=== PATIENT | male | born 1985 | race Caucasian/White ===

== ENCOUNTER 2019-03-22 18:07 | Emergency (ER) | payer BC ==
[2019-03-22 18:19] VITALS: TEMP 98.2
[2019-03-22] MEDS ORDERED: methylPREDNISolone SOD SUCCI 125 MG/2 ML VIAL IV STA (18:43)
[2019-03-22] MEDS ORDERED: IPRATROPIUM-ALBUTEROL 3 ML NEB INHALATION STA (18:43)
[2019-03-22 19:14] LABS: Basophils % (A) 0 %; Eosinophils # (A) 0.1 k/uL (0-0.7); Eosinophils % (A) 1 %; HCT 40.2 % (39.0-53.0); HGB 13.2 gm/dL (13.0-17.5); Lymphocytes # (A) 2.1 k/uL (1.0-4.8); Lymphocytes % (A) 20 %; MCH 28.7 pg (25.0-35.0); MCHC 32.9 g/dL (31.0-37.0); MCV 87.4 fL (80.0-100.0); Mean Platelet Volume 6.9; Monocytes # (A) 0.3 k/uL (0-1.0); Monocytes % (A) 3 %; Neutrophils # (A) 7.6 k/uL (1.3-7.7); Neutrophils % (A) 75 %; Platelet Count 319 k/uL (150-450); RBC 4.61 m/uL (4.30-5.90); RDW 14.4 % (11.5-15.5); WBC 10.1 k/uL (3.8-10.6)
[2019-03-22 19:17] LABS: ALT 41 U/L (21-72); AST 29 U/L (17-59); Albumin 4.6 g/dL (3.5-5.0); Alkaline Phosphatase 74 U/L (38-126); Anion Gap 12 mmol/L; Blood Urea Nitrogen 19 mg/dL (9-20); Calcium 10.3 mg/dL (8.4-10.2); Carbon Dioxide 23 mmol/L (22-30); Chloride 104 mmol/L (98-107); Glucose 138 mg/dL (74-99); Potassium 3.9 mmol/L (3.5-5.1); Sodium 139 mmol/L (137-145); Total Bilirubin 0.6 mg/dL (0.2-1.3); Total Protein 7.6 g/dL (6.3-8.2)
--- NOTE | 2019-03-22 19:18 | ED ---
General Adult HPI - General Chief complaint: Upper Respiratory Infection Stated complaint: pneumonia Time Seen by Provider: 03/22/19 18:24 Source: patient Mode of arrival: ambulatory Limitations: no limitations - History of Present Illness Initial comments: 34-year-old male patient presents to the emergency department today for evaluation of cough, shortness of breath, and intermittent chest pain. Patient states he has been sick with upper respiratory symptoms for the last 3 weeks. Patient states he has been and multiple times to his primary care physician. States initially he was started on amoxicillin for upper respiratory symptoms. Patient states his symptoms persisted so he returned to his primary doctor was then switched to cefdinir. Patient states he was in to see his primary care physician on Friday once again due to worsening of his symptoms had a chest x- ray which showed pneumonia. He was switched to Levaquin. States he did re cently complete a Medrol Dosepak and has been using both Pro Air inhaler and nebulized albuterol treatments 3 times daily. Patient states that despite use of these medications his symptoms seem to be worsening. Patient states he does feel short of breath with any activity. States he is coughing but denies any sputum production. Denies any fevers or chills with states he does get clammy and hot at times. Patient denies any history of chronic lung conditions. Denies any history of smoking. 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 Patient denies any recent rash, abdominal pain, nausea, vomiting, diarrhea, constipation, back pain, numbness, tingling, dizziness, weakness, hematuria, dysuria, urinary urgency, urinary frequency, headache, visual changes, or any other complaints. - Related Data Home Medications Medication Instructions Recorded Confirmed Levofloxacin [Levaquin] 500 mg PO DAILY 03/22/19 03/22/19 Previous Rx's Medication Instructions Recorded Promethazine 6.25MG/5Ml [Phenergan 6.25 mg PO Q6H #100 ml 03/22/19 Syrup] guaiFENesin-DM 600/30MG [Mucinex 1 each PO Q12HR #10 tab.er.12h 03/22/19 Dm] predniSONE 50 mg PO DAILY #5 tablet 03/22/19 Allergies Allergy/AdvReac Type Severity Reaction Status Date / Time No Known Allergies Allergy Verified 03/22/19 18:45 Review of Systems ROS Statement: Those systems with pertinent positive or pertinent negative responses have been documented in the HPI. ROS Other: All systems not noted in ROS Statement are negative. Past Medical History Past Medical History: Hypertension History of Any Multi-Drug Resistant Organisms: None Reported Past Surgical History: Appendectomy Additional Past Surgical History / Comment(s): right shoulder Past Psychological History: No Psychological Hx Reported Smoking Status: Never smoker Past Alcohol Use History: None Reported Past Drug Use History: None Reported General Exam Limitations: no limitations General appearance: alert, in no apparent distress, other (Physical well- developed, well-nourished adult male patient in no acute distress. Vital signs upon presentation are temperature 98.2F orally, pulse 69, respirations 18, blood pressure 140/80, pulse ox 99% on room air.) Eye exam: Present: normal appearance, PERRL, EOMI. Absent: scleral icterus, conjunctival injection, periorbital swelling ENT exam: Present: normal exam, normal oropharynx, mucous membranes moist, TM's normal bilaterally Respiratory exam: Present: wheezes (Course expiratory wheezing in the posterior lower lobes). Absent: normal lung sounds bilaterally, respiratory distress, rales, rhonchi, stridor Cardiovascular Exam: Present: regular rate, normal rhythm, normal heart sounds. Absent: systolic murmur, diastolic murmur, rubs, gallop, clicks GI/Abdominal exam: Present: soft, normal bowel sounds. Absent: distended, tenderness, guarding, rebound, rigid Neurological exam: Present: alert, oriented X3, CN II-XII intact Psychiatric exam: Present: normal affect, normal mood Skin exam: Present: warm, dry, intact, normal color. Absent: rash Course Vital Signs 03/22/19 03/22/19 03/22/19 18:12 19:17 19:18 Temperature 98.2 F Pulse Rate 69 80 Respiratory 18 18 Rate Blood Pressure 140/80 O2 Sat by Pulse 99 Oximetry 03/22/19 03/22/19 19:28 21:25 Temperature Pulse Rate 84 60 Respiratory 16 Rate Blood Pressure 137/81 O2 Sat by Pulse 98 Oximetry Medical Decision Making - Lab Data Result diagrams: 03/22/19 18:54 03/22/19 18:54 Lab Results 03/22/19 03/22/19 03/22/19 Range/Units 18:54 18:54 18:54 WBC 10.1 (3.8-10.6) k/uL RBC 4.61 (4.30-5.90) m/uL Hgb 13.2 (13.0-17.5) gm/dL Hct 40.2 (39.0-53.0) % MCV 87.4 (80.0-100.0) fL MCH 28.7 (25.0-35.0) pg MCHC 32.9 (31.0-37.0) g/dL RDW 14.4 (11.5-15.5) % Plt Count 319 (150-450) k/uL Neutrophils % 75 % Lymphocytes % 20 % Monocytes % 3 % Eosinophils % 1 % Basophils % 0 % Neutrophils # 7.6 (1.3-7.7) k/uL Lymphocytes # 2.1 (1.0-4.8) k/uL Monocytes # 0.3 (0-1.0) k/uL Eosinophils # 0.1 (0-0.7) k/uL Basophils # 0.0 (0-0.2) k/uL D-Dimer (<0.60) mg/L FEU Sodium 139 (137-145) mmol/L Potassium 3.9 (3.5-5.1) mmol/L Chloride 104 (98-107) mmol/L Carbon Dioxide 23 (22-30) mmol/L Anion Gap 12 mmol/L BUN 19 (9-20) mg/dL Creatinine 0.85 (0.66-1.25) mg/dL Est GFR (CKD-EPI)AfAm >90 (>60 ml/min/1.73 sqM) Est GFR (CKD-EPI)NonAf >90 (>60 ml/min/1.73 sqM) Glucose 138 H (74-99) mg/dL Plasma Lactic Acid Sohan 1.4 (0.7-2.0) mmol/L Calcium 10.3 H (8.4-10.2) mg/dL Total Bilirubin 0.6 (0.2-1.3) mg/dL AST 29 (17-59) U/L ALT 41 (21-72) U/L Alkaline Phosphatase 74 (38-126) U/L Troponin I (0.000-0.034) ng/mL NT-Pro-B Natriuret Pep pg/mL Total Protein 7.6 (6.3-8.2) g/dL Albumin 4.6 (3.5-5.0) g/dL 03/22/19 03/22/19 03/22/19 Range/Units 18:54 18:54 18:54 WBC (3.8-10.6) k/uL RBC (4.30-5.90) m/uL Hgb (13.0-17.5) gm/dL Hct (39.0-53.0) % MCV (80.0-100.0) fL MCH (25.0-35.0) pg MCHC (31.0-37.0) g/dL RDW (11.5-15.5) % Plt Count (150-450) k/uL Neutrophils % % Lymphocytes % % Monocytes % % Eosinophils % % Basophils % % Neutrophils # (1.3-7.7) k/uL Lymphocytes # (1.0-4.8) k/uL Monocytes # (0-1.0) k/uL Eosinophils # (0-0.7) k/uL Basophils # (0-0.2) k/uL D-Dimer 0.19 (<0.60) mg/L FEU Sodium (137-145) mmol/L Potassium (3.5-5.1) mmol/L Chloride (98-107) mmol/L Carbon Dioxide (22-30) mmol/L Anion Gap mmol/L BUN (9-20) mg/dL Creatinine (0.66-1.25) mg/dL Est GFR (CKD-EPI)AfAm (>60 ml/min/1.73 sqM) Est GFR (CKD-EPI)NonAf (>60 ml/min/1.73 sqM) Glucose (74-99) mg/dL Plasma Lactic Acid Sohan (0.7-2.0) mmol/L Calcium (8.4-10.2) mg/dL Total Bilirubin (0.2-1.3) mg/dL AST (17-59) U/L ALT (21-72) U/L Alkaline Phosphatase (38-126) U/L Troponin I <0.012 (0.000-0.034) ng/mL NT-Pro-B Natriuret Pep 28 pg/mL Total Protein (6.3-8.2) g/dL Albumin (3.5-5.0) g/dL - EKG Data -: EKG Interpreted by Me EKG Comments: 34-year-old male patient presented to the emergency department today for evaluation of cough and shortness of breath. Patient states he's been sick for the last 3 weeks. Patient states he is switched and is on his third antibiotic. Physical examination reveals coarse lung sounds in the lower lobes posteriorly. He is afebrile with normal vital signs. Normal oxygen saturation. Chest x-ray shows no acute cardio pulmonary process. Labs reviewed and reveals normal white blood cell count. Negative d-dimer. Patient will be treated for acute bronchitis with prednisone, he is urged to increase frequency of his home breathing treatments to every 3-4 hours. He is instructed to follow-up with his primary care physician for recheck in 1-2 days. Return parameters discussed in detail. He verbalizes understanding and agrees with this plan. Disposition Clinical Impression: Acute bronchitis Disposition: HOME SELF-CARE Condition: Good Instructions (If sedation given, give patient instructions): Acute Bronchitis (ED) Additional Instructions: Complete medications as directed. Follow-up through primary care physician for recheck in 1-2 days. Return to the emergency department immediately for any new, worsening, or concerning symptoms Prescriptions: guaiFENesin-DM 600/30MG [Mucinex Dm] 1 each PO Q12HR #10 tab.er.12h Promethazine 6.25MG/5Ml [Phenergan Syrup] 6.25 mg PO Q6H #100 ml predniSONE 50 mg PO DAILY #5 tablet Is patient prescribed a controlled substance at d/c from ED?: No Referrals: Lloyd Mayes MD [Primary Care Provider] - 1-2 days Time of Disposition: 21:29
--- NOTE | 2019-03-22 19:22 | XR ---
EXAMINATION TYPE: XR chest 2V DATE OF EXAM: 03/22/2019 COMPARISON: NONE HISTORY: Cough and congestion TECHNIQUE: Frontal and lateral views of the chest are obtained. FINDINGS: Heart and mediastinum are normal. Lungs are clear. Diaphragm is normal. Bony thorax appear s normal. IMPRESSION: Normal chest. No change.
[2019-03-22 21:26] VITALS: BP 137/81; PULSE 60; RESP 16
== END 2019-03-22 21:40 | disposition home or self-care (01) ==
LOC: EC 18:07
DX: J20.9 Acute bronchitis, unspecified (principal)
CPT/HCPCS: 36415; 94640; 93005; 85379; 83880; 80053; 83605; 84484; 85025; 87040; 71046; 99285; 96374; J2930

== ENCOUNTER 2020-01-19 08:53 | Emergency (ER) | payer BC ==
[2020-01-19] MEDS ORDERED: SODIUM CHLORIDE 0.9% 1,000 ML IV STA (09:38)
[2020-01-19 09:47] LABS: Basophils % (A) 1 %; Eosinophils # (A) 0.2 k/uL (0-0.7); Eosinophils % (A) 4 %; HGB 14.5 gm/dL (13.0-17.5); Lymphocytes # (A) 1.4 k/uL (1.0-4.8); Lymphocytes % (A) 23 %; MCH 29.2 pg (25.0-35.0); MCV 88.4 fL (80.0-100.0); Mean Platelet Volume 7.1; Monocytes # (A) 0.3 k/uL (0-1.0); Monocytes % (A) 5 %; Neutrophils # (A) 3.8 k/uL (1.3-7.7); Neutrophils % (A) 66 %; Platelet Count 253 k/uL (150-450); RBC 4.97 m/uL (4.30-5.90); RDW 13.2 % (11.5-15.5); WBC 5.8 k/uL (3.8-10.6)
--- NOTE | 2020-01-19 09:52 | ED ---
General Adult HPI <Pritesh Haynes - Last Filed: 01/19/20 11:11> - General Source: patient, RN notes reviewed Mode of arrival: ambulatory Limitations: no limitations <Db Link - Last Filed: 01/19/20 15:32> - General Chief complaint: Dizziness Stated complaint: Vomiting/Dizziness Time Seen by Provider: 01/19/20 09:13 - History of Present Illness Initial comments: 34-year-old male with a past medical history of hypertension presents to the emergency department for a chief complaint of balance issues. Patient states he woke up at 6:30 this morning and felt dizzy. Patient states he did earlier feelike the room is spinning and somewhat lightheaded. Patient states that he seems like when he walks he veers somewhat to the left. He states he feels like he is going to fall when he walks. He does not feel especially dizzy at this time. Patient has never had this happen before. He denies headache. (Db Link) - Related Data Home Medications Medication Instructions Recorded Confirmed Multivitamins, Thera [Multivitamin 1 tab PO DAILY 01/19/20 01/19/20 (formulary)] Terbinafine [LamISIL] 250 mg PO DAILY 01/19/20 01/19/20 buPROPion HCL [Wellbutrin XL] 150 mg PO DAILY 01/19/20 01/19/20 Allergies Allergy/AdvReac Type Severity Reaction Status Date / Time No Known Allergies Allergy Verified 01/19/20 09:54 Review of Systems ROS Other: All systems not noted in ROS Statement are negative. <Pritesh Haynes - Last Filed: 01/19/20 11:11> ROS Other: All systems not noted in ROS Statement are negative. <Db Link - Last Filed: 01/19/20 15:32> ROS Statement: Those systems with pertinent positive or pertinent negative responses have been documented in the HPI. Past Medical History Past Medical History: Hypertension History of Any Multi-Drug Resistant Organisms: None Reported Past Surgical History: Appendectomy Additional Past Surgical History / Comment(s): right shoulder Past Psychological History: Depression Smoking Status: Never smoker Past Alcohol Use History: None Reported Past Drug Use History: None Reported <Db Link - Last Filed: 01/19/20 15:32> General Exam Limitations: no limitations General appearance: alert, in no apparent distress Head exam: Present: atraumatic, normocephalic, normal inspection Eye exam: Present: normal appearance, PERRL, EOMI. Absent: scleral icterus, co njunctival injection, periorbital swelling ENT exam: Present: normal exam, mucous membranes moist Neck exam: Present: normal inspection, full ROM. Absent: tenderness, meningismus, lymphadenopathy Respiratory exam: Present: normal lung sounds bilaterally. Absent: respiratory distress, wheezes, rales, rhonchi, stridor Cardiovascular Exam: Present: regular rate, normal rhythm, normal heart sounds. Absent: systolic murmur, diastolic murmur, rubs, gallop, clicks GI/Abdominal exam: Present: soft, normal bowel sounds. Absent: distended, tenderness, guarding, rebound, rigid Neurological exam: Present: alert, oriented X3, CN II-XII intact. Absent: normal gait (When walking at a normal paced patient does walk to the left) Expanded Patient oriented to: Present: person, place, time Speech: Present: fluid speech Cranial nerves: EOM's Intact: Normal, Tongue Deviation: Normal, Nystagmus: Normal, Facial Sensation: Normal Cerebellar function: Finger to Nose: Normal, Romberg: Normal Upper motor neuron: Amos Neglect: Normal, Pronator Drift: Normal Sensory exam: Upper Extremity Light Touch: Normal, Upper Extremity Pin Prick: Normal, Lower Extremity Light Touch: Normal, Lower Extremity Pin Prick: Normal Motor strength exam: RUE: 5 (Hold for 10 seconds), LUE: 5 (Hold for 10 seconds), RLE: 5 (Hold for 5 seconds), LLE: 5 (Holds for 5 seconds) Eye Response: (4) open spontaneously Motor Response: (6) obeys commands Verbal Response: (5) oriented Horacio Total: 15 Psychiatric exam: Present: normal affect, normal mood <Db Link - Last Filed: 01/19/20 15:32> Course <Pritesh Haynes - Last Filed: 01/19/20 11:11> Vital Signs 01/19/20 01/19/20 01/19/20 08:55 09:48 09:51 Temperature 97.5 F L 98.4 F Pulse Rate 48 L 54 L 56 L Respiratory 18 16 16 Rate Blood Pressure 178/117 145/73 147/72 O2 Sat by Pulse 99 98 100 Oximetry 01/19/20 01/19/20 01/19/20 10:01 11:00 11:12 Temperature 97.2 F L Pulse Rate 50 L 49 L 70 Respiratory 16 18 16 Rate Blood Pressure 125/91 126/80 123/80 O2 Sat by Pulse 95 98 98 Oximetry 01/19/20 01/19/20 01/19/20 11:30 12:00 12:30 Temperature 97.2 F L 98.2 F 98.0 F Pulse Rate 48 L 47 L 46 L Respiratory 18 18 18 Rate Blood Pressure 127/86 119/82 131/86 O2 Sat by Pulse 98 97 98 Oximetry 01/19/20 13:00 Temperature 98.2 F Pulse Rate 47 L Respiratory 18 Rate Blood Pressure 130/89 O2 Sat by Pulse 97 Oximetry - Reevaluation(s) Reevaluation #1: 01/19/20 09:55 Patient is also examined by myself, Dr. Haynes. Patient states she noticed symptoms when he woke this morning. Last known well was last night. Patient complains of dizziness described as a spinning type sensation. Symptoms worsen with position changes and upright position. Patient states he does notice that he leans the left. This was noticed by staff when they tried and delayed him. Otherwise neurological exam by myself was negative. Pupils equal round reactive to light. Extraocular muscles intact. Cranial nerves II-12 intact. Good sensation throughout. Extremity strength 5/5 throughout.. Finger Nose test within normal limits bilaterally. No nystagmus. Case was discussed with neural interventional list, Dr. jolly who agrees patient is not a TPA candidate. He says of CT and CTA are negative patient can be admitted for neurology evaluation here. 01/19/20 11:[address] Ibanez, who will admit (Pritesh Haynes) EKG Findings - EKG Comments: EKG Findings:: Sinus bradycardia, ventricular rate 42, PA interval 178, QTC 374 <Db Link - Last Filed: 01/19/20 15:32> Medical Decision Making - Lab Data Result diagrams: 01/19/20 09:30 01/19/20 09:30 <Pritesh Haynes - Last Filed: 01/19/20 11:11> - Lab Data Result diagrams: 01/19/20 09:30 01/19/20 09:30 <Db Link - Last Filed: 01/19/20 15:32> - Medical Decision Making 34-year-old male presents for dizziness and gait disturbance. Patient is walking to the left. A code stroke was called as soon as i saw patient. Dr. Haynes spoke to neuro interventionalist who recommends no TPA. NIH of 0 however patient does walk to the left. CT brain shows no acute intracranial hemorrhage, mass effect, or midline shift. CT angiogram head and neck shows no significant focal stenosis at the level of [place], internal carotid arteries. CBC CMP unremarkable. Chest x-ray shows no acute process. Patient reevaluated and continues to feel dizzy. Case was discussed with Dr. Ibanez by Dr. Haynes who accepts admission, neurology consulted (Db Link) - Lab Data Lab Results 01/19/20 01/19/20 01/19/20 Range/Units 09:30 09:30 09:30 WBC 5.8 (3.8-10.6) k/uL RBC 4.97 (4.30-5.90) m/uL Hgb 14.5 (13.0-17.5) gm/dL Hct 44.0 (39.0-53.0) % MCV 88.4 (80.0-100.0) fL MCH 29.2 (25.0-35.0) pg MCHC 33.0 (31.0-37.0) g/dL RDW 13.2 (11.5-15.5) % Plt Count 253 (150-450) k/uL Neutrophils % 66 % Lymphocytes % 23 % Monocytes % 5 % Eosinophils % 4 % Basophils % 1 % Neutrophils # 3.8 (1.3-7.7) k/uL Lymphocytes # 1.4 (1.0-4.8) k/uL Monocytes # 0.3 (0-1.0) k/uL Eosinophils # 0.2 (0-0.7) k/uL Basophils # 0.0 (0-0.2) k/uL PT 10.0 (9.0-12.0) sec INR 1.0 (<1.2) APTT 23.5 (22.0-30.0) sec Sodium 138 (137-145) mmol/L Potassium 4.2 (3.5-5.1) mmol/L Chloride 103 (98-107) mmol/L Carbon Dioxide 25 (22-30) mmol/L Anion Gap 10 mmol/L BUN 15 (9-20) mg/dL Creatinine 0.92 (0.66-1.25) mg/dL Est GFR (CKD-EPI)AfAm >90 (>60 ml/min/1.73 sqM) Est GFR (CKD-EPI)NonAf >90 (>60 ml/min/1.73 sqM) Glucose 116 H (74-99) mg/dL Calcium 9.8 (8.4-10.2) mg/dL Total Bilirubin 0.5 (0.2-1.3) mg/dL AST 24 (17-59) U/L ALT 31 (4-49) U/L Alkaline Phosphatase 104 (38-126) U/L Troponin I (0.000-0.034) ng/mL Total Protein 7.8 (6.3-8.2) g/dL Albumin 4.8 (3.5-5.0) g/dL 01/19/20 Range/Units 09:30 WBC (3.8-10.6) k/uL RBC (4.30-5.90) m/uL Hgb (13.0-17.5) gm/dL Hct (39.0-53.0) % MCV (80.0-100.0) fL MCH (25.0-35.0) pg MCHC (31.0-37.0) g/dL RDW (11.5-15.5) % Plt Count (150-450) k/uL Neutrophils % % Lymphocytes % % Monocytes % % Eosinophils % % Basophils % % Neutrophils # (1.3-7.7) k/uL Lymphocytes # (1.0-4.8) k/uL Monocytes # (0-1.0) k/uL Eosinophils # (0-0.7) k/uL Basophils # (0-0.2) k/uL PT (9.0-12.0) sec INR (<1.2) APTT (22.0-30.0) sec Sodium (137-145) mmol/L Potassium (3.5-5.1) mmol/L Chloride (98-107) mmol/L Carbon Dioxide (22-30) mmol/L Anion Gap mmol/L BUN (9-20) mg/dL Creatinine (0.66-1.25) mg/dL Est GFR (CKD-EPI)AfAm (>60 ml/min/1.73 sqM) Est GFR (CKD-EPI)NonAf (>60 ml/min/1.73 sqM) Glucose (74-99) mg/dL Calcium (8.4-10.2) mg/dL Total Bilirubin (0.2-1.3) mg/dL AST (17-59) U/L ALT (4-49) U/L Alkaline Phosphatase (38-126) U/L Troponin I <0.012 (0.000-0.034) ng/mL Total Protein (6.3-8.2) g/dL Albumin (3.5-5.0) g/dL Disposition <Pritesh Haynes - Last Filed: 01/19/20 11:11> Time of Disposition: 15:32 <Db Link - Last Filed: 01/19/20 15:32> Clinical Impression: Gait instability, Dizzy Disposition: ADMITTED IP TO THIS HOSP Referrals: Lloyd Mayes MD [Primary Care Provider] - 1-2 days
[2020-01-19 09:55] LABS: Partial Thromboplastin Time 23.5 sec (22.0-30.0)
[2020-01-19 10:03] LABS: ALT 31 U/L (4-49); AST 24 U/L (17-59); African American GFR (CKD) >90 (>60 ml/min/1.73 sqM); Albumin 4.8 g/dL (3.5-5.0); Alkaline Phosphatase 104 U/L (38-126); Anion Gap 10 mmol/L; Blood Urea Nitrogen 15 mg/dL (9-20); Calcium 9.8 mg/dL (8.4-10.2); Carbon Dioxide 25 mmol/L (22-30); Chloride 103 mmol/L (98-107); Glucose 116 mg/dL (74-99); Non-African American GFR(CKD) >90 (>60 ml/min/1.73 sqM); Potassium 4.2 mmol/L (3.5-5.1); Sodium 138 mmol/L (137-145); Total Bilirubin 0.5 mg/dL (0.2-1.3); Total Protein 7.8 g/dL (6.3-8.2)
--- NOTE | 2020-01-19 10:09 | CT ---
EXAMINATION TYPE: CT brain wo con DATE OF EXAM: 01/19/2020 COMPARISON: NONE HISTORY: dizziness, neurologic deficit. CT DLP: 1030 mGycm. Automated Exposure Control for Dose Reduction was Utilized. TECHNIQUE: CT scan of the head is performed without contrast. FINDINGS: There is no acute intracranial hemorrhage, mass effect, or midline shift identified. Prom inent temporal dural reflections are seen. The ventricles and sulci are within normal limits in size. The globes are intact and the visualized sinuses are clear. Incidentally noted left-sided rona bu llosa. Hypoplastic frontal sinuses. Mastoid air cells are well aerated as are the middle ear cavities . IMPRESSION: No acute intracranial hemorrhage, mass effect, or midline shift is seen.
--- NOTE | 2020-01-19 10:28 | CT ---
EXAMINATION TYPE: CT angio head neck DATE OF EXAM: 01/19/2020 HISTORY: Dizziness acute onset stroke like symptoms. Code stroke. COMPARISON: NONE CT DLP: 830 mGycm. Automated Exposure Control for Dose Reduction was Utilized. TECHNIQUE: CTA scan of the head and neck are performed with IV Contrast, patient injected with 65 mL of Isovue 370, axial images are obtained, coronal and sagittal reformatted images are reviewed. Thre e-D reconstructed images are created on an independent workstation and reviewed. FINDINGS: Carotid/Vascular Structures: Normal three-vessel origin from the aortic arch. Normal origin right com mon carotid artery from brachiocephalic artery. No significant plaque or stenosis in common, external , or internal carotid arteries bilaterally including a level carotid bulb. There is slightly larger dominant left vertebral artery. Vertebral arteries are patent to the basilar junction. There is patent left posterior communicating artery. There is hypoplastic right posterior communicating artery. No significant focal stenosis or aneurysmal change in the posterior circulation . Images of the anterior circulation show poor visualization of anterior communicating artery as ante rior cerebral arteries are may relate overlapping. No significant focal stenosis or aneurysmal change is present. Other: Dextroconvex scoliosis centered upper to mid thoracic spine. IMPRESSION: No significant focal stenosis or aneurysmal change at the level of the [place]. No significant focal stenosis in common or internal carotid arteries bilaterally.
--- NOTE | 2020-01-19 10:50 | XR ---
EXAMINATION TYPE: XR chest 2V DATE OF EXAM: 01/19/2020 COMPARISON: Prior chest dated 03/22/2019 HISTORY: Altered mental status, dizziness TECHNIQUE: Frontal and lateral views of the chest are obtained. FINDINGS: There is no focal air space opacity, pleural effusion, or pneumothorax seen. The cardiac silhouette size is within normal limits. The osseous structures are intact. IMPRESSION: No acute cardiopulmonary process.
[2020-01-19] MEDS ORDERED: MECLIZINE 12.5 MG TAB PO STA (11:05)
[2020-01-19] MEDS ORDERED: METOCLOPRAMIDE 5 MG/ML 2 ML VIAL IVP STA (11:05)
[2020-01-19] MEDS ORDERED: ASPIRIN 325 MG TAB PO STA (11:11)
[2020-01-19 13:22] VITALS: BP 130/89; PULSE 47; RESP 18; TEMP 98.2
--- NOTE | 2020-01-19 18:00 | ECHOF ---
Referral Reason:Thrombus MEASUREMENTS -------- HEIGHT: 162.6 cm WEIGHT: 113.4 kg BP: 125/91 RVIDd: 3.3 cm (< 3.3) IVSd: 1.0 cm (0.6 - 1.1) LVIDd: 4.8 cm (3.9 - 5.3) LVPWd: 1.1 cm (0.6 - 1.1) IVSs: 1.2 cm LVIDs: 3.1 cm LVPWs: 1.2 cm Ao Diam: 3.6 cm (2.0 - 3.7) AV Cusp: 2.3 cm (1.5 - 2.6) LA Diam: 4.0 cm (2.7 - 3.8) MV EXCURSION: 18.395 mm (> 18.000) MV EF SLOPE: 80 mm/s (70 - 150) EPSS: 0.8 cm MV E Jacob: 0.70 m/s MV DecT: 207 ms MV A Jacob: 0.55 m/s MV E/A Ratio: 1.27 RAP: 5.00 mmHg RVSP: 24.97 mmHg FINDINGS -------- Sinus rhythm. This was a technically good study. LV size, wall thickness and systolic function are normal, with an EF greater than 55%. The left rosanna tricular size is normal. Overall left ventricular systolic function is low-normal with, an EF betwe en 50 - 55 %. The diastolic filling pattern is normal for the age of the patient 7.31. The right ventricle is normal in size. The left atrial size is normal. The right atrial size is normal. The aortic valve is trileaflet, and appears structurally normal. No aortic stenosis or regurgitation. Mild mitral regurgitation is present. Mild tricuspid regurgitation present. Right ventricular systolic pressure is normal at < 35 mmHg. There is no evidence of pulmonary hypertension. There is no pulmonic regurgitation present. The aortic root size is normal. There is no pericardial effusion. CONCLUSIONS -------- 1. Sinus rhythm. 2. This was a technically good study. 3. LV size, wall thickness and systolic function are normal, with an EF greater than 55%. 4. The left ventricular size is normal. 5. Overall left ventricular systolic function is low-normal with, an EF between 50 - 55 %. 6. The diastolic filling pattern is normal for the age of the patient 7.31 7. The right ventricle is normal in size. 8. The left atrial size is normal. 9. The right atrial size is normal. 10. The aortic valve is trileaflet, and appears structurally normal. No aortic stenosis or regurgitat ion. 11. Mild mitral regurgitation is present. 12. Mild tricuspid regurgitation present. 13. Right ventricular systolic pressure is normal at < 35 mmHg. 14. There is no evidence of pulmonary hypertension. 15. There is no pulmonic regurgitation present. 16. The aortic root size is normal. 17. There is no pericardial effusion. BALLISTIC EXPERT: Marge Squires RDCS
[2020-01-20] MEDS ORDERED: ASPIRIN 325 MG TAB PO SCH (09:00)
== END 2020-01-19 15:20 | disposition other institution (70) ==
LOC: EC 08:53
DX: R42 Dizziness and giddiness (principal); R26.81 Unsteadiness on feet; I10 Essential (primary) hypertension; F32.9 Major depressive disorder, single episode, unspecified; Z79.899 Other long term (current) drug therapy
CPT/HCPCS: 36415; 93005; 93306; 80053; 84484; 85025; 85610; 85730; 71046; 70496; 70450; 70498; 99285; 96374; 96361 ×2; J2765; Q9967

== ENCOUNTER 2020-06-16 17:11 | Emergency (ER) | payer BC, OTHER ==
[2020-06-16 17:27] VITALS: TEMP 98.8
[2020-06-16 18:24] LABS: Basophils # (A) 0.1 k/uL (0-0.2); Basophils % (A) 1 %; Eosinophils # (A) 0.2 k/uL (0-0.7); Eosinophils % (A) 4 %; HCT 40.3 % (39.0-53.0); HGB 13.3 gm/dL (13.0-17.5); Lymphocytes # (A) 2.2 k/uL (1.0-4.8); Lymphocytes % (A) 36 %; MCH 29.4 pg (25.0-35.0); MCHC 32.9 g/dL (31.0-37.0); MCV 89.3 fL (80.0-100.0); Mean Platelet Volume 7.3; Monocytes # (A) 0.5 k/uL (0-1.0); Monocytes % (A) 7 %; Neutrophils # (A) 3.1 k/uL (1.3-7.7); Neutrophils % (A) 50 %; Platelet Count 251 k/uL (150-450); RBC 4.51 m/uL (4.30-5.90); RDW 13.3 % (11.5-15.5); WBC 6.3 k/uL (3.8-10.6)
[2020-06-16] MEDS ORDERED: ASPIRIN 81 MG PO STA (18:30)
[2020-06-16] MEDS ORDERED: SODIUM CHLORIDE 0.9% 1,000 ML IV STA (18:30)
--- NOTE | 2020-06-16 18:35 | ED ---
General Adult HPI - General Chief complaint: Extremity Problem,Nontraumatic Stated complaint: Blood Clot left leg Time Seen by Provider: 06/16/20 18:00 Source: patient, RN notes reviewed Mode of arrival: ambulatory Limitations: no limitations - History of Present Illness Initial comments: Patient is a pleasant 35-year-old male presenting to the emergency Department with complaints of left leg discomfort. Patient had an episode of chest discomfort throughout the night while he was in bed. Patient states symptoms felt indigestion and lasted around 1 hour. No radiation. No associated dyspnea, diaphoresis, or nausea. Patient has no chest discomfort at this time. Patient never had any dyspnea. Patient has had left leg discomfort for the past week. Patient states it feels like a pulled muscle. Patient states he did go to his primary care physician office and ultrasound there was concerning for blood clot. Patient advised to come to the emergency department - Related Data Home Medications Medication Instructions Recorded Confirmed Multivitamins, Thera [Multivitamin 1 tab PO DAILY 01/19/20 01/19/20 (formulary)] Terbinafine [LamISIL] 250 mg PO DAILY 01/19/20 01/19/20 buPROPion HCL [Wellbutrin XL] 150 mg PO DAILY 01/19/20 01/19/20 Previous Rx's Medication Instructions Recorded Apixaban [Eliquis Starter Pack 0 mg PO DIRECTED 30 Days #1 pack 06/16/20 (for VTE)] Allergies Allergy/AdvReac Type Severity Reaction Status Date / Time No Known Allergies Allergy Verified 01/19/20 09:54 Review of Systems ROS Statement: Those systems with pertinent positive or pertinent negative responses have been documented in the HPI. ROS Other: All systems not noted in ROS Statement are negative. Constitutional: Denies: fever Eyes: Denies: eye pain ENT: Denies: ear pain Respiratory: Denies: cough, dyspnea Cardiovascular: Reports: chest pain Endocrine: Denies: fatigue Gastrointestinal: Denies: abdominal pain Genitourinary: Denies: dysuria Musculoskeletal: Reports: as per HPI Skin: Denies: rash Neurological: Denies: weakness Past Medical History Past Medical History: Hypertension History of Any Multi-Drug Resistant Organisms: None Reported Past Surgical History: Appendectomy Additional Past Surgical History / Comment(s): right shoulder Past Psychological History: Depression Smoking Status: Never smoker Past Alcohol Use History: None Reported Past Drug Use History: None Reported General Exam Limitations: no limitations General appearance: alert, in no apparent distress Head exam: Present: normocephalic Eye exam: Present: normal appearance Neck exam: Present: normal inspection Respiratory exam: Present: normal lung sounds bilaterally. Absent: chest wall tenderness Cardiovascular Exam: Present: regular rate, normal rhythm Expanded Peripheral pulses: 2+: Radial (R), Radial (L), Dorsalis Pedis (R), Dorsalis Pedis (L) GI/Abdominal exam: Present: soft. Absent: tenderness Extremities exam: Present: calf tenderness (Left calf tenderness). Absent: pedal edema Neurological exam: Present: alert Psychiatric exam: Present: normal affect, normal mood Skin exam: Present: normal color Course Vital Signs 06/16/20 06/16/20 17:23 19:22 Temperature 98.8 F Pulse Rate 73 72 Respiratory 16 18 Rate Blood Pressure 139/88 124/81 O2 Sat by Pulse 99 99 Oximetry EKG Findings - EKG Comments: EKG Findings:: Normal sinus rhythm 66. UT 164. QRS 102. QT 402. QTC 421. Normal axis. Normal QRS. Inverted T-wave in lead III. Medical Decision Making - Medical Decision Making Case discussed with [facility] physician, Dr. looney covering for Dr. Mayes who did not feel the patient needed to be admitted. He does recommend outpatient treat ment with either Eliqucarroll Xarelto. Patient reevaluated and resting comfortably in bed. Patient updated on results and is comfortable with discharge home. - Lab Data Result diagrams: 06/16/20 18:19 06/16/20 18:19 Lab Results 06/16/20 06/16/20 06/16/20 Range/Units 18:19 18:19 18:19 WBC 6.3 (3.8-10.6) k/uL RBC 4.51 (4.30-5.90) m/uL Hgb 13.3 (13.0-17.5) gm/dL Hct 40.3 (39.0-53.0) % MCV 89.3 (80.0-100.0) fL MCH 29.4 (25.0-35.0) pg MCHC 32.9 (31.0-37.0) g/dL RDW 13.3 (11.5-15.5) % Plt Count 251 (150-450) k/uL Neutrophils % 50 % Lymphocytes % 36 % Monocytes % 7 % Eosinophils % 4 % Basophils % 1 % Neutrophils # 3.1 (1.3-7.7) k/uL Lymphocytes # 2.2 (1.0-4.8) k/uL Monocytes # 0.5 (0-1.0) k/uL Eosinophils # 0.2 (0-0.7) k/uL Basophils # 0.1 (0-0.2) k/uL PT 9.7 (9.0-12.0) sec INR 0.9 (<1.2) APTT 23.9 (22.0-30.0) sec D-Dimer 0.62 H (<0.60) mg/L FEU Sodium 137 (137-145) mmol/L Potassium 4.0 (3.5-5.1) mmol/L Chloride 104 (98-107) mmol/L Carbon Dioxide 24 (22-30) mmol/L Anion Gap 9 mmol/L BUN 19 (9-20) mg/dL Creatinine 1.27 H (0.66-1.25) mg/dL Est GFR (CKD-EPI)AfAm 84 (>60 ml/min/1.73 sqM) Est GFR (CKD-EPI)NonAf 72 (>60 ml/min/1.73 sqM) Glucose 113 H (74-99) mg/dL Calcium 9.4 (8.4-10.2) mg/dL Magnesium 1.9 (1.6-2.3) mg/dL Total Bilirubin 0.4 (0.2-1.3) mg/dL AST 25 (17-59) U/L ALT 31 (4-49) U/L Alkaline Phosphatase 88 (38-126) U/L Troponin I (0.000-0.034) ng/mL NT-Pro-B Natriuret Pep pg/mL Total Protein 7.1 (6.3-8.2) g/dL Albumin 4.3 (3.5-5.0) g/dL 06/16/20 06/16/20 Range/Units 18:19 18:19 WBC (3.8-10.6) k/uL RBC (4.30-5.90) m/uL Hgb (13.0-17.5) gm/dL Hct (39.0-53.0) % MCV (80.0-100.0) fL MCH (25.0-35.0) pg MCHC (31.0-37.0) g/dL RDW (11.5-15.5) % Plt Count (150-450) k/uL Neutrophils % % Lymphocytes % % Monocytes % % Eosinophils % % Basophils % % Neutrophils # (1.3-7.7) k/uL Lymphocytes # (1.0-4.8) k/uL Monocytes # (0-1.0) k/uL Eosinophils # (0-0.7) k/uL Basophils # (0-0.2) k/uL PT (9.0-12.0) sec INR (<1.2) APTT (22.0-30.0) sec D-Dimer (<0.60) mg/L FEU Sodium (137-145) mmol/L Potassium (3.5-5.1) mmol/L Chloride (98-107) mmol/L Carbon Dioxide (22-30) mmol/L Anion Gap mmol/L BUN (9-20) mg/dL Creatinine (0.66-1.25) mg/dL Est GFR (CKD-EPI)AfAm (>60 ml/min/1.73 sqM) Est GFR (CKD-EPI)NonAf (>60 ml/min/1.73 sqM) Glucose (74-99) mg/dL Calcium (8.4-10.2) mg/dL Magnesium (1.6-2.3) mg/dL Total Bilirubin (0.2-1.3) mg/dL AST (17-59) U/L ALT (4-49) U/L Alkaline Phosphatase (38-126) U/L Troponin I <0.012 (0.000-0.034) ng/mL NT-Pro-B Natriuret Pep 31 pg/mL Total Protein (6.3-8.2) g/dL Albumin (3.5-5.0) g/dL - Radiology Data Radiology results: report reviewed (Computed tomography scan the chest shows no evidence of pulmonary embolus. Ultrasound of the left shows mild calf thrombosis, possibly acute) Disposition Clinical Impression: DVT (deep venous thrombosis) Disposition: HOME SELF-CARE Condition: Stable Instructions (If sedation given, give patient instructions): Deep Vein Thromb osis (ED) Additional Instructions: Please follow-up with primary care physician Friday. Return for chest pain, difficulty breathing, worsening or change in symptoms or any other concerns. Please start Eliquis in the morning, prescription given for starter pack. Prescription sent to [facility] Prescriptions: Apixaban [Eliquis Starter Pack (for VTE)] 0 mg PO DIRECTED 30 Days #1 pack Is patient prescribed a controlled substance at d/c from ED?: No Referrals: Evens Mayes MD [STAFF PHYSICIAN] - 1-2 days Time of Disposition: 20:38
[2020-06-16] MEDS ORDERED: HEPARIN SODIUM,PORCINE 10,000 UNIT/ML 1 ML VIAL IV ONE (18:36)
[2020-06-16] MEDS ORDERED: HEPARIN SODIUM,PORCINE 5,000 UNIT/ML 1 ML VIAL IV PRN (18:36)
[2020-06-16 18:42] LABS: INR 0.9 (<1.2); Partial Thromboplastin Time 23.9 sec (22.0-30.0); Prothrombin Time 9.7 sec (9.0-12.0)
[2020-06-16] MEDS ORDERED: HEPARIN SOD,PORK IN 0.45% NACL 25,000 UNIT in 0.45% NACL 1 250ML.BAG IV SCH (18:45)
[2020-06-16 19:04] LABS: D-Dimer 0.62 mg/L FEU (<0.60)
[2020-06-16 19:13] LABS: Albumin 4.3 g/dL (3.5-5.0); Calcium 9.4 mg/dL (8.4-10.2); Magnesium 1.9 mg/dL (1.6-2.3); Total Bilirubin 0.4 mg/dL (0.2-1.3); Total Protein 7.1 g/dL (6.3-8.2)
[2020-06-16 19:23] VITALS: RESP 18
--- NOTE | 2020-06-16 19:29 | CT ---
EXAMINATION TYPE: CT angio chest DATE OF EXAM: 06/16/2020 COMPARISON: None HISTORY: chest pain, SOB CT DLP: 751.7 mGycm Automated exposure control for dose reduction was used. CONTRAST: Performed with IV Contrast, patient injected with 100 mL of Isovue 370. There are 3-D post processed images. Heart is top normal in size. There is no pericardial effusion. There are no hilar masses. There is no mediastinal adenopathy. Thoracic aorta appears normal. There is no aneurysm or dissection. The lungs are clear of consolidation. There is no pleural effusion. There is normal contrast opacification of the pulmonary arteries. There are no filling defects. There is some spurring in the thoracic spine. IMPRESSION: No evidence of pulmonary embolism. Mild cardiomegaly.
--- NOTE | 2020-06-16 20:24 | US ---
EXAMINATION TYPE: US venous doppler duplex LE LT DATE OF EXAM: 06/16/2020 8:04 PM COMPARISON: NONE CLINICAL HISTORY: Pain, possible DVT. Scanned today at a clinic that states they found left calf thro mbus SIDE PERFORMED: Left TECHNIQUE: The lower extremity deep venous system is examined utilizing real time linear array sonog paul with graded compression, doppler sonography and color-flow sonography. VESSELS IMAGED: External Iliac Vein (EIV) Common Femoral Vein Deep Femoral Vein Greater Saphenous Vein * Femoral Vein Popliteal Vein Small Saphenous Vein * Proximal Calf Veins (* superficial vessels) Left Leg: Unable to compress posterior tibial veins just distal to convergence of popiteal vein, int ernal echoes, anterior branch had minimal flow while posterior branch had no flow detected. The rest of the leg was negative for DVT IMPRESSION: There is evidence for some limited deep vein thrombosis in the left calf. This could be a cute.
[2020-06-16] MEDS ORDERED: APIXABAN 5 MG TAB PO STA (20:39)
[2020-06-16 21:19] VITALS: BP 137/88; PULSE 59
== END 2020-06-16 21:19 | disposition home or self-care (01) ==
LOC: EC 17:11
DX: I82.4Z2 Acute embolism and thrombosis of unspecified deep veins of left distal lower extremity (principal); F32.9 Major depressive disorder, single episode, unspecified; Z79.899 Other long term (current) drug therapy
CPT/HCPCS: 36415; 93005; 85379; 83880; 80053; 83735; 84484; 85025; 85610; 85730; 93971; 71275; 99284; 96365; 96366; 96375; J1644 ×2; Q9967

== ENCOUNTER 2023-12-18 10:51 | Emergency (ER) | payer BC, OTHER ==
--- NOTE | 2023-12-18 10:56 | ED ---
Extremity Problem HPI - General Stated complaint: POSS BLOOD CLOT IN LEG Time Seen by Provider: 12/18/23 10:55 - History of Present Illness Initial comments: Quick note: Patient is a 38-year-old gentleman who presents emergency room with complaints of pain and swelling to the right leg for the last 2 days. History DVT. Denies a chest pain shortness breath or hemoptysis. Does not take any anticoagulation. the patient started to feel some chest pain while laying on the stretcher upon arrival into the er. the patient seems anxious but he feels like he moved wrong in the bed and pulled it. he denies any drug use, cigarette smoking, family hx of early cardiac . - Related Data Home Medications Medication Instructions Recorded Confirmed No Known Home Medications 12/18/23 12/18/23 Allergies Allergy/AdvReac Type Severity Reaction Status Date / Time No Known Allergies Allergy Verified 12/18/23 11:59 Review of Systems ROS Statement: Those systems with pertinent positive or pertinent negative responses have been documented in the HPI. ROS Other: All systems not noted in ROS Statement are negative. Past Medical History Past Medical History: Hypertension History of Any Multi-Drug Resistant Organisms: None Reported Past Surgical History: Appendectomy Additional Past Surgical History / Comment(s): right shoulder Past Psychological History: Depression Smoking Status: Never smoker Past Alcohol Use History: None Reported Past Drug Use History: None Reported General Exam - General Exam Comments Initial Comments: Visual Physical Exam Vital signs reviewed General: Well-appearing, nontoxic, no acute distress. Head: Normocephalic, atraumatic Eyes: PERRLA, EOMI ENT: Airway patent Chest: Nonlabored breathing Skin: No visual rash, normal skin tone Neuro: Alert and oriented 3 Musculoskeletal: No gross abnormalities Limitations: no limitations General appearance: alert, in no apparent distress Head exam: Present: atraumatic Eye exam: Present: normal appearance ENT exam: Present: normal exam Neck exam: Present: full ROM Respiratory exam: Present: normal lung sounds bilaterally Cardiovascular Exam: Present: regular rate GI/Abdominal exam: Present: soft Extremities exam: Present: full ROM, calf tenderness (mid calf tenderness, no swelling, no warmth, no erythema), other (palpable distal pulses). Absent: joint swelling Back exam: Present: full ROM Neurological exam: Present: alert, oriented X3, CN II-XII intact Psychiatric exam: Present: normal affect, normal mood Skin exam: Present: warm, dry Course Vital Signs 12/18/23 12/18/23 11:04 14:38 Temperature 98.2 F Pulse Rate 68 61 Respiratory 18 18 Rate Blood Pressure 158/88 146/91 O2 Sat by Pulse 100 96 Oximetry - Reevaluation(s) Reevaluation #1: 12/18/23 1354 : Patient is resting comfortably but this time. He is in no distress. Discussed imaging results which were upper DVT and chest x-rays negative for any acute changes. Patient's labs are unremarkable. EKG is negative for any acute ST segment elevation or changes. Medical Decision Making - Medical Decision Making Quick note portion completed by myself, electronically SARKIS Ibanez. Was pt. sent in by a medical professional or institution (KIRBY Jennings, CIVIL DESIGN SPECIALIST, urgent care, hospital, or jail...) When possible be specific @ -[No] Did you speak to anyone other than the patient for history (EMS, parent, family, police, friend...)? What history was obtained from this source @ - at The bedside Did you review nursing and triage notes (agree or disagree)? Why? @ -[I reviewed and agree with nursing and triage notes] Were old charts reviewed (outside hosp., previous admission, EMS record, old EKG, old radiological studies, urgent care reports/EKG's, jail records)? Report findings @ -[No old charts were reviewed] Differential Diagnosis (chest pain, altered mental status, abdominal pain women, abdominal pain men, vaginal bleeding, weakness, fever, dyspnea, syncope, headache, dizziness, GI bleed, back pain, seizure, CVA, palpatations, mental health, musculoskeletal)? @ -Muscle strain, electrolyte abnormality, DVT, anxiety, angina, costoc hondritis EKG interpreted by me (3pts min.). @ -Shows sinus bradycardia rate of [address] segment elevation or T- wave changes X-rays interpreted by me (1pt min.). @ -[chest x-rays are negative for any acute changes rpreted by me (1pt min.). @ -[None done] U/S interpreted by me (1pt. min.). @ -[None done] What testing was considered but not performed or refused? (CT, X-rays, U/S, labs)? Why? @ -[None] What meds were considered but not given or refused? Why? @ -[None] Did you discuss the management of the patient with other professionals (tanya roman i.e. , PA, CIVIL DESIGN SPECIALIST, lab, RT, psych nurse, rn social work, credit department manager, teacher, conservation enforcement officer, case preparer and liner)? Give summary @ -[No] Was smoking cessation discussed for >3mins.? @ -[No] Was critical care preformed (if so, how long)? @ -[No] Were there social determinants of health that impacted care today? How? (Homelessness, low income, unemployed, alcoholism, drug addiction, tr ansportation, low edu. Level, literacy, decrease access to med. care, shelter, rehab)? @ -[No] Was there de-escalation of care discussed even if they declined (Discuss DNR or withdrawal of care, Hospice)? DNR status @ -[No] What co-morbidities impacted this encounter? (DM, HTN, Smoking, COPD, CAD, Cancer, CVA, ARF, Chemo, Hep., AIDS, mental health diagnosis, sleep apnea, morbid obesity)? @history DVT patient admitted / discharged? Hospital course, mention meds given and route, prescriptions, significant lab abnormalities, going to OR and other pertinent info. @ patient is stable to follow up as an outpatient and does not require admission. new problem with uncertain prognosis? @ -[No] Drug Therapy requiring intensive monitoring for toxicity (Heparin, Nitro, Insulin, Cardizem)? @ -[No] Were any procedures done? @ -[No] Diagnosis/symptom? @ -calf strain, chest pain, suspected anxiety vs muscle strain of the chest wall Acute, or Chronic, or Acute on Chronic? @ -[acute Uncomplicated (without systemic symptoms) or Complicated (systemic symptoms)? @ -[default] Side effects of treatment? @ -[No] Exacerbation, Progression, or Severe Exacerbation? @ -[No] Poses a threat to life or bodily function? How? (Chest pain, [place], NE, pneumonia, PE, COPD, DKA, ARF, appy, cholecystitis, CVA, Diverticulitis, Homicidal, Suicidal, threat to staff... and all critical care pts) @ -[No] - Lab Data Result diagrams: 12/18/23 11:19 12/18/23 11:19 Lab Results 12/18/23 12/18/23 12/18/23 Range/Units 11:19 11:19 11:19 WBC 6.0 (3.8-10.6) k/uL RBC 4.81 (4.30-5.90) m/uL Hgb 14.1 (13.0-17.5) gm/dL Hct 42.7 (39.0-53.0) % MCV 88.7 (80.0-100.0) fL MCH 29.4 (25.0-35.0) pg MCHC 33.1 (31.0-37.0) g/dL RDW 14.4 (11.5-15.5) % Plt Count 275 (150-450) k/uL MPV 7.1 Neutrophils % 55 % Lymphocytes % 36 % Monocytes % 3 % Eosinophils % 3 % Basophils % 1 % Neutrophils # 3.3 (1.3-7.7) k/uL Lymphocytes # 2.2 (1.0-4.8) k/uL Monocytes # 0.2 (0-1.0) k/uL Eosinophils # 0.2 (0-0.7) k/uL Basophils # 0.0 (0-0.2) k/uL PT 10.3 (10.0-12.5) sec INR 0.9 (<1.2) APTT 24.9 (22.0-30.0) sec Sodium 139 (137-145) mmol/L Potassium 3.8 (3.5-5.1) mmol/L Chloride 104 (98-107) mmol/L Carbon Dioxide 26 (22-30) mmol/L Anion Gap 9 mmol/L BUN 14 (9-20) mg/dL Creatinine 0.98 (0.66-1.25) mg/dL Est GFR (CKD-EPI)AfAm >90 (>60 ml/min/1.73 sqM) Est GFR (CKD-EPI)NonAf >90 (>60 ml/min/1.73 sqM) Glucose 132 H (74-99) mg/dL Calcium 9.6 (8.4-10.2) mg/dL Total Bilirubin 0.7 (0.2-1.3) mg/dL AST 73 H (17-59) U/L ALT 120 H (4-49) U/L Alkaline Phosphatase 99 (38-126) U/L Troponin I (0.000-0.034) ng/mL Total Protein 7.3 (6.3-8.2) g/dL Albumin 4.6 (3.5-5.0) g/dL Urine Color Urine Appearance (Clear) Urine pH (5.0-8.0) Ur Specific [place] (1.001-1.035) Urine Protein (Negative) Urine Glucose (UA) (Negative) Urine Ketones (Negative) Urine Blood (Negative) Urine Nitrite (Negative) Urine Bilirubin (Negative) Urine Urobilinogen (<2.0) mg/dL Ur Leukocyte Esterase (Negative) 12/18/23 12/18/23 Range/Units 12:08 12:11 WBC (3.8-10.6) k/uL RBC (4.30-5.90) m/uL Hgb (13.0-17.5) gm/dL Hct (39.0-53.0) % MCV (80.0-100.0) fL MCH (25.0-35.0) pg MCHC (31.0-37.0) g/dL RDW (11.5-15.5) % Plt Count (150-450) k/uL MPV Neutrophils % % Lymphocytes % % Monocytes % % Eosinophils % % Basophils % % Neutrophils # (1.3-7.7) k/uL Lymphocytes # (1.0-4.8) k/uL Monocytes # (0-1.0) k/uL Eosinophils # (0-0.7) k/uL Basophils # (0-0.2) k/uL PT (10.0-12.5) sec INR (<1.2) APTT (22.0-30.0) sec Sodium (137-145) mmol/L Potassium (3.5-5.1) mmol/L Chloride (98-107) mmol/L Carbon Dioxide (22-30) mmol/L Anion Gap mmol/L BUN (9-20) mg/dL Creatinine (0.66-1.25) mg/dL Est GFR (CKD-EPI)AfAm (>60 ml/min/1.73 sqM) Est GFR (CKD-EPI)NonAf (>60 ml/min/1.73 sqM) Glucose (74-99) mg/dL Calcium (8.4-10.2) mg/dL Total Bilirubin (0.2-1.3) mg/dL AST (17-59) U/L ALT (4-49) U/L Alkaline Phosphatase (38-126) U/L Troponin I <0.012 (0.000-0.034) ng/mL Total Protein (6.3-8.2) g/dL Albumin (3.5-5.0) g/dL Urine Color Light Yellow Urine Appearance Clear (Clear) Urine pH 5.5 (5.0-8.0) Ur Specific [place] 1.018 (1.001-1.035) Urine Protein Negative (Negative) Urine Glucose (UA) Negative (Negative) Urine Ketones Negative (Negative) Urine Blood Negative (Negative) Urine Nitrite Negative (Negative) Urine Bilirubin Negative (Negative) Urine Urobilinogen <2.0 (<2.0) mg/dL Ur Leukocyte Esterase Negative (Negative) - EKG Data -: EKG Interpreted by Ca - Radiology Data Radiology results: report reviewed, image reviewed Disposition Clinical Impression: Strain of calf muscle, Leg pain, Chest pain, Anxiety Disposition: HOME SELF-CARE Condition: Good Instructions (If sedation given, give patient instructions): Chest Pain (ED), Leg Pain (ED) Is patient prescribed a controlled substance at d/c from ED?: No When asked, does pt state using other controlled substances?: No Referrals: Lloyd Mayes MD [Primary Care Provider] - 1-2 days Time of Disposition: 14:01
[2023-12-18 11:23] VITALS: RESP 18; TEMP 98.2
[2023-12-18 11:31] LABS: Basophils % (A) 1 %; Eosinophils # (A) 0.2 k/uL (0-0.7); Eosinophils % (A) 3 %; HCT 42.7 % (39.0-53.0); HGB 14.1 gm/dL (13.0-17.5); Lymphocytes # (A) 2.2 k/uL (1.0-4.8); Lymphocytes % (A) 36 %; MCH 29.4 pg (25.0-35.0); MCHC 33.1 g/dL (31.0-37.0); MCV 88.7 fL (80.0-100.0); Mean Platelet Volume 7.1; Monocytes # (A) 0.2 k/uL (0-1.0); Monocytes % (A) 3 %; Neutrophils # (A) 3.3 k/uL (1.3-7.7); Neutrophils % (A) 55 %; Platelet Count 275 k/uL (150-450); RBC 4.81 m/uL (4.30-5.90); RDW 14.4 % (11.5-15.5)
--- NOTE | 2023-12-18 11:40 | US ---
EXAMINATION TYPE: US venous doppler duplex LE RT DATE OF EXAM: 12/18/2023 11:31 AM COMPARISON: 06/16/2020. CLINICAL INDICATION: Male, 38 years old with history of pain, swelling, hx DVT; Pt states right calf pain SIDE PERFORMED: Right TECHNIQUE: The lower extremity deep venous system is examined utilizing real time linear array sonog paul with graded compression, doppler sonography and color-flow sonography. VESSELS IMAGED: Common Femoral Vein Deep Femoral Vein Greater Saphenous Vein * Femoral Vein Popliteal Vein Small Saphenous Vein * Proximal Calf Veins (* superficial vessels) Right Leg: Negative for DVT IMPRESSION: Grayscale, color doppler, spectral doppler imaging performed of the deep veins of the lo wer extremities. There is normal flow, compressibility, vascular waveforms.
[2023-12-18 11:41] LABS: INR 0.9 (<1.2); Partial Thromboplastin Time 24.9 sec (22.0-30.0); Prothrombin Time 10.3 sec (10.0-12.5)
[2023-12-18 11:46] LABS: ALT 120 U/L (4-49); AST 73 U/L (17-59); African American GFR (CKD) >90 (>60 ml/min/1.73 sqM); Albumin 4.6 g/dL (3.5-5.0); Alkaline Phosphatase 99 U/L (38-126); Anion Gap 9 mmol/L; Blood Urea Nitrogen 14 mg/dL (9-20); Calcium 9.6 mg/dL (8.4-10.2); Carbon Dioxide 26 mmol/L (22-30); Chloride 104 mmol/L (98-107); Glucose 132 mg/dL (74-99); Non-African American GFR(CKD) >90 (>60 ml/min/1.73 sqM); Potassium 3.8 mmol/L (3.5-5.1); Sodium 139 mmol/L (137-145); Total Bilirubin 0.7 mg/dL (0.2-1.3); Total Protein 7.3 g/dL (6.3-8.2)
--- NOTE | 2023-12-18 12:14 | XR ---
EXAMINATION TYPE: XR chest 1V portable DATE OF EXAM: 12/18/2023 Comparison: 01/19/2020 Clinical History: 38-year-old male chest pain Findings: The cardiomediastinal silhouette, aorta, and pulmonary vasculature are within normal limits. Lungs and pleural spaces are clear. Impression: No acute cardiopulmonary process.
[2023-12-18 12:39] LABS: Appearance,Urine Clear (Clear); Bilirubin,Urine Negative (Negative); Blood,Urine Negative (Negative); Color,Urine Light Yellow; Glucose,Urine (UA) Negative (Negative); Ketones,Urine Negative (Negative); Leukocyte Esterase,Urine Negative (Negative); Nitrite,Urine Negative (Negative); PH, Urine 5.5 (5.0-8.0); Protein,Urine Negative (Negative); Specific Gravity,Urine 1.018 (1.001-1.035); Urobilinogen,Urine <2.0 mg/dL (<2.0)
[2023-12-18 15:03] VITALS: BP 146/91; PULSE 61
== END 2023-12-18 14:38 | disposition home or self-care (01) ==
LOC: EC 10:51
DX: S86.911A Strain of unspecified muscle(s) and tendon(s) at lower leg level, right leg, initial encounter (principal); R00.1 Bradycardia, unspecified; F41.9 Anxiety disorder, unspecified; I10 Essential (primary) hypertension; Z86.59 Personal history of other mental and behavioral disorders; X50.0XXA Overexertion from strenuous movement or load, initial encounter
CPT/HCPCS: 36415; 71045; 80053; 81003; 84484; 85025; 85610; 85730; 93005; 99284

== ENCOUNTER 2024-04-02 07:12 | Inpatient (IN) | payer OTHER ==
[2024-04-02] MEDS: NITROGLYCERIN SL TABS 0.4 MG TAB SUBLINGUAL STA ×3 (07:28→10:01)
--- NOTE | 2024-04-02 07:28 | ED ---
General Adult HPI - General Chief complaint: Chest Pain Stated complaint: Chest pain Time Seen by Provider: 04/02/24 07:21 Source: patient, RN notes reviewed Mode of arrival: ambulatory Limitations: no limitations - History of Present Illness Initial comments: Patient is a 39-year-old male presenting to the emergency department with concerns with chest discomfort. Onset of symptoms was around an hour ago. Woke up from sleep. Difficult to describe type of discomfort. Discomfort is severe. No associated dyspnea or diaphoresis. Patient has had some nausea and did vomit once. Patient did have similar symptoms a couple days ago. No calf pain. No leg swelling. - Related Data Home Medications Medication Instructions Recorded Confirmed No Known Home Medications 12/18/23 04/02/24 Allergies Allergy/AdvReac Type Severity Reaction Status Date / Time No Known Allergies Allergy Verified 04/02/24 07:24 Review of Systems ROS Statement: Those systems with pertinent positive or pertinent negative responses have been documented in the HPI. ROS Other: All systems not noted in ROS Statement are negative. Constitutional: Denies: fever Eyes: Denies: eye pain ENT: Denies: ear pain Respiratory: Denies: cough Cardiovascular: Reports: as per HPI, chest pain Endocrine: Denies: fatigue Gastrointestinal: Reports: nausea, vomiting. Denies: abdominal pain Genitourinary: Denies: dysuria Musculoskeletal: Denies: back pain Past Medical History Past Medical History: Hypertension Additional Past Medical History / Comment(s): dvt History of Any Multi-Drug Resistant Organisms: None Reported Past Surgical History: Appendectomy Additional Past Surgical History / Comment(s): right shoulder Past Psychological History: Depression Smoking Status: Never smoker Past Alcohol Use History: None Reported Past Drug Use History: None Reported General Exam Limitations: no limitations General appearance: alert, other (Patient does appear uncomfortable) Head exam: Present: normocephalic Eye exam: Present: normal appearance Neck exam: Present: normal inspection Respiratory exam: Present: normal lung sounds bilaterally. Absent: chest wall tenderness Cardiovascular Exam: Present: regular rate, normal rhythm, normal heart sounds Expanded Peripheral pulses: 2+: Radial (R), Radial (L), Dorsalis Pedis (R), Dorsalis Pedis (L) GI/Abdominal exam: Present: soft. Absent: tenderness Extremities exam: Present: normal inspection. Absent: pedal edema, calf tenderness Neurological exam: Present: alert Psychiatric exam: Present: normal affect, normal mood Skin exam: Present: normal color Course Vital Signs 04/02/24 07:14 Temperature 98.3 F Pulse Rate 62 Respiratory 18 Rate Blood Pressure 176/76 O2 Sat by Pulse 100 Oximetry - Reevaluation(s) Reevaluation #1: 04/02/24 07:28 Case was discussed with Dr. Leon who will take patient to the [facility]eral [facility]. EKG Findings - EKG Results: EKG: interpreted by ERMD (ST elevation in leads V2 through V5. aVL also. ST depression in leads III and aVF.), sinus rhythm, normal axis, normal QRS Medical Decision Making - Medical Decision Making Was pt. sent in by a medical professional or institution (, PA, VIDEO EDITING INTERN, urgent care, hospital, or skilled nursing...) When possible be specific @ -No Did you speak to anyone other than the patient for history (EMS, parent, family, police, friend...)? What history was obtained from this source @ - is present and states onset was when he woke an hour prior to arrival Did you review nursing and triage notes (agree or disagree)? Why? @ -I reviewed and agree with nursing and triage notes Were old charts reviewed (outside hosp., previous admission, EMS record, old EKG, old radiological studies, urgent care reports/EKG's, skilled nursing records)? Report findings @ -Previous charts reviewed for past medical history including hypertension Differential Diagnosis (chest pain, altered mental status, abdominal pain women, abdominal pain men, vaginal bleeding, weakness, fever, dyspnea, syncope, headache, dizziness, GI bleed, back pain, seizure, CVA, palpatations, mental health, musculoskeletal)? @ -Differential Chest Pain: Stable Angina, Unstable Angina, STEMI, NSTEMI Aortic Dissection, Pneumothorax, Musculoskeletal, Esophageal Spasm GERD, Cholecystitis, Pancreatitis, Zoster, this is not meant to be an all-inclusive list. EKG interpreted by me (3pts min.). @ -As above X-rays interpreted by me (1pt min.). @ -Chest x-ray shows no acute process. CT interpreted by me (1pt min.). @ -None done U/S interpreted by me (1pt. min.). @ -None done What testing was considered but not performed or refused? (CT, X-rays, U/S, labs)? Why? @ -None What meds were considered but not given or refused? Why? @ -None Did you discuss the management of the patient with other professionals (professionals i.e. , PA, VIDEO EDITING INTERN, lab, RT, psych nurse, social insurance specialist, digital media buyer, teacher, life science technical officer, special education case manager)? Give summary @ -Case was discussed with Dr. Leon who will take patient to the Funeral Home Manager. [facility] [place] physician Dr. Prajapati who will admit covering Dr. Mayes. Was smoking cessation discussed for >3mins.? @ -No Was critical care preformed (if so, how long)? @ -15 minutes critical care time Were there social determinants of health that impacted care today? How? (Homelessness, low income, unemployed, alcoholism, drug addiction, transportation, low edu. Level, literacy, decrease access to med. care, senior care, rehab)? @ -No Was there de-escalation of care discussed even if they declined (Discuss DNR or withdrawal of care, Hospice)? DNR status @ -No What co-morbidities impacted this encounter? (DM, HTN, Smoking, COPD, CAD, Cancer, CVA, ARF, Chemo, Hep., AIDS, mental health diagnosis, sleep apnea, morbid obesity)? @ -Underlying hypertension Was patient admitted / discharged? Hospital course, mention meds given and route, prescriptions, significant lab abnormalities, going to OR and other pertinent info. @ -Patient given aspirin, heparin and nitroglycerin. Patient going to the [facility] and will be admitted following this. Admission orders written. Patient and family updated. Undiagnosed new problem with uncertain prognosis? @ -No Drug Therapy requiring intensive monitoring for toxicity (Heparin, Nitro, Insulin, Cardizem)? @ -No Were any procedures done? @ -No Diagnosis/symptom? @ -STEMI Acute, or Chronic, or Acute on Chronic? @ -Acute Uncomplicated (without systemic symptoms) or Complicated (systemic symptoms)? @ -Default Side effects of treatment? @ -No Exacerbation, Progression, or Severe Exacerbation? @ -No Poses a threat to life or bodily function? How? (Chest pain, [place], MA, pneumonia, PE, COPD, DKA, ARF, appy, cholecystitis, CVA, Diverticulitis, Homicidal, Suicidal, threat to staff... and all critical care pts) @ -Potential threat to cardiac function Critical Care Time Critical Care Time: Yes Total Critical Care Time: 15 Disposition Clinical Impression: ST elevation myocardial infarction (STEMI) Disposition: ADMITTED IP TO THIS HOSP Condition: Critical Is patient prescribed a controlled substance at d/c from ED?: No Time of Disposition: 07:37
[2024-04-02] MEDS ORDERED: HEPARIN SODIUM 1,000 UN/ML (10ML VL) IV PRN (07:31)
[2024-04-02] MEDS: HEPARIN SODIUM 1,000 UN/ML (10ML VL) IV ONE (07:34)
[2024-04-02] MEDS: ASPIRIN 81 MG PO STA (07:35)
--- NOTE | 2024-04-02 07:37 | XR ---
EXAMINATION TYPE: XR chest 1V portable DATE OF EXAM: 04/02/2024 COMPARISON: 12/18/2023 INDICATION: Chest pain TECHNIQUE: Single frontal view of the chest is obtained. FINDINGS: The heart size is normal. The pulmonary vasculature is normal. The lungs are clear. IMPRESSION: 1. No acute pulmonary process.
[2024-04-02 07:41] LABS: Basophils # (A) 0.1 k/uL (0-0.2); Basophils % (A) 1 %; Eosinophils # (A) 0.2 k/uL (0-0.7); Eosinophils % (A) 3 %; HCT 45.8 % (39.0-53.0); HGB 14.8 gm/dL (13.0-17.5); Lymphocytes # (A) 2.3 k/uL (1.0-4.8); Lymphocytes % (A) 27 %; MCH 29.6 pg (25.0-35.0); MCHC 32.2 g/dL (31.0-37.0); MCV 91.8 fL (80.0-100.0); Mean Platelet Volume 7.2; Monocytes # (A) 0.4 k/uL (0-1.0); Monocytes % (A) 5 %; Neutrophils # (A) 5.2 k/uL (1.3-7.7); Neutrophils % (A) 63 %; Platelet Count 290 k/uL (150-450); RBC 4.99 m/uL (4.30-5.90); RDW 13.4 % (11.5-15.5); WBC 8.2 k/uL (3.8-10.6)
[2024-04-02] MEDS: LIDOCAINE 1% INJ 10MG/ML (20 ML MDV) SQ ONE (07:49)
[2024-04-02] MEDS: VERAPAMIL SYRINGE (5 MG/10 ML) INTRAARTER ONE (07:49)
[2024-04-02] MEDS: MIDAZOLAM 2 MG/2 ML VIAL IVP ONE (07:53)
[2024-04-02] MEDS: fentaNYL (PF) 50 MCG/ML 2 ML AMP IVP ONE (07:54)
[2024-04-02] MEDS: SODIUM CHLORIDE 0.9% 1,000 ML IV ONE ×2 (07:54→08:37)
[2024-04-02] MEDS: HEPARIN SODIUM 1,000 UN/ML (10ML VL) IVP ONE (07:54)
[2024-04-02 07:57] LABS: INR 0.9 (<1.2); Partial Thromboplastin Time 23.8 sec (22.0-30.0); Prothrombin Time 10.5 sec (10.0-12.5)
[2024-04-02 08:01] LABS: ALT 40 U/L (4-49); AST 27 U/L (17-59); African American GFR (CKD) >90 (>60 ml/min/1.73 sqM); Albumin 4.7 g/dL (3.5-5.0); Alkaline Phosphatase 81 U/L (38-126); Anion Gap 6 mmol/L; Blood Urea Nitrogen 15 mg/dL (9-20); Calcium 9.3 mg/dL (8.4-10.2); Carbon Dioxide 30 mmol/L (22-30); Chloride 103 mmol/L (98-107); Glucose 116 mg/dL (74-99); Magnesium 1.9 mg/dL (1.6-2.3); Non-African American GFR(CKD) 87 (>60 ml/min/1.73 sqM); Potassium 4.1 mmol/L (3.5-5.1); Sodium 139 mmol/L (137-145); Total Bilirubin 0.6 mg/dL (0.2-1.3); Total Protein 7.7 g/dL (6.3-8.2)
[2024-04-02] MEDS: TICAGRELOR 90 MG TAB PO ONE (08:04)
[2024-04-02] MEDS: IOPAMIDOL-370 100ML BTL INJ ONE ×3 (08:08→08:53)
[2024-04-02] MEDS: HYDROmorphone 0.5 MG/0.5 ML SYRINGE IVP ONE (08:26)
[2024-04-02] MEDS: NITROGLYCERIN 1000MCG/10ML SYRINGE INTRACORON ONE (08:29)
[2024-04-02] MEDS: niCARdipine 25 MG/10 ML VIAL INTRACORON ONE (08:39)
[2024-04-02] MEDS: FUROSEMIDE 10 MG/ML 4 ML VIAL IV ONE (08:45)
[2024-04-02] MEDS ORDERED: ATROPINE SULFATE 0.1 MG/ML 10ML SYRINGE IV PRN (08:54)
[2024-04-02] MEDS ORDERED: ZOLPIDEM 5 MG TAB PO PRN (08:54)
[2024-04-02] MEDS ORDERED: MAG HYDROX/AL HYDROX/SIMETH 30 ML CUP PO PRN (08:54)
[2024-04-02] MEDS ORDERED: RX INFO: IV CONTRAST WAS GIVEN 1 EACH MISC MISCELLANE PRN (08:54)
--- NOTE | 2024-04-02 08:55 | P.CRDCN ---
History of Present Illness Consult date: 04/02/24 Chief complaint: Chest pain History of present illness: The patient is a 39-year-old gentleman who is morbidly obese presented to the emergency department here complaining of chest discomfort. He was in his usual state of health till earlier today which is about an hour earlier when he started experiencing discomfort in the middle of the chest as excruciating kind of discomfort with no radiation into the arms or neck or shoulders or back but it was associated with shortness of breath as well as sweating. No dizziness or lightheadedness and no feeling of heart racing or fluttering and no presyncope or syncope. The EKG showed anterior ST segment elevation myocardial infarction. Emergently he was taken to the cardiac Director Child where he underwent a heart catheterization which revealed occluded proximal left anterior descending artery which is a large-caliber vessel. He underwent successful PCI of the LAD. By the end of the procedure the patient discomfort has improved significantly and the EKG changes also improved significantly. The distal LAD becomes small to medium caliber vessel and does not reach the apex but the RCA is a super dominant RCA and reaches the apex. He also does have large diagonal branch. The patient will be admitted to the intensive care unit. He will be was started on dual antiplatelet therapy along with high intensity statin along with anti- ischemic medications an echocardiogram will be ordered. The patient is not aware of any prior history and never seen a mailing machine helper before. He is morbidly obese. The examination is remarkable for stable vital signs with distant heart sounds and clear breathing sounds bilaterally and no edema was noted Assessment Acute anterior ST ovation myocardial infarction Status post PCI of LAD Morbid obesity Plan Dual antiplatelet therapy High intensity statin Anti-ischemic medications An echocardiogram with Doppler Follow-up with the patient Past Medical History Past Medical History: Hypertension Additional Past Medical History / Comment(s): dvt History of Any Multi-Drug Resistant Organisms: None Reported Past Surgical History: Appendectomy Additional Past Surgical History / Comment(s): right shoulder Past Psychological History: Depression Smoking Status: Never smoker Past Alcohol Use History: None Reported Past Drug Use History: None Reported Medications and Allergies Home Medications Medication Instructions Recorded Confirmed Type No Known Home Medications 12/18/23 04/02/24 History Allergies Allergy/AdvReac Type Severity Reaction Status Date / Time No Known Allergies Allergy Verified 04/02/24 07:24 Physical Exam Vitals: Vital Signs Temp Pulse Resp BP Pulse Ox 04/02/24 07:57 154/101 04/02/24 07:14 98.3 F 62 18 176/76 100 Intake and Output 04/01/24 04/02/24 04/02/24 22:59 06:59 14:59 Intake Total 500 Balance 500 Intake: IV 500 Other: Weight 127.006 kg Results 04/02/24 07:30 04/02/24 07:30 Cardiac Enzymes 04/02/24 04/02/24 Range/Units 07:30 07:30 AST 27 (17-59) U/L Troponin I 0.090 H* (0.000-0.034) ng/mL Coagulation 04/02/24 Range/Units 07:30 PT 10.5 (10.0-12.5) sec APTT 23.8 (22.0-30.0) sec CBC 04/02/24 Range/Units 07:30 WBC 8.2 (3.8-10.6) k/uL RBC 4.99 (4.30-5.90) m/uL Hgb 14.8 (13.0-17.5) gm/dL Hct 45.8 (39.0-53.0) % Plt Count 290 (150-450) k/uL Comprehensive Metabolic Panel 04/02/24 Range/Units 07:30 Sodium 139 (137-145) mmol/L Potassium 4.1 (3.5-5.1) mmol/L Chloride 103 (98-107) mmol/L Carbon Dioxide 30 (22-30) mmol/L BUN 15 (9-20) mg/dL Creatinine 1.07 (0.66-1.25) mg/dL Glucose 116 H (74-99) mg/dL Calcium 9.3 (8.4-10.2) mg/dL AST 27 (17-59) U/L ALT 40 (4-49) U/L Alkaline Phosphatase 81 (38-126) U/L Total Protein 7.7 (6.3-8.2) g/dL Albumin 4.7 (3.5-5.0) g/dL Current Medications Generic Name Dose Route Start Last Admin Trade Name Freq PRN Reason Stop Dose Admin Aspirin 325 mg 04/03/24 09:00 Aspirin 325 Mg Tab PO DAILY [facility] Heparin Sodium (Porcine) 0 unit 04/02/24 07:31 Heparin Sodium 1,000 Un/Ml (10ml Vl) IV PER PROTOCOL PRN Low PTT Protocol Heparin Sodium/Sodium Chloride 250 mls @ 10 mls/hr 04/02/24 07:45 25,000 unit/ Sodium Chloride IV .Q24H [facility] Protocol 7.874 UNITS/KG/HR Nitroglycerin 0.4 mg 04/02/24 07:31 Nitroglycerin Sl Tabs 0.4 Mg Tab SUBLINGUAL Q5M PRN Chest Pain Intake and Output 04/01/24 04/02/24 04/02/24 22:59 06:59 14:59 Intake Total 500 Balance 500 Intake: IV 500 Other: Weight 127.006 kg Patient Weight 04/03/24 06:59 Weight 127.006 kg 04/02/24 07:30 04/02/24 07:30
--- NOTE | 2024-04-02 09:00 | P.PCN ---
Date of Procedure: 04/02/24 Operative Findings: CARDIAC CATHETERIZATION AND PERCUTANEOUS CORONARY INTERVENTION PERFORMING PHYSICIAN: Lucho Salazar MD, VI PROCEDURE PERFORMED: 1. Selective right and left coronary angiogram 2. Left heart catheterization 3. Successful stenting of proximal LAD using 4.0 x 28 Xience JUDD with an exc ellent angiographic results with adjunctive use of intravascular imaging 4. Selective right common femoral artery angiogram INDICATION: Acute anterior ST elevation myocardial infarction COMPLICATION: None APPROACH: Right radial artery and right common femoral artery LEVEL OF SEDATION: Moderate with the sedation time off 64 minutes PROCEDURE DESCRIPTION: After obtaining informed consent the patient was brought to the cardiac Farm Implement Engine Mechanic. Subsequently the right radial artery was cannulated using micropuncture technique and the micropuncture wire passed easily then I placed a 6 Israeli sheath. Selective right coronary angiogram was performed using JR4 catheter. Attempting accessing the left coronary system using multiple guides was unsuccessful in spite of using JL 3.5 and JL 3 and CLS guidance. The patient's anatomy was extremely challenging and for that reason we decided to go from the groin. The right common femoral artery was cannulated using micropuncture technique the micropuncture wire passed easily then I placed a 6 Israeli sheath at the right common femoral artery. I did engage the left coronary system/left main using JL 4 guiding catheter. Selective left coronary angiogram was performed and subsequently I did intervene on the LAD. I crossed the acute total occlusion of the LAD using a whisper wire. Subsequently I did balloon angioplasty using 2.5 mm balloon and then I did intravascular ultrasound which showed a soft plaque in the LAD with a diameter around 4 mm. I deployed a 4.0 x 28 mm stent which was positioned under fluoroscopy guidance and deployed under fluoroscopy guidance. Postdilatation was performed after intravascular ultrasound was performed again using 5 mm noncompliant balloon. Final angiogram showed good angiographic results. The distal LAD becomes a medium caliber vessel does not reach the apex. SELECTIVE CORONARY ANGIOGRAM: The right coronary artery: Large-caliber vessel and super dominant vessel and appears to be angiographical ly normal Left main: Is angiographically normal The left circumflex: Large-caliber vessel and nondominant vessel and also appears to be angiographically normal with no high-grade stenosis identified . The LCx gives rise into the first and second obtuse marginal branches and both appear to be angiographically normal The left anterior descending artery: Large-caliber vessel. The LAD proximally is occluded. The mid and distal LAD becomes a medium caliber vessel only. HEMODYNAMICS: LVEDP was 23 mmHg with no significant gradient across aortic valve CONCLUSION: Acute total occlusion of the proximal LAD. I performed successful PCI of the LAD as described above Elevated left-sided filling pressure POSTPROCEDURE MANAGEMENT: 1. Dual antiplatelet therapy using aspirin and Brilinta for 12 month 2. Aggressive cholesterol control 3. Follow-up with the patient
[2024-04-02 09:18] LABS: Glucose,Whole Blood 142 mg/dL (70-110)
[2024-04-02] MEDS: HEPARIN SOD,PORK IN 0.45% NACL 25,000 UNIT in 0.45% NACL 1 250ML.BAG IV SCH (10:02)
[2024-04-02] MEDS: METOPROLOL TARTRATE 25 MG TAB PO SCH (10:11)
[2024-04-02] MEDS: SODIUM CHLORIDE 0.9% 1,000 ML in EMPTY BAG 1 BAG IV SCH (10:11)
[2024-04-02] MEDS: MORPHINE SULFATE 2 MG/ML SYRINGE IVP PRN (12:11)
[2024-04-02] MEDS: NITROGLYCERIN SL TABS 0.4 MG TAB SUBLINGUAL PRN (13:03)
[2024-04-02 14:13] VITALS: BMI 39.0
--- NOTE | 2024-04-02 15:42 | P.HPIM ---
History of Present Illness H&P Date: 04/02/24 Chief Complaint: chest pain Patient is a 39-year-old male with a past medical history of obesity who presents to the ED with 10 out of 10 pressure-like chest pain that is subs ternal. Patient states that the pain woke him up from his sleep today. He states that he had similar pain about 3 days ago which resolved with aspirin. He states that this time he also took aspirin which did not take the pain away so he decided to come to the ED. In the ED EKG showed anterior ST elevations. Patient was emergently taken for heart cath. Patient had PCI to the LAD. Patient was seen after his heart cath. He states that currently his pain is about a 7 out of 10. He states that the morphine did not help with the pain. He states that the nitro seems to be taking the edge off. ROS: 10 ROS reviewed and are negative except as noted in HPI Physical exam General: [Alert and oriented, well nourished, no acute distress]. Eye: [PERRL, EOMI, normal conjunctiva]. HENT: [Normocephalic, clear tympanic membranes, normal hearing, moist oral mucosa, no scleral icterus, no sinus tenderness]. Neck: [Supple, non-tender, no carotid bruits, no JVD, no lymphadenopathy]. Lungs: [Clear to auscultation and percussion, non-labored respiration]. Heart: [Normal rate, regular rhythm, no murmur, gallop or edema]. Abdomen: [Soft, non-tender, non-distended, normal bowel sounds, no masses]. Musculoskeletal: [Normal range of motion and strength, no tenderness or swelling]. Skin: [Skin is warm, dry and pink, no rashes or lesions]. Neurologic: [Awake, alert, and oriented X3, CN II-XII intact]. Psychiatric: [Cooperative, appropriate mood and affect]. Assessment and plan ST elevation DE First troponin 0.090 and second troponin 42.4 Status post PCI to LAD Echocardiogram ordered Patient started on metoprolol 25 mg p.o. twice daily Patient started on aspirin 81 mg p.o. daily and Brilinta 90 mg p.o. twice daily Patient started on atorvastatin 80 mg at bedtime cardiology following IV morphine 4 mg every 6 hours as needed for pain Sublingual nitro as needed for pain Check lipid panel Check A1c Obesity Encourage weight loss Full code Past Medical History Past Medical History: Hypertension Additional Past Medical History / Comment(s): dvt- right leg History of Any Multi-Drug Resistant Organisms: None Reported Past Surgical History: Appendectomy Additional Past Surgical History / Comment(s): right shoulder Additional Past Anesthesia/Blood Transfusion Reaction / Comment(s): difficulty coming out of anesthesia after shoulder surgery Smoking Status: Never smoker Medications and Allergies Home Medications Medication Instructions Recorded Confirmed Type No Known Home Medications 12/18/23 04/02/24 History Allergies Allergy/AdvReac Type Severity Reaction Status Date / Time No Known Allergies Allergy Verified 04/02/24 07:24 Physical Exam Osteopathic Statement: *. No significant issues noted on an osteopathic structural exam other than those noted in the History and Physical/Consult. Vitals: Vital Signs Temp Pulse Resp BP Pulse Ox 04/02/24 15:00 57 L 13 128/82 97 04/02/24 14:30 57 L 20 97 04/02/24 14:00 98.0 F 58 L 13 120/71 98 04/02/24 13:30 62 12 97 04/02/24 13:00 68 12 141/87 100 04/02/24 12:30 67 19 97 04/02/24 12:00 54 L 12 136/88 100 04/02/24 11:30 56 L 12 97 04/02/24 11:00 64 23 132/79 96 04/02/24 10:45 67 18 98 04/02/24 10:30 68 12 99 04/02/24 10:15 70 18 153/99 97 04/02/24 10:00 70 13 135/90 99 04/02/24 09:45 67 14 99 04/02/24 09:30 73 24 147/89 96 04/02/24 09:15 97.5 F L 52 L 13 144/88 04/02/24 07:57 154/101 04/02/24 07:14 98.3 F 62 18 176/76 100 Intake and Output 04/02/24 04/02/24 04/02/24 06:59 14:59 22:59 Intake Total 1175 75 Output Total 1800 0 Balance -625 75 Intake: IV 975 75 Sodium Chloride 0.9% 1, 375 75 000 ml In Empty Bag 1 bag @ 75 mls/hr IV .[id number] [facility] Rx#:[id number] Oral 200 Output: Urine 1800 0 Other: Voiding Method Urinal # Voids 1 Weight 127.006 kg Results CBC & Chem 7: 04/02/24 07:30 04/02/24 07:30 Labs: Abnormal Lab Results - Last 24 Hours (Table) 04/02/24 04/02/24 04/02/24 Range/Units 07:30 07:30 09:17 Glucose 116 H (74-99) mg/dL POC Glucose (mg/dL) 142 H (70-110) mg/dL Troponin I 0.090 H* (0.000-0.034) ng/mL 04/02/24 Range/Units 11:53 Glucose (74-99) mg/dL POC Glucose (mg/dL) (70-110) mg/dL Troponin I 42.400 H* (0.000-0.034) ng/mL
[2024-04-02] MEDS: MORPHINE SULFATE 4 MG/ML SYRINGE IVP PRN (18:07)
[2024-04-02] MEDS: TICAGRELOR 90 MG TAB PO SCH (21:19)
[2024-04-02] MEDS: ATORVASTATIN 80 MG TAB PO SCH (21:19)
[2024-04-03 06:20] LABS: Basophils % (A) 0 %; Eosinophils # (A) 0.1 k/uL (0-0.7); Eosinophils % (A) 1 %; HCT 43.7 % (39.0-53.0); HGB 13.7 gm/dL (13.0-17.5); Lymphocytes # (A) 1.6 k/uL (1.0-4.8); Lymphocytes % (A) 16 %; MCH 28.9 pg (25.0-35.0); MCHC 31.4 g/dL (31.0-37.0); MCV 92.3 fL (80.0-100.0); Monocytes # (A) 0.8 k/uL (0-1.0); Monocytes % (A) 8 %; Neutrophils # (A) 7.1 k/uL (1.3-7.7); Neutrophils % (A) 73 %; Platelet Count 253 k/uL (150-450); RBC 4.74 m/uL (4.30-5.90); RDW 13.5 % (11.5-15.5); WBC 9.8 k/uL (3.8-10.6)
[2024-04-03 06:33] LABS: Prothrombin Time 10.7 sec (10.0-12.5)
[2024-04-03 07:05] LABS: African American GFR (CKD) >90 (>60 ml/min/1.73 sqM); Anion Gap 6 mmol/L; Blood Urea Nitrogen 10 mg/dL (9-20); Calcium 9.4 mg/dL (8.4-10.2); Carbon Dioxide 26 mmol/L (22-30); Chloride 103 mmol/L (98-107); Glucose 105 mg/dL (74-99); Non-African American GFR(CKD) >90 (>60 ml/min/1.73 sqM); Sodium 135 mmol/L (137-145)
[2024-04-03] MEDS ORDERED: ASPIRIN 325 MG TAB PO SCH (09:00)
[2024-04-03] MEDS: ASPIRIN 81 MG PO SCH (09:15)
[2024-04-03] MEDS: ACETAMINOPHEN TAB 325 MG TAB PO PRN (09:31)
[2024-04-03 09:37] LABS: Chol/HDL Ratio 6.97 Ratio; LDL Cholesterol,Calculated 144.1 mg/dL (0.0-131.0)
[2024-04-03] MEDS: NITROGLYCERIN OINT 1 INCH/GM PACKET TOPICAL SCH (11:34)
--- NOTE | 2024-04-03 11:52 | P.PN ---
Subjective Progress Note Date: 04/03/24 This is Devante Haley NP, I'm dictating on behalf of Dr. Rogers's H&P and A&P. Patient was interviewed and examined. Patient is a pleasant 39-year-old male who presented to the hospital with complaints of chest pain and was found to have a STEMI. Patient underwent PCI with successful stenting of an occluded proximal LAD. Patient is doing well this morning. He reports some chest pain today at 3/10. Otherwise he states he is doing okay. He denies shortness of breath, heart palpitations, dizziness, syncope. GENERAL: Well-appearing, well-nourished and in no acute distress. NECK: Supple without JVD or thyromegaly. LUNGS: Breath sounds clear to auscultation bilaterally. Respiration equal and u nlabored. No wheezes, rales or rhonchi. HEART: Regular rate and rhythm without murmurs, rubs or gallops. S1 and S2 heard. EXTREMITIES: Normal range of motion, no edema. No clubbing or cyanosis. Pe ripheral pulses intact and strong. VITALS: Temp 97.8, pulse 71, respirations 24, blood pressure 124/84, O2 saturation 98% on room air TELEMETRY: Sinus mechanism LABS: White count 9.8, hemoglobin 13.7, platelets 253, sodium 135, potassium 4.0, BUN 10, creatinine 0.9, hemoglobin A1c 5.7, calcium 9.4, triglycerides 166, cholesterol 207, LDL 144.1, HDL 29.7 IMPRESSION: 1. Acute anterior ST elevation myocardial infarction 2. Status post PCI of LAD 3. Morbid obesity 4. Hypercholesterolemia PLAN: Continue Nitropaste 1/2 inch for remaining chest pain. Increase metoprolol to 50 mg twice daily. Continue high-dose medical therapy. Patient may be transferred to the cardiac floor. Further recommendations based on patient's clinical course. Objective - Vital Signs Vital signs: Vital Signs Temp 97.8 F 04/03/24 08:00 Pulse 79 04/03/24 10:00 Resp 28 H 04/03/24 10:00 BP 136/83 04/03/24 10:00 Pulse Ox 96 04/03/24 10:00 FiO2 Intake & Output 04/02/24 04/03/24 04/03/24 18:59 06:59 18:59 Intake Total 1475 400 Output Total 2250 2375 0 Balance -775 -1974 0 Weight 127.006 kg 127 kg Intake: IV 1275 150 Sodium Chloride 0.9% 1, 675 150 000 ml In Empty Bag 1 bag @ 75 mls/hr IV .[id number] [facility] Rx#:[id number] Oral 200 250 Output: Urine 2250 2375 0 Other: Voiding Method Urinal Urinal Urinal # Voids 1 # Bowel Movements 1 - Labs CBC & Chem 7: 04/03/24 05:42 04/03/24 05:42 Labs: Abnormal Lab Results - Last 24 Hours (Table) 04/02/24 04/02/24 04/03/24 Range/Units 11:53 17:08 05:42 Sodium (137-145) mmol/L Glucose (74-99) mg/dL Troponin I 42.400 H* 40.800 H* (0.000-0.034) ng/mL Triglycerides 166.00 H (0.00-149.00) mg/dL Cholesterol 207.00 H (0.00-200.00) mg/dL LDL Cholesterol, Calc 144.1 H (0.0-131.0) mg/dL HDL Cholesterol 29.70 L (40.00-60.00) mg/dL 04/03/24 Range/Units 05:42 Sodium 135 L (137-145) mmol/L Glucose 105 H (74-99) mg/dL Troponin I (0.000-0.034) ng/mL Triglycerides (0.00-149.00) mg/dL Cholesterol (0.00-200.00) mg/dL LDL Cholesterol, Calc (0.0-131.0) mg/dL HDL Cholesterol (40.00-60.00) mg/dL
--- NOTE | 2024-04-03 12:59 | CA ---
Transthoracic Echo Report Name: Chin Richey Age: 39 Gender: M : 1985 Exam Date: 04/03/2024 08:53 Exam Location: [place] [facility] Ht (in): 71 Wt (lb): 280 Ordering Physician: Lucho Salazar MD ([id number]) Attending/Referring Phys: Securities Sales Associate Stephanie Higuera RDCS Procedure CPT: Indications: lvef Cardiac Hx: Technical Quality: Fair Contrast 1: Definity Total Dose (mL): 2 Contrast 2: Total Dose (mL): MEASUREMENTS (Male / Female) Normal Values 2D ECHO LV Diastolic Diameter PLAX 4.7 cm 4.2 - 5.9 / 3.9 - 5.3 cm LV Systolic Diameter PLAX 3.6 cm IVS Diastolic Thickness 1.3 cm 0.6 - 1.0 / 0.6 - 0.9 cm LVPW Diastolic Thickness 1.1 cm 0.6 - 1.0 / 0.6 - 0.9 cm LV Relative Wall Thickness 0.5 RV Internal Dim ED PLAX 2.0 cm LA Systolic Diameter LX 3.2 cm 3.0 - 4.0 / 2.7 - 3.8 cm LV Diastolic Volume MOD BP 122.6 cm??? 67 - 155 / 56 - 104 cm??? LV Systolic Volume MOD BP 71.4 cm??? 22 - 58 / 19 - 49 cm??? LV Ejection Fraction MOD BP 41.7 % >= 55 % LV Cardiac Index MOD BP 1391.0 cm???/min???m??? LV Diastolic Volume MOD 4C 162.9 cm??? LV Systolic Volume MOD 4C 108.3 cm??? LV Ejection Fraction MOD 4C 33.5 % LV Cardiac Index MOD 4C 1485.0 cm???/min???m??? LV Diastolic Length 4C 8.4 cm LV Systolic Length 4C 8.6 cm LV Diastolic Volume MOD 2C 88.4 cm??? LV Systolic Volume MOD 2C 51.1 cm??? LV Ejection Fraction MOD 2C 42.2 % LV Cardiac Index MOD 2C 1015.1 cm???/min???m??? LV Diastolic Length 2C 7.9 cm LV Systolic Length 2C 8.3 cm LA Volume 74.4 cm??? 18 - 58 / 22 - 52 cm??? LA Volume Index 28.9 cm???/m??? 16 - 28 cm???/m??? M-MODE Aortic Root Diameter MM 3.9 cm LA Systolic Diameter MM 2.9 cm LA Ao Ratio MM 0.7 AV Cusp Separation MM 2.4 cm DOPPLER MV Area PHT 2.8 cm??? Mitral E Point Velocity 55.4 cm/s Mitral A Point Velocity 62.8 cm/s Mitral E to A Ratio 0.9 MV Deceleration Time 271.9 ms FINDINGS Left Ventricle Left ventricular ejection fraction is estimated at 35-40 %. Mildly increased septal wall thickness. Moderately increased left ventricular systolic volume. Moderately decreased left ventricular ejection fraction. Victor hypokinetic. Hypokinetic septum. Right Ventricle Right ventricle not well visualized. Right ventricular systolic pressure within normal limits. Right Atrium Normal right atrial size. Left Atrium Moderately increased left atrial volume. Mitral Valve Structurally normal mitral valve. Trace mitral regurgitation. Aortic Valve Trileaflet aortic valve. No aortic valve stenosis or regurgitation. Tricuspid Valve Structurally normal tricuspid valve. Trace tricuspid regurgitation. Pulmonic Valve Structurally normal pulmonic valve. No pulmonic stenosis. No pulmonic regurgitation. Pericardium No pericardial or pleural effusion. Aorta Mildly dilated aortic annulus. CONCLUSIONS Large anterior, distal lateral, apical and septal hypokinesis, severe Severe LV dysfunction Previewed by: Dr. Michi Rogers MD (Electronically Signed) Final Date: 03 April 2024 12:58
--- NOTE | 2024-04-03 15:34 | P.PN ---
Subjective Progress Note Date: 04/03/24 (delayed charting seen at 1100) Patient is a 39-year-old male with hypertension, prior DVT, and obesity who presented to the hospital with complaints of chest pain. Patient was subsequently found to have an ST segment elevated myocardial infarction. He was immediately taken to the [facility] and underwent stenting of the LAD. Patient was subsequently admitted to the intensive care unit. Patient seen and examined at bedside. Patient is much better than yesterday. Denies any lightheadedness, dizziness, shortness of breath. We had a discussion about his cholesterol and diabetes results. Patient acknowledges understanding. Vital signs reviewed General: Nontoxic, no distress, appears at stated age Cardiovascular: S1S2 reg, no murmur Lungs: CTA bilateral, no rhonchi, no rales, no accessory muscle use Abdominal: Soft, nontender to palpation, no guarding Ext: No gross muscle atrophy, no edema b/l lower extremities, no contractures Neuro: CN II-XI grossly intact, no focal neuro deficits Psych: Alert, oriented, appropriate affect Assessment/Plan: ST segment elevated myocardial infarction -Cardiology note reviewed: Continue Nitropaste remaining chest pain, increase metoprolol to 50 mg twice daily, can be transferred to the cardiac floor -Aspirin 81 mg daily, Ticagrelor 90 mg twice daily, Lopressor 50 mg twice daily - tele - await echo Dyslipidemia Prediabetes -Lipitor 80 mg at night -Follow blood sugars -Had a danette discussion with patient that he needs to follow his A1c again in 6 months to ensure that it stays below 6.5. Patient is understanding of this Imaging: None Data Review: Labs reviewed from today include CBC and basic metabolic profile which are unremarkable. A1c slightly elevated at 5.7. Cholesterol significantly elevated LDL of 144. DVT prophylaxis: SCDs Anticipated discharge date: 24 to [address]: Home This dictation was prepared using [employer] voice recognition software. Though every attempt is made to correct errors during dictation some may still exist. Objective - Vital Signs Vital signs: Vital Signs Temp 98.1 F 04/03/24 12:00 Pulse 75 04/03/24 12:00 Resp 18 04/03/24 12:00 BP 101/78 04/03/24 12:00 Pulse Ox 97 04/03/24 12:00 FiO2 Intake & Output 04/02/24 04/03/24 04/03/24 18:59 06:59 18:59 Intake Total 1475 400 Output Total 2250 2375 600 Balance - Weight 127.006 kg 127 kg Intake: IV 1275 150 Sodium Chloride 0.9% 1, 675 150 000 ml In Empty Bag 1 bag @ 75 mls/hr IV .[id number] TIMOTHY Rx#:[id number] Oral 200 250 Output: Urine 2250 2375 600 Other: Voiding Method Urinal Urinal Urinal # Voids 1 # Bowel Movements 1 - Labs CBC & Chem 7: 04/03/24 05:42 04/03/24 05:42 Labs: Abnormal Lab Results - Last 24 Hours (Table) 04/02/24 04/03/24 04/03/24 Range/Units 17:08 05:42 05:42 Sodium 135 L (137-145) mmol/L Glucose 105 H (74-99) mg/dL Troponin I 40.800 H* (0.000-0.034) ng/mL Triglycerides 166.00 H (0.00-149.00) mg/dL Cholesterol 207.00 H (0.00-200.00) mg/dL LDL Cholesterol, Calc 144.1 H (0.0-131.0) mg/dL HDL Cholesterol 29.70 L (40.00-60.00) mg/dL
[2024-04-03] MEDS: METOPROLOL TARTRATE 50 MG TAB PO SCH (21:10)
[2024-04-04] MEDS: DAPAGLIFLOZIN PROPANEDIOL 10 MG TABLET PO SCH (08:58)
[2024-04-04] MEDS: LOSARTAN 25 MG TAB PO SCH (08:58)
[2024-04-04 10:56] VITALS: PULSE 76; RESP 18
[2024-04-04] MEDS: SPIRONOLACTONE 25 MG TAB PO SCH (11:33)
[2024-04-04] MEDS: EZETIMIBE 10 MG TAB PO SCH (11:34)
[2024-04-04] MEDS: METOPROLOL TARTRATE 25 MG TAB PO STA (11:34)
--- NOTE | 2024-04-04 11:56 | P.PN ---
Subjective Progress Note Date: 04/04/24 This is Devante Haley NP, I'm dictating on behalf of Dr. Rogers's H&P and A&P. Patient was interviewed and examined. Patient is a pleasant 39-year-old male who presented to the hospital with a S LOYDA, patient underwent PCI with successful stenting of an occluded proximal LAD. Patient reports that he is doing well today. He is no longer complaining of any chest pain. Patient reports he has been walking in the hallway without incident. We had the patient walk the halls briskly while watching his telemetry for any evidence of nonsustained V. tach. None was noted. He is denying shortness of breath and heart palpitations. GENERAL: Well-appearing, well-nourished and in no acute distress. NECK: Supple without JVD or thyromegaly. LUNGS: Breath sounds clear to auscultation bilaterally. Respiration equal and unlabored. No wheezes, rales or rhonchi. HEART: Regular rate and rhythm without murmurs, rubs or gallops. S1 and S2 heard. EXTREMITIES: Normal range of motion, no edema. No clubbing or cyanosis. Peripheral pulses intact and strong. VITALS: Temp 98.3, pulse 96, respirations 16, blood pressure 122/78, O2 saturation 98% on room air TELEMETRY: Sinus mechanism LABS: No new labs since yesterday. IMPRESSION: 1. Acute anterior ST elevation myocardial infarction 2. Status post PCI of LAD 3. Morbid obesity 4. Hypercholesterolemia PLAN: Discontinue Nitropaste. Increase metoprolol to 75 mg twice daily. Give a one-time 25 mg dose now. Start spironolactone 12.5 mg daily. Start Zetia 10 mg daily. If patient remains stable, he can be discharged this evening. Objective - Vital Signs Vital signs: Vital Signs Temp 98.3 F 04/04/24 08:56 Pulse 96 04/04/24 08:56 Resp 16 04/04/24 08:56 BP 123/78 04/04/24 08:56 Pulse Ox 96 04/04/24 09:26 FiO2 Intake & Output 04/03/24 04/04/24 04/04/24 18:59 06:59 18:59 Intake Total 240 128 Output Total 600 600 Balance -600 240 -472 Intake: IV 10 Invasive Line 1 10 Oral 240 118 Output: Urine 600 600 Other: Voiding Method Urinal Toilet Toilet # Voids 1 - Labs CBC & Chem 7: 04/03/24 05:42 04/03/24 05:42
--- NOTE | 2024-04-04 16:07 | P.DS ---
Providers Date of admission: 04/02/24 07:31 Expected date of discharge: 04/04/24 Attending physician: Ananya Mata DO Consults: 04/02/24 07:31 Consult Physician Urgent Consulting Provider: Lucho Salazar Consult Reason/Comments: stemi Do you want consulting provider notified?: Already Contacted 04/02/24 08:54 Consult Physician Routine Consulting Provider: [facility] Consult Reason/Comments: Post Interventional Patient Do you want consulting provider notified?: Already Contacted Primary care physician: Lloyd Mayes Hospital Course: Discharge Diagnosis: ST segment elevated myocardial infarction Ischemic cardiomyopathy with EF 35-40% Dyslipidemia Prediabetes Class II obesity Hospital Course: Patient is a 39-year-old male with hypertension, prior DVT, and obesity who presented to the hospital with complaints of chest pain. Patient was subsequently found to have an ST segment elevated myocardial infarction. He was immediately taken to the [facility] and underwent stenting of the LAD. Patient was subsequently admitted to the intensive care unit. He did well postoperatively. Echocardiogram demonstrated ejection fraction of 35 to 40% with hypokinesis. He did not have any signs of arrhythmia. His blood pressure remains well. He initially was tachycardic but this improved with increased dosing of metoprolol. He was doing well determined stable for discharge home. Follow-up: Patient will follow-up with Dr. Mayes in 1 to 2 days, Dr. Leon next week. New medications include Aldactone, Brilinta, Jardiance, aspirin, Cozaar, Lipitor, Lopressor, and Zetia. BMP in 3 days to follow potassium and cr levels. Patient seen and examined at bedside. Doing well. No chest pain or shortness of breath. Vital signs reviewed and stable. General: Nontoxic, no distress, appears at stated age Cardiovascular: S1S2 reg, no murmur, positive posterior tibial pulse bilateral, Lungs: CTA bilateral, no rhonchi, no rales, no accessory muscle use Abdominal: Soft, nontender to palpation, no guarding, no appreciable organomegaly Ext: No gross muscle atrophy, no edema b/l lower extremities, no contractures Neuro: CN II-XI grossly intact, no focal neuro deficits Psych: Alert, oriented, appropriate affect A total of 42 minutes of time were spent preparing this complex discharge summary. Patient was discharged on 04/04/2024. This dictation was prepared using [employer] voice recognition software. Though every attempt is made to correct errors during dictation some may still exist. Patient Condition at Discharge: Stable Plan - Discharge Summary New Discharge Prescriptions: New Spironolactone [Aldactone] 12.5 mg PO DAILY #30 tab Ticagrelor [Brilinta] 90 mg PO BID #60 tab Empagliflozin [Jardiance] 25 mg PO DAILY #30 tab Aspirin 81 mg PO DAILY #30 tab Losartan [Cozaar] 12.5 mg PO BID #30 tab Atorvastatin [Lipitor] 80 mg PO HS #30 tab Metoprolol Tartrate [Lopressor] 75 mg PO BID #180 tab Ezetimibe [Zetia] 10 mg PO DAILY #30 tab Discharge Medication List Aspirin 81 mg PO DAILY #30 tab 04/04/24 [Rx] Atorvastatin [Lipitor] 80 mg PO HS #30 tab 04/04/24 [Rx] Empagliflozin [Jardiance] 25 mg PO DAILY #30 tab 04/04/24 [Rx] Ezetimibe [Zetia] 10 mg PO DAILY #30 tab 04/04/24 [Rx] Losartan [Cozaar] 12.5 mg PO BID #30 tab 04/04/24 [Rx] Metoprolol Tartrate [Lopressor] 75 mg PO BID #180 tab 04/04/24 [Rx] Spironolactone [Aldactone] 12.5 mg PO DAILY #30 tab 04/04/24 [Rx] Ticagrelor [Brilinta] 90 mg PO BID #60 tab 04/04/24 [Rx] Follow up Appointment(s)/Referral(s): Lucho Salazar MD [STAFF PHYSICIAN] - 1 Week (Please call Friday to make a post hospital follow up appointment. Notify staff that you had a "STEMI". [phone] is the back offices-this is easier to get through for appointments.) Evens Mayes MD [STAFF PHYSICIAN] - 1-2 days (Please call to make a "post hospital" follow up appointment. Friday when offices are open.) Ambulatory/Diagnostic Orders: Basic Metabolic Panel [LAB.AMB] Time Frame: 3 Days, Location: None Selected Patient Instructions/Handouts: Heart Attack (DC), Heart Failure (DC), Safe Use of Antiplatelet Medication (DC), After Radial Heart Catheterization (GEN) Activity/Diet/Wound Care/Special Instructions: CARDIAC CATH Support your puncture site by applying firm, steady pressure whenever you cough, laugh, sneeze or bear down to have a bowel movement (2-day restriction). Watch for any excessive bruising, active bleeding, a firm knot forming under your skin, extreme tenderness and signs of infection (redness, swelling, fever). Shower daily, do not soak puncture in a tub bath, jacuzzi, pool, morales etc. for 1 week. This is to prevent risk of infection. Drink plenty of fluids the day of and day after your procedure to flush contrast dye out of your kidneys. Take all medications as directed. Never stop any new medication without your physicians OK. No driving for 2 days after procedure. 5- pound weight lifting restriction for 1 week. Low sodium/low fat diet. Activity limited until follow up appointment with your pm head cook. Repeat diabetes check (A1C) in 6 months- currently 5.7 In case of any problems, please call [facility] J[facility] @ [phone]. Just some important facts for you to know after your stent placement Aspirin as anti-platelet therapy - Aspirin lessens the chance of heart attack and stroke. It helps prevent blood clots from forming, allowing the blood to flow more easily. Each day, you will take one 81 mg (non-enteric coated) tablet daily. Do not stop unless instructed by your doctor. Anti-platelet Therapy. -In addition to aspirin, you will take one additional anti-platelet medication daily. This will help prevent a clot from forming in your stent: Ticagreler (Lisa llinta) -You will need to take your anti-platelet medicine every day for 12 months -Please consult your heart doctor before you stop this medicine. -They may want you to continue for a longer period of time. Statins -A statin medication lowers cholesterol levels in the blood. This helps slow the progression of heart disease. - Please take your statin medication as prescribed by your doctor. -You may be taking one of the following statins: Atorvastatin (Lipitor) and Ezetmibe (Zetia) Beta blockers -Your Medication: Metoprolol Is a medication that protects your heart from stress and can prevent future heart attacks. It can slow your heart rate. It can take weeks for your body to get used to a beta kendall. The dose may need to be changed a few times as your body adjusts Angiotensin receptor kendall (ARB) -Your medication: Losartan is an angiotensin receptor kendall used to reduce cardiovascular events and decrease the risk of developing diabetes, these medications are also known to prevent left ventricular remodeling after you have suffered a myocardial infarction. Diuretics Spiironolactone (Aldactone) This medication is a diuretic, it is used to lower blood pressure and treats/prevents fluid retention. This medication is used after a heart attack m prevent left ventricular fibrosis and remodeling. SGLT2 Sodium-glucose co-transporter empagliflozin (Jardiance) -- DO NOT FILL IF TO EXPENSIVE is used after a heart attack to reduce the risk of cardiovascular . This medication also assists with preventing and delaying cardiorenal disease. This medication is also used in treatment of Do not stop taking these medicines without talking to your doctor. -Take all other medicines as directed by your doctor. Do not take any extra aspirin or ibuprofen. They can increase your risk of bleeding. Many [id number] drugs contain aspirin. If you are unsure about what the drug contains, check with your pharmacist before taking it. -For mild discomfort, you may take plain Tylenol (acetaminophen). Follow dose directions, but do not take more than 4,000 mg of acetaminophen in 24 hours. Contact your doctor right away or go to the nearest hospital Emergency Room if you have: -Severe angina or chest pain. (This may be a sign of a problem with your stent.) -Excessive bruising, blood in urine/stool or black tarry stools. CHF Weigh yourself every morning after you urinate. If you gain 2-3 pounds overnight or 5 pounds in one week, call your primary physician for guidance on your medications. Keep a log of your weights. Avoid salt, or foods with hidden salt. Extra salt makes your heart work harder and traps the fluid in your body for longer. Take all of your medications as directed, especially your water pills. NEVER skip a dose. Elevate your legs when you are not up moving around to help with circulation and prevent swelling. Call your physician if you notice any extra swelling in your legs, ankles, feet or abdomen, if you have a new dry cough, if your shortness of breath worsens with activity or at rest, or if you feel more fatigued Healthy LifeStyle It is important to keep a heart healthy lifestyle. This can improve your long- term health and decrease your risk for heart attacks. -Managing your blood cholesterol, blood pressure, weight, and stress. -The importance of regular exercise. -Heart Healthy Diet: Include more plants in your diet. Eat lots of fresh vegetables and fresh fruits. Eat good fats: plant based oils, avocado, nuts, beans, legumes. Eat more seafood. Limit Meat. Switch to whole grains. -Avoid fried foods and animal fats and processed meats Follow up with your PCP and [facility] Discharge Disposition: HOME SELF-CARE
[2024-04-04 16:29] VITALS: BP 94/67; TEMP 98.4
[2024-04-04] MEDS ORDERED: METOPROLOL TARTRATE 25 MG TAB PO SCH (21:00)
== END 2024-04-04 17:07 | disposition home or self-care (01) | DRG 174 ==
LOC: EC 07:12 → 2SICU 07:31 → 3SCARD 04-03 18:47
PROVIDERS: ADMIT Internal Medicine; ATTEND Internal Medicine
PROC: 027034Z Dilation of Coronary Artery, One Artery with Drug-eluting Intraluminal Device, Percutaneous Approach (ICD-10-PCS; principal; 2024-04-02 07:28)
PROC: 4A023N7 Measurement of Cardiac Sampling and Pressure, Left Heart, Percutaneous Approach (ICD-10-PCS; 2024-04-02 07:28)
PROC: B2111ZZ Fluoroscopy of Multiple Coronary Arteries using Low Osmolar Contrast (ICD-10-PCS; 2024-04-02 07:28)
PROC: B240ZZ3 Ultrasonography of Single Coronary Artery, Intravascular (ICD-10-PCS; 2024-04-02 07:28)
DX: I21.02 ST elevation (STEMI) myocardial infarction involving left anterior descending coronary artery (principal); I25.119 Atherosclerotic heart disease of native coronary artery with unspecified angina pectoris; E66.01 Morbid (severe) obesity due to excess calories; I10 Essential (primary) hypertension; E78.00 Pure hypercholesterolemia, unspecified; R73.03 Prediabetes; I25.5 Ischemic cardiomyopathy; Z68.39 Body mass index [BMI] 39.0-39.9, adult; Z86.718 Personal history of other venous thrombosis and embolism
CPT/HCPCS: 71045; 76937; 80048; 80053; 80061; 83036; 83735; 84484; 85025; 85610; 85730; 92978; 93005; 93306; 93458; 94760; 96374; 96375; 99285

== ENCOUNTER 2024-04-06 10:24 | Inpatient (IN) | payer OTHER ==
--- NOTE | 2024-04-06 11:02 | ED ---
General Adult HPI - General Chief complaint: Fever Stated complaint: had stemi fri/has fever Time Seen by Provider: 04/06/24 10:30 Source: patient Mode of arrival: ambulatory Limitations: no limitations - History of Present Illness Initial comments: 39-year-old male with past medical history of hypertension, SD who presents emergency department reporting body aches and fevers. States that he had a heart attack on Friday. Patient went to [facility] and had a stent placed. He was placed on Brilinta. States has been taking his medications as directed ho wever today he woke up and began having diffuse body shakes, nausea and a fever. He did take 2 Tylenol before coming to the hospital. He denies any other source of his infection. He does have mild shortness of breath but denies chest pain. No abdominal pain. No changes in his bowel or bladder habits. No other alleviating, precipitating or modifying factors - Related Data Home Medications Medication Instructions Recorded Confirmed Acetaminophen Tab [Tylenol] 1,000 mg PO Q6HR PRN 04/06/24 04/06/24 Previous Rx's Medication Instructions Recorded Aspirin 81 mg PO DAILY #30 tab 04/04/24 Atorvastatin [Lipitor] 80 mg PO HS #30 tab 04/04/24 Empagliflozin [Jardiance] 25 mg PO DAILY #30 tab 04/04/24 Ezetimibe [Zetia] 10 mg PO DAILY #30 tab 04/04/24 Losartan [Cozaar] 12.5 mg PO BID #30 tab 04/04/24 Metoprolol Tartrate [Lopressor] 75 mg PO BID #180 tab 04/04/24 Spironolactone [Aldactone] 12.5 mg PO DAILY #30 tab 04/04/24 Ticagrelor [Brilinta] 90 mg PO BID #60 tab 04/04/24 Amoxic-Pot Clav 875-125Mg 1 tab PO Q12HR 10 Days #20 tab 04/09/24 [Augmentin 875-125] Isosorbide Mononitrate ER [Imdur] 30 mg PO DAILY 30 Days #30 tab 04/09/24 L.acidoph,Paracasei, B.lactis 1 each PO BID 10 Days #20 capsule 04/09/24 [Probiotic] Pantoprazole [Protonix] 40 mg PO DAILY 30 Days #30 tab 04/09/24 Allergies Allergy/AdvReac Type Severity Reaction Status Date / Time No Known Allergies Allergy Verified 04/06/24 11:07 Review of Systems ROS Statement: Those systems with pertinent positive or pertinent negative responses have been documented in the HPI. ROS Other: All systems not noted in ROS Statement are negative. Past Medical History Past Medical History: Hypertension, Myocardial Infarction (SD) Additional Past Medical History / Comment(s): dvt- right leg History of Any Multi-Drug Resistant Organisms: None Reported Past Surgical History: Appendectomy Additional Past Surgical History / Comment(s): right shoulder Additional Past Anesthesia/Blood Transfusion Reaction / Comment(s): difficulty coming out of anesthesia after shoulder surgery Past Psychological History: Depression Smoking Status: Never smoker Past Alcohol Use History: None Reported Past Drug Use History: Marijuana General Exam Limitations: no limitations General appearance: alert, in no apparent distress Head exam: Present: atraumatic, normocephalic, normal inspection Eye exam: Present: normal appearance, PERRL, EOMI. Absent: scleral icterus, conjunctival injection, periorbital swelling ENT exam: Present: normal exam, mucous membranes moist Neck exam: Present: normal inspection. Absent: tenderness, meningismus, lymphadenopathy Respiratory exam: Present: normal lung sounds bilaterally. Absent: respiratory distress, wheezes, rales, rhonchi, stridor Cardiovascular Exam: Present: regular rate, normal rhythm, normal heart sounds. Absent: systolic murmur, diastolic murmur, rubs, gallop, clicks GI/Abdominal exam: Present: soft, normal bowel sounds. Absent: distended, tenderness, guarding, rebound, rigid Extremities exam: Present: normal inspection, full ROM, normal capillary refill. Absent: tenderness, pedal edema, joint swelling, calf tenderness Back exam: Present: normal inspection Neurological exam: Present: alert, oriented X3, CN II-XII intact Psychiatric exam: Present: normal affect, normal mood Skin exam: Present: warm, dry, intact, normal color. Absent: rash Course Vital Signs 04/06/24 04/06/24 04/06/24 10:27 11:20 12:06 Temperature 99.9 F H Pulse Rate 92 81 90 Respiratory 20 24 24 Rate Blood Pressure 113/71 100/61 119/70 O2 Sat by Pulse 99 100 97 Oximetry 04/06/24 04/06/24 04/06/24 13:06 15:56 17:51 Temperature 100.1 F H 102.7 F H 98.9 F Pulse Rate 83 85 Respiratory 18 20 Rate Blood Pressure 115/63 111/61 O2 Sat by Pulse 98 96 Oximetry Medical Decision Making - Medical Decision Making Was pt. sent in by a medical professional or institution (, PA, BOAT JOINER HELPER, urgent care, hospital, or detention...) When possible be specific @ -No Did you speak to anyone other than the patient for history (EMS, parent, family, police, friend...)? What history was obtained from this source @ -Spoke with patient's significant other Did you review nursing and triage notes (agree or disagree)? Why? @ -I reviewed and agree with nursing and triage notes Were old charts reviewed (outside hosp., previous admission, EMS record, old EKG, old radiological studies, urgent care reports/EKG's, detention records)? Report findings @ -I reviewed patient's cath report from April 02 which was done by Dr. Leon Differential Diagnosis (chest pain, altered mental status, abdominal pain women, abdominal pain men, vaginal bleeding, weakness, fever, dyspnea, syncope, headache, dizziness, GI bleed, back pain, seizure, CVA, palpatations, mental health, musculoskeletal)? @ -Differential Fever: Pneumonia, viral URI, endocarditis, myocarditis, pericarditis, otitis, sinusitis, peritonsillar Abscess, retropharyngeal Abscess, epiglottitis, peritonitis, appendicitis, [place] cystitis, diverticulitis, hepatitis, colitis, UTI, PID, TOA, pyelonephritis, prostatitis, epididymitis, meningitis, encephalitis, pulmonary embolism, CVA, thyroid storm, pancreatitis, adrenal crisis, cavernous sinus thrombosis, this is not meant to be an all-inclusive list. EKG interpreted by me (3pts min.). @ -Yes and demonstrates sinus rhythm with rate of 93. CA interval 168. QRS 108. QTc of 365. Left bundle with some ST elevation V2V3. No reciprocal changes X-rays interpreted by me (1pt min.). @ -Yes and demonstrates no acute process CT interpreted by me (1pt min.). @ -None done U/S interpreted by me (1pt. min.). @ -None done What testing was considered but not performed or refused? (CT, X-rays, U/S, labs)? Why? @ -None What meds were considered but not given or refused? Why? @ -None Did you discuss the management of the patient with other professionals (professionals i.e. , PA, BOAT JOINER HELPER, lab, RT, psych nurse, social research assistant, home agent, teacher, earth science technical officer, patient case manager)? Give summary @ -Spoke with Dr. Salazar as he did patients heart cath and Dr. Lorenzana for admission Was smoking cessation discussed for >3mins.? @ -No Was critical care preformed (if so, how long)? @ -No Were there social determinants of health that impacted care today? How? (Homelessness, low income, unemployed, alcoholism, drug addiction, transportation, low edu. Level, literacy, decrease access to med. care, retirement, rehab)? @ -No Was there de-escalation of care discussed even if they declined (Discuss DNR or withdrawal of care, Hospice)? DNR status @ -No What co-morbidities impacted this encounter? (DM, HTN, Smoking, COPD, CAD, Cancer, CVA, ARF, Chemo, Hep., AIDS, mental health diagnosis, sleep apnea, morbid obesity)? @ -Coronary artery disease Was patient admitted / discharged? Hospital course, mention meds given and rout e, prescriptions, significant lab abnormalities, going to OR and other pertinent info. @ -Upon arrival patient seen and evaluated in trauma 4. Thorough history and physical exam was performed. Patient placed on continuous pulse ox and cardiac monitoring. Twelve-lead EKG is obtained. Laboratory studies were conducted. Patient was given antipyretics. Blood cultures obtained. UA is positive for nitrites and white blood cell clumps. This may be the source of the patient's fever and therefore he is covered with a dose of Rocephin. Spoke with Dr. Leon. Patient will be admitted for an echo. Spoke with Dr. Lorenzana who accepted admission Undiagnosed new problem with uncertain prognosis? @ -Yes Drug Therapy requiring intensive monitoring for toxicity (Heparin, Nitro, Insulin, Cardizem)? @ -No Were any procedures done? @ -No Diagnosis/symptom? @ -Acute pyrexia, acute UTI, status post PCI Acute, or Chronic, or Acute on Chronic? @ -Acute Uncomplicated (without systemic symptoms) or Complicated (systemic symptoms)? @ -Complicated Side effects of treatment? @ -No Exacerbation, Progression, or Severe Exacerbation? @ -No Poses a threat to life or bodily function? How? (Chest pain, USA, SD, pneumonia, PE, COPD, DKA, ARF, appy, cholecystitis, CVA, Diverticulitis, Homicidal, Suic idal, threat to staff... and all critical care pts) @ -Yes as patient has postprocedural fever - Lab Data Result diagrams: 04/09/24 05:20 04/09/24 05:20 Lab Results 04/06/24 04/06/24 04/06/24 Range/Units 11:15 11:15 11:15 WBC 13.5 H (3.8-10.6) k/uL RBC 4.46 (4.30-5.90) m/uL Hgb 13.3 (13.0-17.5) gm/dL Hct 40.4 (39.0-53.0) % MCV 90.4 (80.0-100.0) fL MCH 29.8 (25.0-35.0) pg MCHC 33.0 (31.0-37.0) g/dL RDW 13.6 (11.5-15.5) % Plt Count 298 (150-450) k/uL MPV 7.2 Neutrophils % 85 % Lymphocytes % 9 % Monocytes % 5 % Eosinophils % 0 % Basophils % 0 % Neutrophils # 11.4 H (1.3-7.7) k/uL Lymphocytes # 1.2 (1.0-4.8) k/uL Monocytes # 0.7 (0-1.0) k/uL Eosinophils # 0.0 (0-0.7) k/uL Basophils # 0.0 (0-0.2) k/uL ESR (0-15) mm/Hr Sodium 132 L (137-145) mmol/L Potassium 3.6 (3.5-5.1) mmol/L Chloride 102 (98-107) mmol/L Carbon Dioxide 16 L (22-30) mmol/L Anion Gap 14 mmol/L BUN 14 (9-20) mg/dL Creatinine 1.15 (0.66-1.25) mg/dL Est GFR (CKD-EPI)AfAm >90 (>60 ml/min/1.73 sqM) Est GFR (CKD-EPI)NonAf 80 (>60 ml/min/1.73 sqM) Glucose 144 H (74-99) mg/dL Lactic Ac Sepsis Rflx Plasma Lactic Acid Sohan (0.7-2.0) mmol/L Calcium 9.1 (8.4-10.2) mg/dL Total Bilirubin 1.2 (0.2-1.3) mg/dL AST 46 (17-59) U/L ALT 41 (4-49) U/L Alkaline Phosphatase 60 (38-126) U/L Troponin I (0.000-0.034) ng/mL C-Reactive Protein (<1.0) mg/dL NT-Pro-B Natriuret Pep 1470 pg/mL Total Protein 7.2 (6.3-8.2) g/dL Albumin 4.3 (3.5-5.0) g/dL Urine Color Light Yellow Urine Appearance Cloudy (Clear) Urine pH 6.0 (5.0-8.0) Ur Specific Edison 1.031 (1.001-1.035) Urine Protein 1+ H (Negative) Urine Glucose (UA) 4+ H (Negative) Urine Ketones 1+ H (Negative) Urine Blood Trace H (Negative) Urine Nitrite Positive (Negative) Urine Bilirubin Negative (Negative) Urine Urobilinogen <2.0 (<2.0) mg/dL Ur Leukocyte Esterase Small H (Negative) Urine RBC 3 (0-5) /hpf Urine WBC 55 H (0-5) /hpf Urine WBC Clumps Few H (None) /hpf Urine Bacteria Occasional H (None) /hpf Urine Mucus Rare H (None) /hpf Influenza Type A (PCR) (Not Detectd) Influenza Type B (PCR) (Not Detectd) RSV (PCR) (Not Detectd) SARS-CoV-2 (PCR) (Not Detectd) 04/06/24 04/06/24 04/06/24 Range/Units 11:15 11:15 11:15 WBC (3.8-10.6) k/uL RBC (4.30-5.90) m/uL Hgb (13.0-17.5) gm/dL Hct (39.0-53.0) % MCV (80.0-100.0) fL MCH (25.0-35.0) pg MCHC (31.0-37.0) g/dL RDW (11.5-15.5) % Plt Count (150-450) k/uL MPV Neutrophils % % Lymphocytes % % Monocytes % % Eosinophils % % Basophils % % Neutrophils # (1.3-7.7) k/uL Lymphocytes # (1.0-4.8) k/uL Monocytes # (0-1.0) k/uL Eosinophils # (0-0.7) k/uL Basophils # (0-0.2) k/uL ESR (0-15) mm/Hr Sodium (137-145) mmol/L Potassium (3.5-5.1) mmol/L Chloride (98-107) mmol/L Carbon Dioxide (22-30) mmol/L Anion Gap mmol/L BUN (9-20) mg/dL Creatinine (0.66-1.25) mg/dL Est GFR (CKD-EPI)AfAm (>60 ml/min/1.73 sqM) Est GFR (CKD-EPI)NonAf (>60 ml/min/1.73 sqM) Glucose (74-99) mg/dL Lactic Ac Sepsis Rflx Plasma Lactic Acid Sohan 2.2 H* (0.7-2.0) mmol/L Calcium (8.4-10.2) mg/dL Total Bilirubin (0.2-1.3) mg/dL AST (17-59) U/L ALT (4-49) U/L Alkaline Phosphatase (38-126) U/L Troponin I 5.170 H* (0.000-0.034) ng/mL C-Reactive Protein (<1.0) mg/dL NT-Pro-B Natriuret Pep pg/mL Total Protein (6.3-8.2) g/dL Albumin (3.5-5.0) g/dL Urine Color Urine Appearance (Clear) Urine pH (5.0-8.0) Ur Specific Edison (1.001-1.035) Urine Protein (Negative) Urine Glucose (UA) (Negative) Urine Ketones (Negative) Urine Blood (Negative) Urine Nitrite (Negative) Urine Bilirubin (Negative) Urine Urobilinogen (<2.0) mg/dL Ur Leukocyte Esterase (Negative) Urine RBC (0-5) /hpf Urine WBC (0-5) /hpf Urine WBC Clumps (None) /hpf Urine Bacteria (None) /hpf Urine Mucus (None) /hpf Influenza Type A (PCR) Not Detected (Not Detectd) Influenza Type B (PCR) Not Detected (Not Detectd) RSV (PCR) Not Detected (Not Detectd) SARS-CoV-2 (PCR) Not Detected (Not Detectd) 04/06/24 04/06/24 04/06/24 Range/Units 11:15 11:15 11:48 WBC (3.8-10.6) k/uL RBC (4.30-5.90) m/uL Hgb (13.0-17.5) gm/dL Hct (39.0-53.0) % MCV (80.0-100.0) fL MCH (25.0-35.0) pg MCHC (31.0-37.0) g/dL RDW (11.5-15.5) % Plt Count (150-450) k/uL MPV Neutrophils % % Lymphocytes % % Monocytes % % Eosinophils % % Basophils % % Neutrophils # (1.3-7.7) k/uL Lymphocytes # (1.0-4.8) k/uL Monocytes # (0-1.0) k/uL Eosinophils # (0-0.7) k/uL Basophils # (0-0.2) k/uL ESR 70 H (0-15) mm/Hr Sodium (137-145) mmol/L Potassium (3.5-5.1) mmol/L Chloride (98-107) mmol/L Carbon Dioxide (22-30) mmol/L Anion Gap mmol/L BUN (9-20) mg/dL Creatinine (0.66-1.25) mg/dL Est GFR (CKD-EPI)AfAm (>60 ml/min/1.73 sqM) Est GFR (CKD-EPI)NonAf (>60 ml/min/1.73 sqM) Glucose (74-99) mg/dL Lactic Ac Sepsis Rflx Y Plasma Lactic Acid Sohan (0.7-2.0) mmol/L Calcium (8.4-10.2) mg/dL Total Bilirubin (0.2-1.3) mg/dL AST (17-59) U/L ALT (4-49) U/L Alkaline Phosphatase (38-126) U/L Troponin I (0.000-0.034) ng/mL C-Reactive Protein 6.3 H (<1.0) mg/dL NT-Pro-B Natriuret Pep pg/mL Total Protein (6.3-8.2) g/dL Albumin (3.5-5.0) g/dL Urine Color Urine Appearance (Clear) Urine pH (5.0-8.0) Ur Specific Edison (1.001-1.035) Urine Protein (Negative) Urine Glucose (UA) (Negative) Urine Ketones (Negative) Urine Blood (Negative) Urine Nitrite (Negative) Urine Bilirubin (Negative) Urine Urobilinogen (<2.0) mg/dL Ur Leukocyte Esterase (Negative) Urine RBC (0-5) /hpf Urine WBC (0-5) /hpf Urine WBC Clumps (None) /hpf Urine Bacteria (None) /hpf Urine Mucus (None) /hpf Influenza Type A (PCR) (Not Detectd) Influenza Type B (PCR) (Not Detectd) RSV (PCR) (Not Detectd) SARS-CoV-2 (PCR) (Not Detectd) 04/06/24 Range/Units 14:34 WBC (3.8-10.6) k/uL RBC (4.30-5.90) m/uL Hgb (13.0-17.5) gm/dL Hct (39.0-53.0) % MCV (80.0-100.0) fL MCH (25.0-35.0) pg MCHC (31.0-37.0) g/dL RDW (11.5-15.5) % Plt Count (150-450) k/uL MPV Neutrophils % % Lymphocytes % % Monocytes % % Eosinophils % % Basophils % % Neutrophils # (1.3-7.7) k/uL Lymphocytes # (1.0-4.8) k/uL Monocytes # (0-1.0) k/uL Eosinophils # (0-0.7) k/uL Basophils # (0-0.2) k/uL ESR (0-15) mm/Hr Sodium (137-145) mmol/L Potassium (3.5-5.1) mmol/L Chloride (98-107) mmol/L Carbon Dioxide (22-30) mmol/L Anion Gap mmol/L BUN (9-20) mg/dL Creatinine (0.66-1.25) mg/dL Est GFR (CKD-EPI)AfAm (>60 ml/min/1.73 sqM) Est GFR (CKD-EPI)NonAf (>60 ml/min/1.73 sqM) Glucose (74-99) mg/dL Lactic Ac Sepsis Rflx Plasma Lactic Acid Sohan 1.8 (0.7-2.0) mmol/L Calcium (8.4-10.2) mg/dL Total Bilirubin (0.2-1.3) mg/dL AST (17-59) U/L ALT (4-49) U/L Alkaline Phosphatase (38-126) U/L Troponin I (0.000-0.034) ng/mL C-Reactive Protein (<1.0) mg/dL NT-Pro-B Natriuret Pep pg/mL Total Protein (6.3-8.2) g/dL Albumin (3.5-5.0) g/dL Urine Color Urine Appearance (Clear) Urine pH (5.0-8.0) Ur Specific Edison (1.001-1.035) Urine Protein (Negative) Urine Glucose (UA) (Negative) Urine Ketones (Negative) Urine Blood (Negative) Urine Nitrite (Negative) Urine Bilirubin (Negative) Urine Urobilinogen (<2.0) mg/dL Ur Leukocyte Esterase (Negative) Urine RBC (0-5) /hpf Urine WBC (0-5) /hpf Urine WBC Clumps (None) /hpf Urine Bacteria (None) /hpf Urine Mucus (None) /hpf Influenza Type A (PCR) (Not Detectd) Influenza Type B (PCR) (Not Detectd) RSV (PCR) (Not Detectd) SARS-CoV-2 (PCR) (Not Detectd) Disposition Clinical Impression: Fever, UTI (urinary tract infection), S/P cardiac cath Disposition: ADMITTED IP TO THIS HOSP Condition: Stable Is patient prescribed a controlled substance at d/c from ED?: No Time of Disposition: 15:06 Decision to Admit Reason: Admit from EC Decision Date: 04/06/24 Decision Time: 15:06
[2024-04-06] MEDS: SODIUM CHLORIDE 0.9% 1,000 ML IV STA (11:23)
[2024-04-06 11:39] LABS: ALT 41 U/L (4-49); African American GFR (CKD) >90 (>60 ml/min/1.73 sqM); Albumin 4.3 g/dL (3.5-5.0); Anion Gap 14 mmol/L; Blood Urea Nitrogen 14 mg/dL (9-20); Calcium 9.1 mg/dL (8.4-10.2); Carbon Dioxide 16 mmol/L (22-30); Chloride 102 mmol/L (98-107); Glucose 144 mg/dL (74-99); Non-African American GFR(CKD) 80 (>60 ml/min/1.73 sqM); Sodium 132 mmol/L (137-145); Total Bilirubin 1.2 mg/dL (0.2-1.3); Total Protein 7.2 g/dL (6.3-8.2)
[2024-04-06 11:46] LABS: NT-Pro-B-Type Natriuretic Pept 1470 pg/mL
[2024-04-06 11:47] LABS: AST 46 U/L (17-59); Alkaline Phosphatase 60 U/L (38-126); Potassium 3.6 mmol/L (3.5-5.1)
[2024-04-06 11:56] LABS: Basophils % (A) 0 %; Eosinophils % (A) 0 %; HCT 40.4 % (39.0-53.0); HGB 13.3 gm/dL (13.0-17.5); Lymphocytes # (A) 1.2 k/uL (1.0-4.8); Lymphocytes % (A) 9 %; MCH 29.8 pg (25.0-35.0); MCV 90.4 fL (80.0-100.0); Mean Platelet Volume 7.2; Monocytes # (A) 0.7 k/uL (0-1.0); Monocytes % (A) 5 %; Neutrophils # (A) 11.4 k/uL (1.3-7.7); Neutrophils % (A) 85 %; Platelet Count 298 k/uL (150-450); RBC 4.46 m/uL (4.30-5.90); RDW 13.6 % (11.5-15.5); WBC 13.5 k/uL (3.8-10.6)
--- NOTE | 2024-04-06 13:15 | XR ---
EXAMINATION TYPE: XR chest 2V DATE OF EXAM: 04/06/2024 COMPARISON: 04/02/2024 HISTORY: 39-year-old male short of breath TECHNIQUE: AP and lateral views FINDINGS: Heart mildly enlarged, probably in part magnified due to AP technique and large body habitus. No kiesha k consolidation or pleural effusion. IMPRESSION: Mild cardiomegaly, appearance possibly in part due to large body habitus and technique. Clinically co rrelate. Otherwise, no acute process seen.
[2024-04-06] MEDS: SODIUM CHLORIDE 0.9% 1,000 ML IV SCH (14:10)
[2024-04-06] MEDS: IBUPROFEN 600 MG TAB PO STA (14:23)
[2024-04-06 14:40] LABS: Appearance,Urine Cloudy (Clear); Bacteria,Urine Occasional /hpf; Bilirubin,Urine Negative (Negative); Blood,Urine Trace (Negative); Color,Urine Light Yellow; Glucose,Urine (UA) 4+ (Negative); Ketones,Urine 1+ (Negative); Leukocyte Esterase,Urine Small (Negative); Mucus,Urine Rare /hpf; Nitrite,Urine Positive (Negative); Protein,Urine 1+ (Negative); RBC,Urine 3 /hpf (0-5); Specific Gravity,Urine 1.031 (1.001-1.035); Urobilinogen,Urine <2.0 mg/dL (<2.0); WBC,Urine 55 /hpf (0-5)
[2024-04-06] MEDS: cefTRIAXone IN SWFI 1,000 MG/10 ML SYRINGE IVP STA (15:00)
[2024-04-06] MEDS ORDERED: IBUPROFEN 400 MG TAB PO PRN (15:07)
[2024-04-06] MEDS ORDERED: NALOXONE 0.4 MG/ML 1 ML VIAL IV PRN (15:07)
[2024-04-06] MEDS: ACETAMINOPHEN TAB 325 MG TAB PO PRN (16:00)
[2024-04-06] MEDS: KETOROLAC 15 MG/ML 1 ML VIAL IVP STA (16:36)
[2024-04-06] MEDS ORDERED: ONDANSETRON 4 MG/2 ML VIAL IVP PRN (17:40)
--- NOTE | 2024-04-06 17:42 | P.HPIM ---
History of Present Illness H&P Date: 04/06/24 History of Presenting Illness: Patient is a pleasant 39-year-old male with a past medical history of hypertension and recent STEMI on 04/02/24 who underwent successful stenting of LAD and was discharged home from hospital on 04/04/2024. [facility] to fevers, body aches, and mild nausea. Patient reports since being discharged from hospital on Friday was feeling at his baseline self but this morning awoke with significant chills, diaphoresis, fevers, and generalized bodyaches. He denies any exposure to known illness or ill contacts, dizziness, lightheadedness, chest pain or pressure, palpitations, shortness of breath, cough or congestion, abdominal pain, vomiting, diarrhea, or experiencing any changes in or difficulties with his urinary function. Upon arrival to our facility, patient underwent evaluation in the emergency department. Vital signs upon arrival show blood pressure 113/71, heart rate 92, respiratory rate 20, temp 99.9 F, and SpO2 of 99% on room air. Temp continued to elevate in the emergency department up to 102.7 F despite administration of Tylenol. EKG showing normal sinus rhythm at 93 bpm with T wave inversion in lateral leads I, aVL, V5 and V6. Chest x-ray showing mild cardiomegaly and otherwise negative for acute cardiopulmonary process. Labs completed and reviewed. CBC showing leukocytosis with WBC count of 13.5. BMP showing hyponatremia with sodium of 132, hypocarbia with bicarb of 16, and mildly elevated anion gap of 14. Blood glucose 144. Lactic acid 2.2. Liver profile normal findings. Troponin was 5.170 and proBNP was 1470. Urinalysis positive for protein, glucose, ketones, nitrites, and 55 WBCs. Influenza A, influenza B, RSV, and COVID PCR were negative. Patient admitted under our services with consultation to cardiology. Review of systems: Pertinent positives and negatives as discussed in HPI, a complete review of systems was performed and all other systems are negative. Physical exam: Vital signs reviewed and stable. General: Nontoxic, no distress and appears stated age. Derm: Skin warm and dry, normal coloration for ethnicity. Head: Atraumatic, normocephalic and symmetric. Eyes: EOMs intact, no lid lag, and anicteric sclera Mouth: no lip lesions, mucus membranes moist Cardiovascular: regular rate and rhythm with normal S1S2, no murmur, positive posterior tibial pulses bilaterally, and cap refill < 2 seconds. Cardiac cath access site right groin showing no signs of hematoma, erythema, or drainage. Lungs: Respirations even, regular, and unlabored on room air. Lungs CTA bilaterally, no rhonchi, no rales, no wheezing, and no accessory muscle usage. Abdominal: soft, nontender to palpation, no guarding, no appreciable organomegaly Ext: ROM intact. No gross muscle atrophy, no edema, no contractures Neuro: Speech clear, face symmetrical and CN II-XII grossly intact with no noted focal neuro deficits Psych: Alert and oriented to person, place, time, and situation. Appropriate and pleasant affect. Assessment and Plan of Care: Postinfarct fever Recent STEMI on 04/02/24 Ischemic cardiomyopathy with EF of 35 to 40% Elevated troponin Lactic acidosis Hypertension -Cardiology consulted, called and discussed plan of care with patient's equipment specialist (Dr. Salazar). -Previous Cardiac cath access site to right groin showing no signs of hematoma, erythema, or drainage. -Patient to remain on continuous telemetry monitoring -Trend troponins. Currently troponin is elevated at 5.170 but has improved and downtrending from previous troponin of 40.800 on 04/02/2024. -Follow-up on blood culture results and order placed for ESR and CRP. -Cardiac diet -Continue cardiac medication regimen with aspirin 81 mg daily, atorvastatin 80 mg nightly, Jardiance 25 mg daily, Zetia 10 mg daily, losartan 12.5 mg twice daily, metoprolol 75 mg twice daily, Aldactone 12.5 mg daily, and Brilinta 90 mg twice daily. -Echocardiogram to be completed. -Lactic acidosis resolved after IV fluid hydration with repeat lactate of 1.8. Will hold off on maintenance fluids at this time and resume patient's home Aldactone 12.5 mg daily tomorrow morning. -Tylenol 650 mg every 6 hours as needed for mild pain/fever, [place] 5/325 mg tablets every 4 hours as needed for moderate pain, and morphine 4 mg IVP every 4 hours as needed for severe pain. -Zofran 4 mg IVP every 8 hours as needed for nausea and/or vomiting. Abnormal urinalysis -Patient denies urinary complaints including frequency, urgency, dysuria, or hematuria. Abnormal urinalysis likely due to asymptomatic bacteriuria -Patient received 1 dose of IV antibiotics with Rocephin in the emergency department, will hold off on further treatment of abnormal urinalysis unless patient becomes symptomatic of urinary complaints. Data and imaging reviewed: As stated above in HPI CODE STATUS: Full Code DVT prophylaxis: Heparin Anticipated discharge date: Pending clinical course Anticipated discharge place: Home Patient was seen independently by Nurse Practitioner. This document was prepared using [employer]ish dictation software. Please allow for errors in layout inspector while rare they do occur. Alvarez De León NP rendered care for this patient independently, reviewed the findings and plan as documented in the note above. I did not physically speak with or examine the patient on this date. Past Medical History Past Medical History: Hypertension, Myocardial Infarction ([place]) Additional Past Medical History / Comment(s): dvt- right leg History of Any Multi-Drug Resistant Organisms: None Reported Past Surgical History: Appendectomy Additional Past Surgical History / Comment(s): right shoulder Additional Past Anesthesia/Blood Transfusion Reaction / Comment(s): difficulty coming out of anesthesia after shoulder surgery Past Psychological History: Depression Smoking Status: Never smoker Past Alcohol Use History: None Reported Past Drug Use History: Marijuana Medications and Allergies Home Medications Medication Instructions Recorded Confirmed Type Aspirin 81 mg PO DAILY #30 tab 04/04/24 04/06/24 Rx Atorvastatin [Lipitor] 80 mg PO HS #30 tab 04/04/24 04/06/24 Rx Empagliflozin [Jardiance] 25 mg PO DAILY #30 tab 04/04/24 04/06/24 Rx Ezetimibe [Zetia] 10 mg PO DAILY #30 tab 04/04/24 04/06/24 Rx Losartan [Cozaar] 12.5 mg PO BID #30 tab 04/04/24 04/06/24 Rx Metoprolol Tartrate [Lopressor] 75 mg PO BID #180 tab 04/04/24 04/06/24 Rx Spironolactone [Aldactone] 12.5 mg PO DAILY #30 tab 04/04/24 04/06/24 Rx Ticagrelor [Brilinta] 90 mg PO BID #60 tab 04/04/24 04/06/24 Rx Acetaminophen Tab [Tylenol Tab] 1,000 mg PO Q6HR PRN 04/06/24 04/06/24 History Allergies Allergy/AdvReac Type Severity Reaction Status Date / Time No Known Allergies Allergy Verified 04/06/24 11:07 Physical Exam Vitals: Vital Signs Temp Pulse Resp BP Pulse Ox 04/06/24 13:06 100.1 F H 83 18 115/63 98 04/06/24 12:06 90 24 119/70 97 04/06/24 11:20 81 24 100/61 100 04/06/24 10:27 99.9 F H 92 20 113/71 99 Intake and Output 04/06/24 04/06/24 04/06/24 06:59 14:59 22:59 Other: Weight 122.47 kg Results CBC & Chem 7: 04/07/24 06:40 04/07/24 06:40 Labs: Abnormal Lab Results - Last 24 Hours (Table) 04/06/24 04/06/24 04/06/24 Range/Units 11:15 11:15 11:15 WBC 13.5 H (3.8-10.6) k/uL Neutrophils # 11.4 H (1.3-7.7) k/uL Sodium 132 L (137-145) mmol/L Carbon Dioxide 16 L (22-30) mmol/L Glucose 144 H (74-99) mg/dL Plasma Lactic Acid Sohan (0.7-2.0) mmol/L Troponin I (0.000-0.034) ng/mL Urine Protein 1+ H (Negative) Urine Glucose (UA) 4+ H (Negative) Urine Ketones 1+ H (Negative) Urine Blood Trace H (Negative) Ur Leukocyte Esterase Small H (Negative) Urine WBC 55 H (0-5) /hpf Urine WBC Clumps Few H (None) /hpf Urine Bacteria Occasional H (None) /hpf Urine Mucus Rare H (None) /hpf 04/06/24 04/06/24 Range/Units 11:15 11:15 WBC (3.8-10.6) k/uL Neutrophils # (1.3-7.7) k/uL Sodium (137-145) mmol/L Carbon Dioxide (22-30) mmol/L Glucose (74-99) mg/dL Plasma Lactic Acid Sohan 2.2 H* (0.7-2.0) mmol/L Troponin I 5.170 H* (0.000-0.034) ng/mL Urine Protein (Negative) Urine Glucose (UA) (Negative) Urine Ketones (Negative) Urine Blood (Negative) Ur Leukocyte Esterase (Negative) Urine WBC (0-5) /hpf Urine WBC Clumps (None) /hpf Urine Bacteria (None) /hpf Urine Mucus (None) /hpf
[2024-04-06] MEDS: ATORVASTATIN 80 MG TAB PO SCH (20:48)
[2024-04-06] MEDS: LOSARTAN 25 MG TAB PO SCH (20:49)
[2024-04-06] MEDS: HEPARIN SODIUM,PORCINE 5,000 UNIT/ML 1 ML VIAL SQ SCH (20:49)
[2024-04-06] MEDS: TICAGRELOR 90 MG TAB PO SCH (20:49)
[2024-04-06] MEDS: MORPHINE SULFATE 4 MG/ML SYRINGE IV PRN (20:57)
[2024-04-06] MEDS: METOPROLOL TARTRATE 25 MG TAB PO SCH (21:01)
[2024-04-06] MEDS ORDERED: NITROGLYCERIN SL TABS 0.4 MG TAB SUBLINGUAL PRN (21:29)
[2024-04-06] MEDS: ISOSORBIDE MONONITRATE ER 30 MG TAB.ER.24H PO SCH (21:39)
[2024-04-07] MEDS: VANCOMYCIN 125 MG CAPSULE PO SCH (02:03)
--- NOTE | 2024-04-07 04:29 | P.PN ---
Progress Note - Text Progress Note Date: 04/07/24 Informed by the patient's RN regarding patient's persistent fever. The patient was seen at the bedside and the chart was reviewed. The patient notes that he has been experiencing persistent diarrhea over the past 1 week which has gradually worsened. Patient reports that he was prescribed amoxicillin for a dental infection for 7-day course but that he took the medication 1 to 2 days at time over the following 1 month, competing the course a few days ago. Notes that shortly after finishing the medications that he developed this diarrhea with watery green stools without significant blood or mucus. He does report diffuse stomach achiness. C. difficile testing was sent and patient was given a dose of oral vancomycin. C. difficile testing however has resulted negative. Patient will be switched to oral Flagyl for now. Repeat lactic acid testing was sent along with calprotectin levels.
[2024-04-07] MEDS: metroNIDAZOLE 250 MG TABLET PO SCH (05:55)
[2024-04-07] MEDS: DAPAGLIFLOZIN PROPANEDIOL 10 MG TABLET PO SCH (09:35)
[2024-04-07] MEDS: EZETIMIBE 10 MG TAB PO SCH (09:35)
[2024-04-07] MEDS: ASPIRIN 81 MG PO SCH (09:35)
[2024-04-07] MEDS: SPIRONOLACTONE 25 MG TAB PO SCH (09:36)
[2024-04-07 10:39] LABS: HCT 33.6 % (39.6-50.0); HGB 11.2 g/dL (13.0-17.0); MCH 29.2 pg (27.0-32.0); MCHC 33.3 g/dL (32.0-37.0); MCV 87.7 FL (80.0-97.0); Mean Platelet Volume 9.3 FL (9.5-12.2); NRBC Per 100 WBC 0 X 10*3/uL (0.00-0.01); Platelet Count 263 X 10*3/uL (140-440); RBC 3.83 X 10*6/uL (4.40-5.60); RDW 13.7 % (11.5-14.5); WBC 16.58 X 10*3/uL (4.50-10.00)
[2024-04-07 10:53] LABS: ALT 45 U/L (10-49); AST 35 U/L (14-35); Alkaline Phosphatase 60 U/L (41-126); BUN/Creat Ratio 10.08 Ratio (12.00-20.00); Blood Urea Nitrogen 13.1 mg/dL (9.0-27.0); Calcium 8.8 mg/dL (8.7-10.3); Carbon Dioxide 17.2 mmol/L (21.6-31.8); Chloride 95 mmol/L (96-109); Globulin 2.5 g/dL (1.6-3.3); Glucose 103 mg/dL (70-110); Magnesium 1.9 mg/dL (1.5-2.4); Sodium 129 mmol/L (135-145); Total Bilirubin 0.6 mg/dL (0.3-1.2); Total Protein 6.5 g/dL (6.2-8.2)
[2024-04-07 11:17] LABS: Basophils # (A) 0.04 X 10*3/uL (0.00-0.10); Basophils % (A) 0.2 %; Eosinophils # (A) 0 X 10*3/uL (0.04-0.35); Eosinophils % (A) 0 %; Lymphocytes # (A) 1.47 X 10*3/uL (0.90-5.00); Lymphocytes % (A) 8.9 %; Monocytes # (A) 2.08 X 10*3/uL (0.20-1.00); Monocytes % (A) 12.5 %; Neutrophils # (A) 12.92 X 10*3/uL (1.80-7.70); RBC Morphology Normal (Normal)
--- NOTE | 2024-04-07 11:17 | P.CRDCN ---
History of Present Illness History of present illness: HISTORY OF PRESENT ILLNESS: This is a 39-year-old male with a past medical history significant for recent STEMI with PCI of the LAD, hypertension, hyperlipidemia, and morbid obesity. Patient follows in the office with Dr. Salazar. We have been asked to see the patient in consultation for elevated troponins. Patient examined at the bedside. Patient was recently admitted to the hospital secondary to STEMI on 04/02/2024. He underwent cardiac catheterization with PCI to the LAD. Patient presents back to the hospital with a chief complaint of fever and headache. Patient's troponin 5.170, 5.380, and 4.210 this admission which is down from a troponin peak of 42.4 denies any chest pain or pressure. He denies any shortness of breath. Patient's white count today 16.58. Continues to be febrile with a temperature of 101.0. Radial and femoral cath site with pulse present with no signs of infection. DIAGNOSTICS: - EKG reveals sinus mechanism with T wave inversions in lead I, V5, V6. - Chest xray mild cardiomegaly, appearance possibly due in part to large body habitus and technique. Correlate clinically. Otherwise no acute process seen.. - Laboratory data: WBC 16.58. Hemoglobin 11.2. Platelet count 263. Sodium 129. Potassium 3.0. BUN 13. Creatinine 1.3. - Current home cardiac medications include Brilinta 90 mg twice a day, Aldactone 12.5 mg daily, metoprolol titrate 75 mg twice a day, losartan 12.5 mg twice a day, Zetia 10 mg daily, Jardiance 25 mg daily, aspirin 81 mg daily, and Lipitor 80 mg at night. - Most recent echocardiogram obtained on April 03, 2024 ejection fraction 35 to 40%, apex hypokinetic, hypokinetic septum, trace MR, trace TR REVIEW OF SYSTEMS: At the time of my exam: CONSTITUTIONAL: Denies fever or chills. HEENT: Denies blurred vision, vision changes, or eye pain. Denies hemoptysis CARDIOVASCULAR: Denies chest pain. Denies orthopnea. Denies PND. Denies palpitations RESPIRATORY: Denies shortness of breath. GASTROINTESTINAL: Denies abdominal pain. Denies nausea or vomiting. HEMATOLOGIC: Denies bleeding disorders. GENITOURINARY: Denies any blood in urine. SKIN: Denies pruitis. Denies rash. PHYSICAL EXAM: VITAL SIGNS: Reviewed. GENERAL: Well-developed in no acute distress. HEENT: Head is normocephalic. Pupils are equal, round. Sclerae anicteric. Mucous membranes of the mouth are moist. Neck supple. No JVD or thyromegaly LUNGS: Respirations even and unlabored. Lungs essentially clear to auscultation bilaterally. HEART: Regular rate and rhythm. S1 and S2 heard. ABDOMEN: Soft. Nondistended. Nontender. EXTREMITIES: Normal range of motion. No clubbing or cyanosis. Peripheral pulses intact. No lower extremity edema NEUROLOGIC: Awake and alert. Oriented x 3. ASSESSMENT: Fever with leukocytosis Headache Coronary artery disease with recent STEMI with PCI to the LAD, 04/02/2024 Ischemic cardiomyopathy, EF 35 to 40% Hypertension Hyperlipidemia Morbid obesity: BMI 37.7 PLAN: An acute coronary event has been ruled out. Patient's elevated troponins are secondary to recent STEMI and are trending downward. Resume home cardiac medications Consult infectious disease for further evaluation Further recommendations pending patient course Nurse practitioner note has been reviewed by physician. Signing provider agrees with the documented findings, assessment, and plan of care documented by MANAGER ADMINISTRATION as a scribe. Past Medical History Past Medical History: Hypertension, Myocardial Infarction ([place]) Additional Past Medical History / Comment(s): dvt- right leg Last Myocardial Infarction Date:: 04/02/24 History of Any Multi-Drug Resistant Organisms: None Reported Past Surgical History: Appendectomy Additional Past Surgical History / Comment(s): right shoulder Additional Past Anesthesia/Blood Transfusion Reaction / Comment(s): difficulty coming out of anesthesia after shoulder surgery Past Psychological History: Depression Smoking Status: Never smoker Past Alcohol Use History: None Reported Past Drug Use History: Marijuana Medications and Allergies Home Medications Medication Instructions Recorded Confirmed Type Aspirin 81 mg PO DAILY #30 tab 04/04/24 04/06/24 Rx Atorvastatin [Lipitor] 80 mg PO HS #30 tab 04/04/24 04/06/24 Rx Empagliflozin [Jardiance] 25 mg PO DAILY #30 tab 04/04/24 04/06/24 Rx Ezetimibe [Zetia] 10 mg PO DAILY #30 tab 04/04/24 04/06/24 Rx Losartan [Cozaar] 12.5 mg PO BID #30 tab 04/04/24 04/06/24 Rx Metoprolol Tartrate [Lopressor] 75 mg PO BID #180 tab 04/04/24 04/06/24 Rx Spironolactone [Aldactone] 12.5 mg PO DAILY #30 tab 04/04/24 04/06/24 Rx Ticagrelor [Brilinta] 90 mg PO BID #60 tab 04/04/24 04/06/24 Rx Acetaminophen Tab [Tylenol Tab] 1,000 mg PO Q6HR PRN 04/06/24 04/06/24 History Allergies Allergy/AdvReac Type Severity Reaction Status Date / Time No Known Allergies Allergy Verified 04/06/24 11:07 Physical Exam Vitals: Vital Signs Temp Pulse Pulse Pulse Resp BP BP 04/07/24 09:35 100.9 F H 04/07/24 08:00 98 18 04/07/24 07:00 98.9 F 98 18 113/66 04/07/24 04:25 101.0 F H 04/07/24 02:39 100.1 F H 77 16 109/59 04/06/24 23:03 100.5 F H 104 H 20 109/70 04/06/24 22:20 102.7 F H 04/06/24 20:57 99.2 F 91 18 04/06/24 19:24 100.1 F H 81 15 04/06/24 18:49 98.8 F 78 16 04/06/24 17:51 98.9 F 85 20 111/61 04/06/24 15:56 102.7 F H 04/06/24 13:06 100.1 F H 83 18 115/63 04/06/24 12:06 90 24 119/70 04/06/24 11:20 81 24 100/61 BP Pulse Ox 04/07/24 09:35 04/07/24 08:00 04/07/24 07:00 96 04/07/24 04:25 04/07/24 02:39 96 04/06/24 23:03 97 04/06/24 22:20 04/06/24 20:57 108/71 100 04/06/24 19:24 126/73 99 04/06/24 18:49 112/72 98 04/06/24 17:51 96 04/06/24 15:56 04/06/24 13:06 98 04/06/24 12:06 97 06/04/24 11:20 100 Intake and Output 04/06/24 04/07/24 04/07/24 22:59 06:59 14:59 Output Total 0 Balance 0 Output: Urine 0 Other: Voiding Method Toilet # Voids 2 Weight 122.47 kg Results 04/07/24 06:40 04/07/24 06:40 Cardiac Enzymes 04/06/24 04/06/24 04/06/24 Range/Units 11:15 11:15 19:07 AST 46 (17-59) U/L Troponin I 5.170 H* 5.380 H* (0.000-0.034) ng/mL 04/06/24 04/07/24 Range/Units 22:50 06:40 AST 35 (17-59) U/L Troponin I 4.210 H* (0.000-0.034) ng/mL CBC 04/06/24 04/07/24 Range/Units 11:15 06:40 WBC 13.5 H 16.58 H (3.8-10.6) k/uL RBC 4.46 3.83 L (4.30-5.90) m/uL Hgb 13.3 11.2 L (13.0-17.5) gm/dL Hct 40.4 33.6 L (39.0-53.0) % Plt Count 298 263 (150-450) k/uL Comprehensive Metabolic Panel 04/06/24 04/07/24 Range/Units 11:15 06:40 Sodium 132 L 129 L (137-145) mmol/L Potassium 3.6 3.0 L (3.5-5.1) mmol/L Chloride 102 95 L (98-107) mmol/L Carbon Dioxide 16 L 17.2 L (22-30) mmol/L BUN 14 13.1 (9-20) mg/dL Creatinine 1.15 1.3 (0.66-1.25) mg/dL Glucose 144 H 103 (74-99) mg/dL Calcium 9.1 8.8 (8.4-10.2) mg/dL AST 46 35 (17-59) U/L ALT 41 45 (4-49) U/L Alkaline Phosphatase 60 60 (38-126) U/L Total Protein 7.2 6.5 (6.3-8.2) g/dL Albumin 4.3 4.0 (3.5-5.0) g/dL Current Medications Generic Name Dose Route Start Last Admin Trade Name Freq PRN Reason Stop Dose Admin Acetaminophen 650 mg 04/06/24 15:07 04/07/24 05:55 Acetaminophen Tab 325 Mg Tab PO 650 mg Q6HR PRN Administration Mild Pain or Fever > 100.5 Hydrocodone Bitart/Acetaminophen 1 each 04/06/24 17:40 Hydrocodone/Apap 5-325mg 1 Each Tab PO Q4HR PRN Moderate Pain (Scale 4 to 6) Aspirin 81 mg 04/07/24 09:00 04/07/24 09:35 Aspirin 81 Mg PO 81 mg DAILY TIMOTHY Administration Atorvastatin Calcium 80 mg 04/06/24 21:00 04/06/24 20:48 Atorvastatin 80 Mg Tab PO 80 mg HS TIMOTHY Administration Dapagliflozin 10 mg 04/07/24 09:00 04/07/24 09:35 Dapagliflozin Propanediol 10 Mg Tablet PO 10 mg DAILY TIMOTHY Administration Ezetimibe 10 mg 04/07/24 09:00 04/07/24 09:35 Ezetimibe 10 Mg Tab PO 10 mg DAILY TIMOTHY Administration Heparin Sodium (Porcine) 5,000 unit 04/07/24 00:00 04/07/24 09:36 Heparin Sodium,Porcine 5,000 Unit/Ml 1 Ml Vial SQ 5,000 unit Q8HR TIMOTHY Administration Sodium Chloride 1,000 mls @ 75 mls/hr 04/07/24 11:15 Saline 0.9% IV .[id number] TIMOTHY Isosorbide Mononitrate 30 mg 04/06/24 21:30 04/07/24 09:35 Isosorbide Mononitrate Er 30 Mg Tab.Er.24h PO 30 mg DAILY TIMOTHY Administration Losartan Potassium 12.5 mg 04/06/24 21:00 04/07/24 09:35 Losartan 25 Mg Tab PO 12.5 mg BID TIMOTHY Administration Metoprolol Tartrate 75 mg 04/06/24 21:00 04/07/24 09:35 Metoprolol Tartrate 25 Mg Tab PO 75 mg BID TIMOTHY Administration Metronidazole 750 mg 04/07/24 05:00 04/07/24 05:55 Metronidazole 250 Mg Tablet PO 750 mg Q8H TIMOTHY Administration Protocol Morphine Sulfate 4 mg 04/06/24 17:40 04/06/24 20:57 Morphine Sulfate 4 Mg/Ml Syringe IV 4 mg Q4HR PRN Administration Severe Pain (Scale 7 to 10) Naloxone HCl 0.2 mg 04/06/24 15:07 Naloxone 0.4 Mg/Ml 1 Ml Vial IV Q2M PRN Opioid Reversal Nitroglycerin 0.4 mg 04/06/24 21:29 Nitroglycerin Sl Tabs 0.4 Mg Tab SUBLINGUAL Q5M PRN Chest Pain Ondansetron HCl 4 mg 04/06/24 17:40 Ondansetron 4 Mg/2 Ml Vial IVP Q8HR PRN Nausea And Vomiting Ticagrelor 90 mg 04/06/24 21:00 04/07/24 09:36 Ticagrelor 90 Mg Tab PO 90 mg BID TIMOTHY Administration Intake and Output 04/06/24 04/07/24 04/07/24 22:59 06:59 14:59 Output Total 0 Balance 0 Output: Urine 0 Other: Voiding Method Toilet # Voids 2 Weight 122.47 kg 04/07/24 06:40 04/07/24 06:40
[2024-04-07] MEDS: KETOROLAC 15 MG/ML 1 ML VIAL IVP STA ×2 (11:58→18:25)
[2024-04-07] MEDS: SODIUM CHLORIDE 0.9% 1,000 ML IV SCH (11:59)
[2024-04-07] MEDS: POTASSIUM CHLORIDE ER 20 MEQ TAB.ER PO STA (11:59)
[2024-04-07] MEDS: IOPAMIDOL CONTRAST (ORAL USE) VIAL PO PRN (15:47)
--- NOTE | 2024-04-07 17:18 | P.PN ---
Subjective Progress Note Date: 04/07/24 Hospital Course: Patient is a pleasant 39-year-old male with a past medical history of hypertension and recent STEMI on 04/02/24 who underwent successful stenting of LAD and was discharged home from hospital on 04/04/2024. He presented to the emergency department secondary to fevers, body aches, and mild nausea. Patient reports since being discharged from hospital on Friday was feeling at his baseline self but this morning awoke with significant chills, diaphoresis, fevers, and generalized bodyaches. He denies any exposure to known illness or ill contacts, dizziness, lightheadedness, chest pain or pressure, palpitations, shortness of breath, cough or congestion, abdominal pain, vomiting, diarrhea, or experiencing any changes in or difficulties with his urinary function. Upon arrival to our facility, patient underwent evaluation in the emergency depart ment. Vital signs upon arrival show blood pressure 113/71, heart rate 92, respiratory rate 20, temp 99.9 F, and SpO2 of 99% on room air. Temp continued to elevate in the emergency department up to 102.7 F despite administration of Tylenol. EKG showing normal sinus rhythm at 93 bpm with T wave inversion in lateral leads I, aVL, V5 and V6. Chest x-ray showing mild cardiomegaly and otherwise negative for acute cardiopulmonary process. Labs completed and reviewed. CBC showing leukocytosis with WBC count of 13.5. BMP showing hyponatremia with sodium of 132, hypocarbia with bicarb of 16, and mildly elevated anion gap of 14. Blood glucose 144. Lactic acid 2.2. Liver profile normal findings. Troponin was 5.170 and proBNP was 1470. Urinalysis positive for protein, glucose, ketones, nitrites, and 55 WBCs. Influenza A, influenza B, RSV, and COVID PCR were negative. Patient admitted under our services with consultation to cardiology. Physical exam: Patient seen and fully evaluated at bedside. Patient reports that he has been experiencing a few episodes of diarrhea over the past few days but did not think anything clinically significant until yesterday evening when he developed acute intractable diarrhea reporting yesterday evening around 6 PM felt sudden urge of impending diarrhea and states having 10-15 episodes of diarrhea overnight. Patient reports watery green diarrhea which is new from previous episodes he had experienced over the past few days stating he was experiencing loose stools. C. difficile culture was obtained overnight and was negative and patient was started on Flagyl 750 mg p.o. every 8 hours. Patient denies having any chest pain, palpitations, shortness of breath, abdominal pain/cramping/discomfort, nausea or vomiting, or any other complaints at this time. Vital signs reviewed and stable. General: Nontoxic, no distress and appears stated age. Derm: Skin warm and dry, normal coloration for ethnicity. Head: Atraumatic, normocephalic and symmetric. Eyes: EOMs intact, no lid lag, and anicteric sclera Mouth: no lip lesions, mucus membranes moist Cardiovascular: regular rate and rhythm with normal S1S2, no murmur, positive posterior tibial pulses bilaterally, and cap refill < 2 seconds. Cardiac cath access site right groin showing no signs of hematoma, erythema, or drainage. Lungs: Respirations even, regular, and unlabored on room air. Lungs CTA bilaterally, no rhonchi, no rales, no wheezing, and no accessory muscle usage. Abdominal: soft, nontender to palpation, no guarding, no appreciable organomegaly Ext: ROM intact. No gross muscle atrophy, no edema, no contractures Neuro: Speech clear, face symmetrical and CN II-XII grossly intact with no noted focal neuro deficits Psych: Alert and oriented to person, place, time, and situation. Appropriate and pleasant affect. Assessment and Plan of Care: Postinfarct fever, unclear etiology. Rule out myocarditis vs underlying gastroenteritis secondary to development of watery diarrhea. Recent STEMI on 04/02/24 Ischemic cardiomyopathy with EF of 35 to 40% Elevated troponins, secondary to recent STEMI and they are downtrending Sepsis with lactic acidosis on admission Hypertension -Cardiology consulted, reviewed documentation in chart -Previous Cardiac cath access site to right groin showing no signs of hematoma, erythema, or drainage. -Patient to remain on continuous telemetry monitoring -Troponins trended and are downtrending resulting at 5.170, 5.380, and 4.210. -Follow-up on blood culture results. Stool cultures pending. C. difficile was negative.. -ESR was 70 and CRP 6.3. -Cardiac diet -Continue cardiac medication regimen with aspirin 81 mg daily, atorvastatin 80 mg nightly, Jardiance 25 mg daily, Zetia 10 mg daily, losartan 12.5 mg twice daily, metoprolol 75 mg twice daily, and Brilinta 90 mg twice daily. -Aldactone held secondary to development of watery diarrhea and hyponatremia and need for gentle IV fluid hydration. -Echocardiogram to be completed. -Lactic acidosis resolved after IV fluid hydration with repeat lactate of 1.8. -Tylenol 650 mg every 6 hours as needed for mild pain/fever, [place] 5/325 mg tablets every 4 hours as needed for moderate pain, and morphine 4 mg IVP every 4 hours as needed for severe pain. -Zofran 4 mg IVP every 8 hours as needed for nausea and/or vomiting. Hyponatremia Hypokalemia Metabolic alkalosis -Likely secondary to reports of watery diarrhea. Aldactone held at this time and patient started on gentle IV fluid hydration with 0.9% normal saline at 75 cc/h. Order placed for K-Dur 40 mEq p.o. x 1 dose. -Monitor for improvement/resolution with repeat a.m. labs. Abnormal urinalysis -Patient denies urinary complaints including frequency, urgency, dysuria, or hematuria. Abnormal urinalysis likely due to asymptomatic bacteriuria -Patient received 1 dose of IV antibiotics with Rocephin in the emergency department, will hold off on further treatment of abnormal urinalysis unless patient becomes symptomatic of urinary complaints. Data and imaging reviewed: Troponins trended and are downtrending resulting at 5.170, 5.380, and 4.210. -Repeat morning labs show worsening of leukocytosis with WBC count of 16.58 and hemoglobin of 11.2. BMP showing worsening hyponatremia with sodium of 129, hypokalemia with potassium of 3.0 along with high anion gap metabolic alkalosis with chloride of 95, bicarb of 17.2, and anion gap of 16.80. -Vital signs reviewed. Blood pressure 113/66, heart rate 98, respiratory rate 18, temp 98.9 F, and SpO2 of 96% on room air. Patient continued to run el evated temps throughout the night and morning with temperature high of 102.7 F. CODE STATUS: Full Code DVT prophylaxis: Heparin Anticipated discharge date: Pending clinical course Anticipated discharge place: Home Patient was seen independently by Nurse Practitioner. This document was prepared using [email or web address] dictation software. Please allow for errors in developmental training counselor while rare they do occur. Alvarez De León NP rendered care for this patient independently, reviewed the findi ngs and plan as documented in the note above. I did not physically speak with or examine the patient on this date. Objective - Vital Signs Vital signs: Vital Signs Temp 98.9 F 04/07/24 07:00 Pulse 98 04/07/24 07:00 Resp 18 04/07/24 07:00 BP 113/66 04/07/24 07:00 Pulse Ox 96 04/07/24 07:00 FiO2 Intake & Output 04/06/24 04/07/24 04/07/24 18:59 06:59 18:59 Output Total 0 Balance 0 Weight 122.47 kg Output: Urine 0 Other: # Voids 2 - Labs CBC & Chem 7: 04/07/24 06:40 04/07/24 06:40 Labs: Abnormal Lab Results - Last 24 Hours (Table) 04/06/24 04/06/24 04/06/24 Range/Units 11:15 11:15 11:15 WBC 13.5 H (3.8-10.6) k/uL Neutrophils # 11.4 H (1.3-7.7) k/uL ESR (0-15) mm/Hr Sodium 132 L (137-145) mmol/L Carbon Dioxide 16 L (22-30) mmol/L Glucose 144 H (74-99) mg/dL Plasma Lactic Acid Sohan (0.7-2.0) mmol/L Troponin I (0.000-0.034) ng/mL C-Reactive Protein (<1.0) mg/dL Urine Protein 1+ H (Negative) Urine Glucose (UA) 4+ H (Negative) Urine Ketones 1+ H (Negative) Urine Blood Trace H (Negative) Ur Leukocyte Esterase Small H (Negative) Urine WBC 55 H (0-5) /hpf Urine WBC Clumps Few H (None) /hpf Urine Bacteria Occasional H (None) /hpf Urine Mucus Rare H (None) /hpf 04/06/24 04/06/24 04/06/24 Range/Units 11:15 11:15 11:15 WBC (3.8-10.6) k/uL Neutrophils # (1.3-7.7) k/uL ESR 70 H (0-15) mm/Hr Sodium (137-145) mmol/L Carbon Dioxide (22-30) mmol/L Glucose (74-99) mg/dL Plasma Lactic Acid Sohan 2.2 H* (0.7-2.0) mmol/L Troponin I 5.170 H* (0.000-0.034) ng/mL C-Reactive Protein (<1.0) mg/dL Urine Protein (Negative) Urine Glucose (UA) (Negative) Urine Ketones (Negative) Urine Blood (Negative) Ur Leukocyte Esterase (Negative) Urine WBC (0-5) /hpf Urine WBC Clumps (None) /hpf Urine Bacteria (None) /hpf Urine Mucus (None) /hpf 04/06/24 04/06/24 04/06/24 Range/Units 11:15 19:07 22:50 WBC (3.8-10.6) k/uL Neutrophils # (1.3-7.7) k/uL ESR (0-15) mm/Hr Sodium (137-145) mmol/L Carbon Dioxide (22-30) mmol/L Glucose (74-99) mg/dL Plasma Lactic Acid Sohan (0.7-2.0) mmol/L Troponin I 5.380 H* 4.210 H* (0.000-0.034) ng/mL C-Reactive Protein 6.3 H (<1.0) mg/dL Urine Protein (Negative) Urine Glucose (UA) (Negative) Urine Ketones (Negative) Urine Blood (Negative) Ur Leukocyte Esterase (Negative) Urine WBC (0-5) /hpf Urine WBC Clumps (None) /hpf Urine Bacteria (None) /hpf Urine Mucus (None) /hpf
--- NOTE | 2024-04-07 17:36 | CA ---
Transthoracic Echo Report Name: Chin Richey Age: 39 Gender: M : 1985 Exam Date: 04/07/2024 10:44 Exam Location: [place] [facility] Ht (in): 71 Wt (lb): 270 Ordering Physician: Karena Nelson DO Attending/Referring Phys: [id number], Omar Auriculotherapist Susan Lemus, ENOC Procedure CPT: Indications: fever, s/p heart cath Cardiac Hx: Technical Quality: Technically difficult study Contrast 1: Definity Total Dose (mL): 2 Contrast 2: Total Dose (mL): MEASUREMENTS (Male / Female) Normal Values 2D ECHO LV Diastolic Diameter PLAX 5.9 cm 4.2 - 5.9 / 3.9 - 5.3 cm LV Systolic Diameter PLAX 4.4 cm IVS Diastolic Thickness 1.1 cm 0.6 - 1.0 / 0.6 - 0.9 cm LVPW Diastolic Thickness 1.0 cm 0.6 - 1.0 / 0.6 - 0.9 cm LV Relative Wall Thickness 0.4 LV Diastolic Volume MOD BP 222.4 cm??? 67 - 155 / 56 - 104 cm??? LV Systolic Volume MOD BP 113.3 cm??? 22 - 58 / 19 - 49 cm??? LV Ejection Fraction MOD BP 49.1 % >= 55 % LV Cardiac Index MOD BP 4497.5 cm???/min???m??? LV Diastolic Volume MOD 4C 244.9 cm??? LV Systolic Volume MOD 4C 119.9 cm??? LV Ejection Fraction MOD 4C 51.1 % LV Cardiac Index MOD 4C 5150.5 cm???/min???m??? LV Diastolic Length 4C 10.3 cm LV Systolic Length 4C 8.8 cm LV Diastolic Volume MOD 2C 190.9 cm??? LV Systolic Volume MOD 2C 94.4 cm??? LV Ejection Fraction MOD 2C 50.6 % LV Cardiac Index MOD 2C 3975.1 cm???/min???m??? LV Diastolic Length 2C 9.6 cm LV Systolic Length 2C 7.8 cm M-MODE LV Diastolic Diameter MM 6.6 cm 4.2 - 5.9 / 3.9 - 5.3 cm LV Systolic Diameter MM 4.6 cm LV Cardiac Index MM Teich 5169.9 cm???/min???m??? IVS Diastolic Thickness MM 1.2 cm 0.6 - 1.0 / 0.6 - 0.9 cm LVPW Diastolic Thickness MM 1.0 cm 0.6 - 1.0 / 0.6 - 0.9 cm LV Relative Wall Thickness MM 0.3 0.24 - 0.42 / 0.22 - 0.42 LV Mass Index MM 132.5 g/m??? 49 - 115 / 43 - 95 g/m??? FINDINGS Left Ventricle Left ventricular ejection fraction is estimated at 50 %. Hypokinetic basal and mid anterior level, anterior Right Ventricle Right ventricle not well visualized. Right Atrium Right atrium not assessed. Left Atrium Left atrium not assessed. Mitral Valve Mitral valve not assessed. Aortic Valve Aortic valve not assessed. Tricuspid Valve Tricuspid valve not assessed. Pulmonic Valve Pulmonic valve not assessed. Pericardium No pericardial effusion. Aorta Aortic root and proximal ascending aorta not well visualized. CONCLUSIONS Technically suboptimal study secondary to poor echo windows Ischemic cardiomyopathy with an ejection fraction of 50 because Previewed by: Dr. Eze Delgado MD (Electronically Signed) Final Date: 07 April 2024 17:36
--- NOTE | 2024-04-07 18:10 | CT ---
EXAMINATION TYPE: CT abdomen pelvis w con CT DLP: 2330.6 mGycm, Automated exposure control for dose reduction was used. DATE OF EXAM: 04/07/2024 5:49 PM COMPARISON: None. CLINICAL INDICATION:Male, 39 years old with history of fever,diarrhea; Fever, diarrhea. TECHNIQUE: Axial CT abdomen pelvis w con;Sagittal and coronal reformats were created on a separate w orkstation. Contrast used:100 mL of Isovue 300 with IV Contrast, (none if empty) Oral contrast used: with Oral Contrast (none if empty) FINDINGS: LOWER CHEST: Unremarkable ABDOMEN LIVER: Unremarkable GALLBLADDER AND BILE DUCTS: Unremarkable. PANCREAS: Unremarkable. SPLEEN: Unremarkable. ADRENAL GLANDS: Unremarkable. KIDNEYS AND URETERS: No evidence of hydronephrosis or renal calculus. The ureters are unremarkable. PELVIS BLADDER: Unremarkable REPRODUCTIVE: Unremarkable. ABDOMEN & PELVIS STOMACH AND BOWEL: No evidence of bowel obstruction. Next appears surgically absent. PERITONEUM/RETROPERITONEUM: No evidence of pneumoperitoneum or free fluid. VASCULATURE: No evidence of aortic aneurysm. MUSCULOSKELETAL: No acute osseous abnormalities LYMPH NODES: No gross evidence for lymphadenopathy. SOFT TISSUE/ABDOMINAL WALL: Bilateral fatty changes to the inguinal canals with small fatty inguinal hernias. Anterior soft tissues injection changes. IMPRESSION: No evidence for acute abdominal process.
--- NOTE | 2024-04-07 22:49 | P.CONS ---
History of Present Illness - Reason for Consult Consult date: 04/07/24 Fever, leukocytosis Requesting physician: Kenia Olivarez - Chief Complaint Fever and diarrhea x few days - History of Present Illness Patient is a 39-year-old male with a past medical history significant for hypertension, hyperlipidemia obesity coronary disease recent ND in this patient who is status post PTCA and stenting to the LAD that was done on 04/02/20 the patient was subsequent discharged home patient now presenting back to the hospital yesterday morning concerning for fever and chills along with diffuse bodyaches patient symptoms started the day before presentation to the hospital with persistent symptoms the patient did came. Denies any headache or photophobia no URI symptoms no chest pain shortness of breath or cough some nausea but no vomiting no abdominal pain also complaining of significant diarrhea with multiple loose stools patient on presentation to the hospital did have low-grade fever subsequently spiked a fever of 102.7 F patient was nontachycardic hypotensive or hypoxic and no need for supplemental oxygen patient did have a white count of 13.5 which is up to 16.58 today creatinine is 1.3 troponin mildly elevated liver enzymes are normal influenza RSV and COVID testing has been negative blood culture obtained which are currently pending patient did have a chest x-ray mild cardiomegaly no acute processes seen patient was started on empiric Rocephin infectious was consulted this morning for further management because of his fever and elevated white count Review of Systems Positive point and negatives has been mentioned in the HPI, complete review of systems was performed and all other systems are negative Past Medical History Past Medical History: Hypertension, Myocardial Infarction (ND) Additional Past Medical History / Comment(s): dvt- right leg Last Myocardial Infarction Date:: 04/02/24 History of Any Multi-Drug Resistant Organisms: None Reported Past Surgical History: Appendectomy Additional Past Surgical History / Comment(s): right shoulder Additional Past Anesthesia/Blood Transfusion Reaction / Comm: difficulty coming out of anesthesia after shoulder surgery Past Psychological History: Depression Smoking Status: Never smoker Past Alcohol Use History: None Reported Past Drug Use History: Marijuana Medications and Allergies Home Medications Medication Instructions Recorded Confirmed Type Aspirin 81 mg PO DAILY #30 tab 04/04/24 04/06/24 Rx Atorvastatin [Lipitor] 80 mg PO HS #30 tab 04/04/24 04/06/24 Rx Empagliflozin [Jardiance] 25 mg PO DAILY #30 tab 04/04/24 04/06/24 Rx Ezetimibe [Zetia] 10 mg PO DAILY #30 tab 04/04/24 04/06/24 Rx Losartan [Cozaar] 12.5 mg PO BID #30 tab 04/04/24 04/06/24 Rx Metoprolol Tartrate [Lopressor] 75 mg PO BID #180 tab 04/04/24 04/06/24 Rx Spironolactone [Aldactone] 12.5 mg PO DAILY #30 tab 04/04/24 04/06/24 Rx Ticagrelor [Brilinta] 90 mg PO BID #60 tab 04/04/24 04/06/24 Rx Acetaminophen Tab [Tylenol] 1,000 mg PO Q6HR PRN 04/06/24 04/06/24 History Amoxic-Pot Clav 875-125Mg 1 tab PO Q12HR 10 Days #20 tab 04/09/24 Rx [Augmentin 875-125] Isosorbide Mononitrate ER [Imdur] 30 mg PO DAILY 30 Days #30 tab 04/09/24 Rx L.acidoph,Paracasei, B.lactis 1 each PO BID 10 Days #20 capsule 04/09/24 Rx [Probiotic] Pantoprazole [Protonix] 40 mg PO DAILY 30 Days #30 tab 04/09/24 Rx Allergies Allergy/AdvReac Type Severity Reaction Status Date / Time No Known Allergies Allergy Verified 04/06/24 11:07 Physical Exam Vitals: Vital Signs Temp Pulse Pulse Pulse Resp BP BP 04/07/24 09:35 100.9 F H 04/07/24 08:00 98 18 04/07/24 07:00 98.9 F 98 18 113/66 04/07/24 04:25 101.0 F H 04/07/24 02:39 100.1 F H 77 16 109/59 04/06/24 23:03 100.5 F H 104 H 20 109/70 04/06/24 22:20 102.7 F H 04/06/24 20:57 99.2 F 91 18 04/06/24 19:24 100.1 F H 81 15 04/06/24 18:49 98.8 F 78 16 04/06/24 17:51 98.9 F 85 20 111/61 04/06/24 15:56 102.7 F H 04/06/24 13:06 100.1 F H 83 18 115/63 04/06/24 12:06 90 24 119/70 BP Pulse Ox 04/07/24 09:35 04/07/24 08:00 04/07/24 07:00 96 04/07/24 04:25 04/07/24 02:39 96 04/06/24 23:03 97 04/06/24 22:20 04/06/24 20:57 108/71 100 04/06/24 19:24 126/73 99 04/06/24 18:49 112/72 98 04/06/24 17:51 96 04/06/24 15:56 04/06/24 13:06 98 04/06/24 12:06 97 Intake and Output 04/06/24 04/07/24 04/07/24 22:59 06:59 14:59 Output Total 0 Balance 0 Output: Urine 0 Other: Voiding Method Toilet # Voids 2 Weight 122.47 kg GENERAL DESCRIPTION: Middle-aged male lying in bed, no distress. No tachypnea or accessory muscle of respiration use. HEENT: Shows Pallor , no scleral icterus. Oral mucous membrane is dry. No pharyngeal erythema or thrush NECK: Trachea central, no thyromegaly. LUNGS: Unlabored breathing. Clear to auscultation anteriorly. No wheeze or crackle. HEART: S1, S2, regular rate and rhythm. No loud murmur ABDOMEN: Soft, no tenderness , guarding or rigidity, no organomegaly EXTREMITIES: No edema of feet. SKIN: No rash, no masses palpable. NEUROLOGICAL: The patient is awake, alert, oriented x3, mood and affect normal. Results CBC & Chem 7: 04/09/24 05:20 04/09/24 05:20 Labs: Abnormal Lab Results - Last 24 Hours (Table) 04/06/24 04/06/24 04/06/24 Range/Units 11:15 11:15 11:15 WBC (4.50-10.00) X 10*3/uL RBC (4.40-5.60) X 10*6/uL Hgb (13.0-17.0) g/dL Hct (39.6-50.0) % MPV (9.5-12.2) FL Immature Gran # (0.00-0.04) X 10*3/uL Neutrophils # (1.80-7.70) X 10*3/uL Monocytes # (0.20-1.00) X 10*3/uL Eosinophils # (0.04-0.35) X 10*3/uL ESR 70 H (0-15) mm/Hr Sodium (135-145) mmol/L Potassium (3.5-5.5) mmol/L Chloride (96-109) mmol/L Carbon Dioxide (21.6-31.8) mmol/L Anion Gap (4.00-12.00) mmol/L BUN/Creatinine Ratio (12.00-20.00) Ratio Troponin I (0.000-0.034) ng/mL C-Reactive Protein 6.3 H (<1.0) mg/dL Urine Protein 1+ H (Negative) Urine Glucose (UA) 4+ H (Negative) Urine Ketones 1+ H (Negative) Urine Blood Trace H (Negative) Ur Leukocyte Esterase Small H (Negative) Urine WBC 55 H (0-5) /hpf Urine WBC Clumps Few H (None) /hpf Urine Bacteria Occasional H (None) /hpf Urine Mucus Rare H (None) /hpf 04/06/24 04/06/24 04/07/24 Range/Units 19:07 22:50 06:40 WBC 16.58 H (4.50-10.00) X 10*3/uL RBC 3.83 L (4.40-5.60) X 10*6/uL Hgb 11.2 L (13.0-17.0) g/dL Hct 33.6 L (39.6-50.0) % MPV 9.3 L (9.5-12.2) FL Immature Gran # 0.07 H (0.00-0.04) X 10*3/uL Neutrophils # 12.92 H (1.80-7.70) X 10*3/uL Monocytes # 2.08 H (0.20-1.00) X 10*3/uL Eosinophils # 0 L (0.04-0.35) X 10*3/uL ESR (0-15) mm/Hr Sodium (135-145) mmol/L Potassium (3.5-5.5) mmol/L Chloride (96-109) mmol/L Carbon Dioxide (21.6-31.8) mmol/L Anion Gap (4.00-12.00) mmol/L BUN/Creatinine Ratio (12.00-20.00) Ratio Troponin I 5.380 H* 4.210 H* (0.000-0.034) ng/mL C-Reactive Protein (<1.0) mg/dL Urine Protein (Negative) Urine Glucose (UA) (Negative) Urine Ketones (Negative) Urine Blood (Negative) Ur Leukocyte Esterase (Negative) Urine WBC (0-5) /hpf Urine WBC Clumps (None) /hpf Urine Bacteria (None) /hpf Urine Mucus (None) /hpf 04/07/24 Range/Units 06:40 WBC (4.50-10.00) X 10*3/uL RBC (4.40-5.60) X 10*6/uL Hgb (13.0-17.0) g/dL Hct (39.6-50.0) % MPV (9.5-12.2) FL Immature Gran # (0.00-0.04) X 10*3/uL Neutrophils # (1.80-7.70) X 10*3/uL Monocytes # (0.20-1.00) X 10*3/uL Eosinophils # (0.04-0.35) X 10*3/uL ESR (0-15) mm/Hr Sodium 129 L (135-145) mmol/L Potassium 3.0 L (3.5-5.5) mmol/L Chloride 95 L (96-109) mmol/L Carbon Dioxide 17.2 L (21.6-31.8) mmol/L Anion Gap 16.80 H (4.00-12.00) mmol/L BUN/Creatinine Ratio 10.08 L (12.00-20.00) Ratio Troponin I (0.000-0.034) ng/mL C-Reactive Protein (<1.0) mg/dL Urine Protein (Negative) Urine Glucose (UA) (Negative) Urine Ketones (Negative) Urine Blood (Negative) Ur Leukocyte Esterase (Negative) Urine WBC (0-5) /hpf Urine WBC Clumps (None) /hpf Urine Bacteria (None) /hpf Urine Mucus (None) /hpf Assessment and Plan (1) Diarrhea Status: Acute Code(s): R19.7 - DIARRHEA, UNSPECIFIED SNOMED Code(s): 74470812 (2) Fever Status: Acute Code(s): R50.9 - FEVER, UNSPECIFIED SNOMED Code(s): 077934308 Plan: 1patient presented hospital with SIRS/sepsis in this patient who did have a fev er elevated white count with recent history of ND s/p PTCA and stenting to the LAD patient did have a chest x-ray that was negative for any pneumonia echocardiogram did not show any effusion patient main symptom remains to be diarrhea stool for C. difficile was negative and no evidence of any swelling or hematoma to the right groin area with a question of possible abdominal source 2-we will check a C. difficile PCR also check a stool culture 3-we will check CT of abdominal pelvis to rule out any abdominal pathology patient also elevated lung bases check a UA CRP and procalcitonin 4continue with empiric Rocephin at this point Multiple question concern answered We will follow on clinical condition and cultures to further adjust medication if needed Thank you for this consultation we will follow the patient along with you Dictation was produced using [employer] dictation software. please excuse any grammatical, word or spelling errors. Time with Patient: Greater than 30
[2024-04-07] MEDS: AMPICILLIN-SULBACTAM 3 GM in SODIUM CHLORIDE 0.9% 100 ML IVPB SCH (23:04)
[2024-04-08] MEDS: CALCIUM CARBONATE 500 MG CHEWABLE PO PRN (05:39)
--- NOTE | 2024-04-08 09:01 | P.PN ---
Subjective HISTORY OF PRESENT ILLNESS: This is a 39-year-old male with a past medical history significant for recent STEMI with PCI of the LAD, hypertension, hyperlipidemia, and morbid obesity. Patient follows in the office with Dr. Salazar. We have been asked to see the patient in consultation for elevated troponins. Patient examined at the bedside. Patient was recently admitted to the hospital secondary to STEMI on 04/02/2024. He underwent cardiac catheterization with PCI to the LAD. Patient presents back to the hospital with a chief complaint of fever and headache. Patient's troponin 5.170, 5.380, and 4.210 this admission which is down from a troponin peak of 42.4 denies any chest pain or pressure. He denies any shortness of breath. Patient's white count today 16.58. Continues to be febrile with a temperature of 101.0. Radial and femoral cath site with pulse present with no signs of infection. DIAGNOSTICS: - EKG reveals sinus mechanism with T wave inversions in lead I, V5, V6. - Chest xray mild cardiomegaly, appearance possibly due in part to large body habitus and technique. Correlate clinically. Otherwise no acute process seen.. - Laboratory data: WBC 16.58. Hemoglobin 11.2. Platelet count 263. Sodium 129. Potassium 3.0. BUN 13. Creatinine 1.3. - Current home cardiac medications include Brilinta 90 mg twice a day, Aldactone 12.5 mg daily, metoprolol titrate 75 mg twice a day, losartan 12.5 mg twice a day, Zetia 10 mg daily, Jardiance 25 mg daily, aspirin 81 mg daily, and Lipitor 80 mg at night. - Most recent echocardiogram obtained on April 03, 2024 ejection fraction 35 to 40%, apex hypokinetic, hypokinetic septum, trace MR, trace TR 04/08/2024 Patient examined this morning at the bedside. Patient currently denies chest pain or pressure. He denies shortness of breath. Patient remains febrile this morning. He remains on IV antibiotics. Patient underwent CT abdomen pelvis with no evidence of an acute process noted. PHYSICAL EXAM: VITAL SIGNS: Reviewed. GENERAL: Well-developed in no acute distress. HEENT: Head is normocephalic. Pupils are equal, round. Sclerae anicteric. Mucous membranes of the mouth are moist. Neck supple. No JVD or thyromegaly LUNGS: Respirations even and unlabored. Lungs essentially clear to auscultation bilaterally. HEART: Regular rate and rhythm. S1 and S2 heard. ABDOMEN: Soft. Nondistended. Nontender. EXTREMITIES: Normal range of motion. No clubbing or cyanosis. Peripheral pulses intact. No lower extremity edema NEUROLOGIC: Awake and alert. Oriented x 3. ASSESSMENT: Fever with leukocytosis Headache Coronary artery disease with recent STEMI with PCI to the LAD, 04/02/2024 Ischemic cardiomyopathy, EF 35 to 40% Hypertension Hyperlipidemia Morbid obesity: BMI 37.7 PLAN: An acute coronary event has been ruled out. Patient's elevated troponins are secondary to recent STEMI and are trending downward. Continue current cardiac medications Continue infectious workup per primary medicine and infectious disease Patient is currently stable from a cardiac perspective We will follow on an as-needed basis. Please call with questions or concerns. Nurse practitioner note has been reviewed by physician. Signing provider agrees with the documented findings, assessment, and plan of care documented by [employer]SEMBLER as a scribe. Objective - Vital Signs Vital signs: Vital Signs Temp 98.7 F 04/08/24 07:00 Pulse 98 04/08/24 07:00 Resp 20 04/08/24 07:00 BP 101/58 04/08/24 07:00 Pulse Ox 98 04/08/24 07:00 FiO2 Intake & Output 04/07/24 04/08/24 04/08/24 18:59 06:59 18:59 Intake Total 118 Balance 118 Intake: Oral 118 Other: Voiding Method Toilet Toilet # Voids 4 3 - Labs CBC & Chem 7: 04/07/24 06:40 04/07/24 06:40 Labs: Abnormal Lab Results - Last 24 Hours (Table) 04/07/24 04/07/24 04/07/24 Range/Units 06:40 06:40 14:35 WBC 16.58 H (4.50-10.00) X 10*3/uL RBC 3.83 L (4.40-5.60) X 10*6/uL Hgb 11.2 L (13.0-17.0) g/dL Hct 33.6 L (39.6-50.0) % MPV 9.3 L (9.5-12.2) FL Immature Gran # 0.07 H (0.00-0.04) X 10*3/uL Neutrophils # 12.92 H (1.80-7.70) X 10*3/uL Monocytes # 2.08 H (0.20-1.00) X 10*3/uL Eosinophils # 0 L (0.04-0.35) X 10*3/uL Sodium 129 L (135-145) mmol/L Potassium 3.0 L (3.5-5.5) mmol/L Chloride 95 L (96-109) mmol/L Carbon Dioxide 17.2 L (21.6-31.8) mmol/L Anion Gap 16.80 H (4.00-12.00) mmol/L BUN/Creatinine Ratio 10.08 L (12.00-20.00) Ratio Stool Lactoferrin Positive A (Negative) Microbiology - Last 24 Hours (Table) 04/06/24 11:10 Blood Culture - Preliminary Blood 04/06/24 11:35 Blood Culture - Preliminary Blood
[2024-04-08 09:48] LABS: HCT 35.6 % (39.6-50.0); HGB 11.7 g/dL (13.0-17.0); MCH 28.9 pg (27.0-32.0); MCHC 32.9 g/dL (32.0-37.0); MCV 87.9 FL (80.0-97.0); Mean Platelet Volume 9.4 FL (9.5-12.2); NRBC Per 100 WBC 0 X 10*3/uL (0.00-0.01); Platelet Count 300 X 10*3/uL (140-440); RBC 4.05 X 10*6/uL (4.40-5.60); RDW 13.6 % (11.5-14.5); WBC 12.49 X 10*3/uL (4.50-10.00)
[2024-04-08 09:59] LABS: ALT 56 U/L (10-49); AST 38 U/L (14-35); Albumin 4.1 g/dL (3.8-4.9); Albumin/Globulin Ratio 1.52 Ratio (1.60-3.17); Alkaline Phosphatase 61 U/L (41-126); BUN/Creat Ratio 10.08 Ratio (12.00-20.00); Blood Urea Nitrogen 13.1 mg/dL (9.0-27.0); Calcium 8.9 mg/dL (8.7-10.3); Carbon Dioxide 15.9 mmol/L (21.6-31.8); Chloride 99 mmol/L (96-109); Globulin 2.7 g/dL (1.6-3.3); Glucose 94 mg/dL (70-110); Potassium 3.5 mmol/L (3.5-5.5); Sodium 135 mmol/L (135-145); Total Bilirubin 0.3 mg/dL (0.3-1.2); Total Protein 6.8 g/dL (6.2-8.2)
--- NOTE | 2024-04-08 16:39 | P.PN ---
Subjective Progress Note Date: 04/08/24 Hospital Course: Patient is a pleasant 39-year-old male with a past medical history of hypertension and recent STEMI on 04/02/24 who underwent successful stenting of LAD and was discharged home from hospital on 04/04/2024. He presented to the emergency department secondary to fevers, body aches, and mild nausea. Patient reports since being discharged from hospital on Friday was feeling at his baseline self but this morning awoke with significant chills, diaphoresis, fevers, and generalized bodyaches. He denies any exposure to known illness or ill contacts, dizziness, lightheadedness, chest pain or pressure, palpitations, shortness of breath, cough or congestion, abdominal pain, vomiting, diarrhea, or experiencing any changes in or difficulties with his urinary function. Upon arrival to our facility, patient underwent evaluation in the emergency depart ment. Vital signs upon arrival show blood pressure 113/71, heart rate 92, respiratory rate 20, temp 99.9 F, and SpO2 of 99% on room air. Temp continued to elevate in the emergency department up to 102.7 F despite administration of Tylenol. EKG showing normal sinus rhythm at 93 bpm with T wave inversion in lateral leads I, aVL, V5 and V6. Chest x-ray showing mild cardiomegaly and otherwise negative for acute cardiopulmonary process. Labs completed and reviewed. CBC showing leukocytosis with WBC count of 13.5. BMP showing hyponatremia with sodium of 132, hypocarbia with bicarb of 16, and mildly elevated anion gap of 14. Blood glucose 144. Lactic acid 2.2. Liver profile normal findings. Troponin was 5.170 and proBNP was 1470. Urinalysis positive for protein, glucose, ketones, nitrites, and 55 WBCs. Influenza A, influenza B, RSV, and COVID PCR were negative. Patient admitted under our services with consultation to cardiology. Physical exam: Patient seen and fully evaluated at bedside. He continues to have reports of liquid diarrhea but reports it has improved in frequency and states only 2 episodes overnight. He continues to deny having any complaints plaints of pain or discomfort. He reports the only time he experiences pain is when he notices that his temperature is elevating and he begins getting uncontrolled shivering accompanied by generalized body ache/pain and chest tightness. Vital signs reviewed and stable. General: Nontoxic, no distress and appears stated age. Derm: Skin warm and dry, normal coloration for ethnicity. Head: Atraumatic, normocephalic and symmetric. Eyes: EOMs intact, no lid lag, and anicteric sclera Mouth: no lip lesions, mucus membranes moist Cardiovascular: regular rate and rhythm with normal S1S2, no murmur, positive posterior tibial pulses bilaterally, and cap refill < 2 seconds. Cardiac cath access site right groin showing no signs of hematoma, erythema, or drainage. Lungs: Respirations even, regular, and unlabored on room air. Lungs CTA bilaterally, no rhonchi, no rales, no wheezing, and no accessory muscle usage. Abdominal: soft, nontender to palpation, no guarding, no appreciable organomegaly Ext: ROM intact. No gross muscle atrophy, no edema, no contractures Neuro: Speech clear, face symmetrical and CN II-XII grossly intact with no noted focal neuro deficits Psych: Alert and oriented to person, place, time, and situation. Appropriate and pleasant affect. Assessment and Plan of Care: Postinfarct fever, unclear etiology. Rule out myocarditis vs underlying gastroenteritis secondary to development of watery diarrhea. Recent STEMI on 04/02/24 Ischemic cardiomyopathy with EF of 35 to 40% Elevated troponins, secondary to recent STEMI and they are downtrending Sepsis with lactic acidosis on admission Hypertension -Cardiology consulted, reviewed documentation in chart -Previous Cardiac cath access site to right groin showing no signs of hematoma, erythema, or drainage. -Patient to remain on continuous telemetry monitoring -Troponins trended and down trended resulting at 5.170, 5.380, and 4.210. -Blood cultures currently showing no growth to date. Will follow-up on final blood culture results. Stool cultures pending. C. difficile was negative and stool lactoferrin was positive. Procalcitonin elevated at 0.95 and CRP increasing from previous 6.3 up to 28.4 this morning. -CT abdomen and pelvis was negative for acute intra-abdominal process -Continue cardiac medication regimen with aspirin 81 mg daily, atorvastatin 80 mg nightly, Jardiance 25 mg daily, Zetia 10 mg daily, losartan 12.5 mg twice daily, metoprolol 75 mg twice daily, and Brilinta 90 mg twice daily. -Aldactone held secondary to development of watery diarrhea and hyponatremia and need for gentle IV fluid hydration. -Echocardiogram was completed showing a preserved EF of 50% -Tylenol 650 mg every 6 hours as needed for mild pain/fever, [place] 5/325 mg tablets every 4 hours as needed for moderate pain, and morphine 4 mg IVP every 4 hours as needed for severe pain. -Zofran 4 mg IVP every 8 hours as needed for nausea and/or vomiting. -Infectious disease following, discussed plan of care in depth with infectious disease physician, Dr. Fowler and patient started on Unasyn in addition to oral Flagyl. Hyponatremia Hypokalemia Metabolic alkalosis -Likely secondary to reports of watery diarrhea. Aldactone held at this time and patient started on gentle IV fluid hydration with 0.9% normal saline at 75 cc/h. Order placed for K-Dur 40 mEq p.o. x 1 dose. -Monitor for improvement/resolution with repeat a.m. labs. Abnormal urinalysis -Patient denies urinary complaints including frequency, urgency, dysuria, or hematuria. Abnormal urinalysis likely due to asymptomatic bacteriuria. -Patient received 1 dose of IV antibiotics with Rocephin in the emergency department, will hold off on further treatment of abnormal urinalysis unless patient becomes symptomatic of urinary complaints. Data and imaging reviewed: -Blood cultures currently showing no growth to date. -Stool cultures pending. Repeat C. difficile was again negative and stool lactoferrin was positive. -Procalcitonin elevated at 0.95 and CRP increasing from previous 6.3 up to 28.4 this morning. -CBC showing leukocytosis with WBC count of 12.49 and stable normocytic anemia with hemoglobin of 11.7. BMP showing high anion gap metabolic alkalosis with chloride of 99, bicarb 15.9 and anion gap of 20.10. Renal function remains unr emarkable. Liver profile showing elevated AST of 38 and ALT of 56. -Vital signs reviewed. Blood pressure currently 101/58, heart rate 98, respiratory rate 20, temp 98.7 F, and SpO2 of 98% on room air. Temperature high over the past 24 hours is 103.0 F. -CT abdomen and pelvis was dated and radiology report reviewed stating negative for acute intra-abdominal process CODE STATUS: Full Code DVT prophylaxis: Heparin Anticipated discharge date: Pending clinical course Anticipated discharge place: Home Patient was seen independently by Nurse Practitioner. This document was prepared using [employer] dictation software. Please allow for errors in tuft machine operator while rare they do occur. Alvarez De León NP rendered care for this patient independently, reviewed the findings and plan as documented in the note above. I did not physically speak with or examine the patient on this date. Objective - Vital Signs Vital signs: Vital Signs Temp 98.7 F 04/08/24 07:00 Pulse 98 04/08/24 07:00 Resp 20 04/08/24 07:00 BP 101/58 04/08/24 07:00 Pulse Ox 98 04/08/24 07:00 FiO2 Intake & Output 04/07/24 04/08/24 04/08/24 18:59 06:59 18:59 Intake Total 118 Balance 118 Intake: Oral 118 Other: Voiding Method Toilet Toilet # Voids 4 3 - Labs CBC & Chem 7: 04/09/24 05:20 04/09/24 05:20 Labs: Abnormal Lab Results - Last 24 Hours (Table) 04/07/24 04/07/24 04/07/24 Range/Units 06:40 06:40 14:35 WBC 16.58 H (4.50-10.00) X 10*3/uL RBC 3.83 L (4.40-5.60) X 10*6/uL Hgb 11.2 L (13.0-17.0) g/dL Hct 33.6 L (39.6-50.0) % MPV 9.3 L (9.5-12.2) FL Immature Gran # 0.07 H (0.00-0.04) X 10*3/uL Neutrophils # 12.92 H (1.80-7.70) X 10*3/uL Monocytes # 2.08 H (0.20-1.00) X 10*3/uL Eosinophils # 0 L (0.04-0.35) X 10*3/uL Sodium 129 L (135-145) mmol/L Potassium 3.0 L (3.5-5.5) mmol/L Chloride 95 L (96-109) mmol/L Carbon Dioxide 17.2 L (21.6-31.8) mmol/L Anion Gap 16.80 H (4.00-12.00) mmol/L BUN/Creatinine Ratio 10.08 L (12.00-20.00) Ratio Stool Lactoferrin Positive A (Negative) Microbiology - Last 24 Hours (Table) 04/06/24 11:10 Blood Culture - Preliminary Blood 04/06/24 11:35 Blood Culture - Preliminary Blood
[2024-04-08] MEDS: HYDROcodone/APAP 5-325MG 1 EACH TAB PO PRN (16:49)
--- NOTE | 2024-04-08 17:19 | P.PN ---
Subjective Progress Note Date: 04/08/24 Principal diagnosis: Reason for follow-up is fever and diarrhea Patient is a 39-year-old male with a past medical history significant for hypertension, hyperlipidemia obesity coronary disease recent OK in this patient who is status post PTCA and stenting to the LAD that was done on 04/02/2024 presenting back to the hospital with diarrhea fever with rigors and chills. On today's evaluation that is 04/08/2024, Patient did have improvement in the fever creatinine last temperature has been 101.3 F at 5 AM however the patient is afebrile since then patient is currently on room air and denies having any shortness of breath, the patient denies any chest pain or cough, the patient denies any nausea vomiting did not have any abdominal pain and diarrhea has slowed down. Patient white count down to 12.49, creatinine is 1.3 C. difficile PCR negative Objective - Vital Signs Vital signs: Vital Signs Temp 98.7 F 04/08/24 07:00 Pulse 98 04/08/24 07:00 Resp 20 04/08/24 07:00 BP 101/58 04/08/24 07:00 Pulse Ox 98 04/08/24 07:00 FiO2 Intake & Output 04/07/24 04/08/24 04/08/24 18:59 06:59 18:59 Intake Total 118 236 Balance 118 236 Intake: Oral 118 236 Other: Voiding Method Toilet Toilet # Voids 4 3 - Exam GENERAL DESCRIPTION: Middle-age male lying in bed in no distress RESPIRATORY SYSTEM: Unlabored breathing , decreased breath sounds at bases HEART: S1 S2 regular rate and rhythm , ABDOMEN: Soft , no tenderness EXTREMITIES: No edema feet - Labs CBC & Chem 7: 04/08/24 04:31 04/08/24 04:31 Labs: Abnormal Lab Results - Last 24 Hours (Table) 04/07/24 04/08/24 04/08/24 Range/Units 14:35 04:31 04:31 WBC 12.49 H (4.50-10.00) X 10*3/uL RBC 4.05 L (4.40-5.60) X 10*6/uL Hgb 11.7 L (13.0-17.0) g/dL Hct 35.6 L (39.6-50.0) % MPV 9.4 L (9.5-12.2) FL Carbon Dioxide 15.9 L (21.6-31.8) mmol/L Anion Gap 20.10 H (4.00-12.00) mmol/L BUN/Creatinine Ratio 10.08 L (12.00-20.00) Ratio AST 38 H (14-35) U/L ALT 56 H (10-49) U/L C-Reactive Protein 28.40 H (0.00-0.80) mg/dL Albumin/Globulin Ratio 1.52 L (1.60-3.17) Ratio Procalcitonin (0.02-0.09) ng/mL Stool Lactoferrin Positive A (Negative) 04/08/24 Range/Units 04:31 WBC (4.50-10.00) X 10*3/uL RBC (4.40-5.60) X 10*6/uL Hgb (13.0-17.0) g/dL Hct (39.6-50.0) % MPV (9.5-12.2) FL Carbon Dioxide (21.6-31.8) mmol/L Anion Gap (4.00-12.00) mmol/L BUN/Creatinine Ratio (12.00-20.00) Ratio AST (14-35) U/L ALT (10-49) U/L C-Reactive Protein (0.00-0.80) mg/dL Albumin/Globulin Ratio (1.60-3.17) Ratio Procalcitonin 0.95 H (0.02-0.09) ng/mL Stool Lactoferrin (Negative) Microbiology - Last 24 Hours (Table) 04/06/24 11:10 Blood Culture - Preliminary Blood 04/06/24 11:35 Blood Culture - Preliminary Blood Assessment and Plan (1) Diarrhea Current Visit: Yes Status: Acute Code(s): R19.7 - DIARRHEA, UNSPECIFIED SNOMED Code(s): 12299930 (2) Fever Current Visit: Yes Status: Acute Code(s): R50.9 - FEVER, UNSPECIFIED S NOMED Code(s): 090808602 Plan: 1patient presented hospital with SIRS/sepsis in this patient who did have a fever elevated white count with recent history of OK s/p PTCA and stenting to the LAD patient did have a chest x-ray that was negative for any pneumonia echocardiogram did not show any effusion patient main symptom remains to be diarrhea stool for C. difficile was negative and no evidence of any swelling or hematoma to the right groin area with a question of possible abdominal source 2-C. difficile PCR came back negative stool culture currently pending 3- CT of abdominal pelvis did not show any acute abnormality 4patient fever and symptoms responded to Unasyn to continue while waiting for the culture to finalize Multiple question concern answered Dictation was produced using [employer] dictation software. please excuse any grammatical, word or spelling errors. Time with Patient: Less than 30
[2024-04-09 08:24] LABS: Basophils # (A) 0.05 X 10*3/uL (0.00-0.10); Basophils % (A) 0.7 %; Eosinophils # (A) 0.05 X 10*3/uL (0.04-0.35); Eosinophils % (A) 0.7 %; HCT 32.4 % (39.6-50.0); HGB 10.9 g/dL (13.0-17.0); Lymphocytes # (A) 1.92 X 10*3/uL (0.90-5.00); Lymphocytes % (A) 26.6 %; MCH 29.1 pg (27.0-32.0); MCHC 33.6 g/dL (32.0-37.0); MCV 86.4 FL (80.0-97.0); Mean Platelet Volume 9.2 FL (9.5-12.2); Monocytes # (A) 1.08 X 10*3/uL (0.20-1.00); NRBC Per 100 WBC 0 X 10*3/uL (0.00-0.01); Neutrophils # (A) 4.06 X 10*3/uL (1.80-7.70); Neutrophils % (A) 56.3 %; Platelet Count 272 X 10*3/uL (140-440); RBC 3.75 X 10*6/uL (4.40-5.60); RDW 13.8 % (11.5-14.5); WBC 7.21 X 10*3/uL (4.50-10.00)
[2024-04-09 09:09] VITALS: BP 102/59; PULSE 73; RESP 18; TEMP 98.3
[2024-04-09 09:09] LABS: BUN/Creat Ratio 7.56 Ratio (12.00-20.00); Blood Urea Nitrogen 6.8 mg/dL (9.0-27.0); Chloride 102 mmol/L (96-109); Glucose 89 mg/dL (70-110); Potassium 3.3 mmol/L (3.5-5.5); Sodium 137 mmol/L (135-145)
[2024-04-09 09:10] LABS: ALT 42 U/L (10-49); AST 27 U/L (14-35); Albumin 3.6 g/dL (3.8-4.9); Albumin/Globulin Ratio 1.64 Ratio (1.60-3.17); Alkaline Phosphatase 48 U/L (41-126); Calcium 8.6 mg/dL (8.7-10.3); Carbon Dioxide 20.8 mmol/L (21.6-31.8); Globulin 2.2 g/dL (1.6-3.3); Total Bilirubin 0.2 mg/dL (0.3-1.2); Total Protein 5.8 g/dL (6.2-8.2)
[2024-04-09] MEDS: POTASSIUM CHLORIDE ER 20 MEQ TAB.ER PO STA (10:30)
--- NOTE | 2024-04-09 12:18 | P.DS ---
Providers Date of admission: 04/06/24 15:17 Expected date of discharge: 04/09/24 Attending physician: Octavio Lorenzana MD Consults: 04/07/24 10:59 Consult Physician Routine Consulting Provider: Jose Fowler Consult Reason/Comments: fever, leukocytosis Do you want consulting provider notified?: Yes Primary care physician: Lloyd Mayes Hospital Course: Discharge Diagnosis: Postinfarct fever, unclear etiology. Believed to be secondary to underlying gastroenteritis secondary to development of watery diarrhea. Recent STEMI on 04/02/24 Ischemic cardiomyopathy with EF of 35 to 40% Elevated troponins, secondary to recent STEMI and they are downtrending Sepsis with lactic acidosis on admission Hypertension Hyponatremia Hypokalemia Metabolic alkalosis Abnormal urinalysis, asymptomatic bacteriuria Hospital Course: Patient is a pleasant 39-year-old male with a past medical history of hypertension and recent STEMI on 04/02/24 who underwent successful stenting of LAD and was discharged home from hospital on 04/04/2024. He presented to the emergency department secondary to fevers, body aches, and mild nausea. Patient reports since being discharged from hospital on Friday was feeling at his baseline self but this morning awoke with significant chills, diaphoresis, fevers, and generalized bodyaches. He denies any exposure to known illness or ill contacts, dizziness, lightheadedness, chest pain or pressure, palpitations, shortness of breath, cough or congestion, abdominal pain, vomiting, diarrhea, or experiencing any changes in or difficulties with his urinary function. Upon arrival to our facility, patient underwent evaluation in the emergency department. Vital signs upon arrival show blood pressure 113/71, heart rate 92, respiratory rate 20, temp 99.9 F, and SpO2 of 99% on room air. Temp continued to elevate in the emergency department up to 102.7 F despite administration of Tylenol. EKG showing normal sinus rhythm at 93 bpm with T wave inversion in lateral leads I, aVL, V5 and V6. Chest x-ray showing mild cardiomegaly and otherwise negative for acute cardiopulmonary process. Labs completed and reviewed. CBC showing leukocytosis with WBC count of 13.5. BMP showing hyponatremia with sodium of 132, hypocarbia with bicarb of 16, and mildly elevated anion gap of 14. Blood glucose 144. Lactic acid 2.2. Liver profile normal findings. Troponin was 5.170 and proBNP was 1470. Urinalysis positive for protein, glucose, ketones, nitrites, and 55 WBCs. Influenza A, influenza B, RSV, and COVID PCR were negative. Patient admitted under our services with consultation to cardiology and infectious disease.. Patient continued to have elevated temps and developed multiple episodes of watery diarrhea. C. difficile toxin was negative. Stool lactoferrin was positive. CT abdomen and pelvis was negative for acute intra-abdominal process diarrhea subsided, leukocytosis resolved. Patient has remained afebrile for greater than 24 hours. He denies any complaints at this time. Discussed with infectious disease physician, patient to be discharged home on Augmentin 875/125 mg tablets p.o. every 12 hours for an additional 10 days. Addition patient was discharged home on Protonix 40 mg daily and probiotic twice daily for the next 10 days. Cardiology evaluated and also started patient on isosorbide mononitrate 30 mg daily. Patient cleared from infectious disease perspective and cardiology perspective. He is medically stable for discharge at this time. Patient to follow-up with PCP in 1 to 2 days and with director surgical in 1 week. Physical exam: Vital signs reviewed and stable. General: Nontoxic, no distress and appears stated age. Derm: Skin warm and dry, normal coloration for ethnicity. Head: Atraumatic, normocephalic and symmetric. Eyes: EOMs intact, no lid lag, and anicteric sclera Mouth: no lip lesions, mucus membranes moist Cardiovascular: regular rate and rhythm with normal S1S2, no murmur, positive posterior tibial pulses bilaterally, and cap refill < 2 seconds. Cardiac cath access site right groin showing no signs of hematoma, erythema, or drainage. Lungs: Respirations even, regular, and unlabored on room air. Lungs CTA bilaterally, no rhonchi, no rales, no wheezing, and no accessory muscle usage. Abdominal: soft, nontender to palpation, no guarding, no appreciable organomegaly Ext: ROM intact. No gross muscle atrophy, no edema, no contractures Neuro: Speech clear, face symmetrical and CN II-XII grossly intact with no noted focal neuro deficits Psych: Alert and oriented to person, place, time, and situation. Appropriate and pleasant affect. A total of 33 minutes of time were spent preparing this complex discharge summary. Pt was discharged on 04/09/2024 at 11:54 AM Patient was seen independently by Nurse Practitioner. This document was prepared using [employer] dictation software. Please allow for errors in head pastry chef while rare they do occur. Alvarez De León NP rendered care for this patient independently, reviewed the findings and plan as documented in the note above. I did not physically speak with or examine the patient on this date. Patient Condition at Discharge: Stable Plan - Discharge Summary Discharge Rx Participant: No New Discharge Prescriptions: New Isosorbide Mononitrate ER [Imdur] 30 mg PO DAILY 30 Days #30 tab L.acidoph,Paracasei, B.lactis [Probiotic] 1 each PO BID 10 Days #20 capsule Amoxic-Pot Clav 875-125Mg [Augmentin 875-125] 1 tab PO Q12HR 10 Days #20 tab Pantoprazole [Protonix] 40 mg PO DAILY 30 Days #30 tab Continue Spironolactone [Aldactone] 12.5 mg PO DAILY #30 tab Ticagrelor [Brilinta] 90 mg PO BID #60 tab Empagliflozin [Jardiance] 25 mg PO DAILY #30 tab Aspirin 81 mg PO DAILY #30 tab Losartan [Cozaar] 12.5 mg PO BID #30 tab Atorvastatin [Lipitor] 80 mg PO HS #30 tab Metoprolol Tartrate [Lopressor] 75 mg PO BID #180 tab Ezetimibe [Zetia] 10 mg PO DAILY #30 tab Acetaminophen Tab [Tylenol] 1,000 mg PO Q6HR PRN PRN Reason: Pain Or Fever > 100.5 Discharge Medication List Aspirin 81 mg PO DAILY #30 tab 04/04/24 [Rx] Atorvastatin [Lipitor] 80 mg PO HS #30 tab 04/04/24 [Rx] Empagliflozin [Jardiance] 25 mg PO DAILY #30 tab 04/04/24 [Rx] Ezetimibe [Zetia] 10 mg PO DAILY #30 tab 04/04/24 [Rx] Losartan [Cozaar] 12.5 mg PO BID #30 tab 04/04/24 [Rx] Metoprolol Tartrate [Lopressor] 75 mg PO BID #180 tab 04/04/24 [Rx] Spironolactone [Aldactone] 12.5 mg PO DAILY #30 tab 04/04/24 [Rx] Ticagrelor [Brilinta] 90 mg PO BID #60 tab 04/04/24 [Rx] Acetaminophen Tab [Tylenol] 1,000 mg PO Q6HR PRN 04/06/24 [History] Amoxic-Pot Clav 875-125Mg [Augmentin 875-125] 1 tab PO Q12HR 10 Days #20 tab 04/09/24 [Rx] Isosorbide Mononitrate ER [Imdur] 30 mg PO DAILY 30 Days #30 tab 04/09/24 [Rx] L.acidoph,Paracasei, B.lactis [Probiotic] 1 each PO BID 10 Days #20 capsule 04/09/24 [Rx] Pantoprazole [Protonix] 40 mg PO DAILY 30 Days #30 tab 04/09/24 [Rx] Follow up Appointment(s)/Referral(s): Lloyd Mayes MD [Primary Care Provider] - 1-2 days Lucho Salazar MD [STAFF PHYSICIAN] - 1 Week Jose Fowler MD [STAFF PHYSICIAN] - 10 Days Patient Instructions/Handouts: Gastritis (DC), Urinary Tract Infection in Men (DC) Activity/Diet/Wound Care/Special Instructions: Activity: As tolerated. Take breaks as needed. Diet: Heart healthy and carb consistent diet. Avoid salts, or foods with hidden salts such as canned or boxed foods and frozen dinners. Extra salt makes your heart work harder and traps the fluid in your body for longer. Special Instructions: Take all of your medications as directed and remember to keep all of your doctor's appointments and follow-up as needed. Thank you for allowing us to participate in your care, it was truly a pleasure having you for our patient!!! Discharge Disposition: HOME SELF-CARE
--- NOTE | 2024-04-09 20:22 | P.PN ---
Subjective Progress Note Date: 04/09/24 Principal diagnosis: Reason for follow-up is fever and diarrhea Patient is a 39-year-old male with a past medical history significant for hypertension, hyperlipidemia obesity coronary disease recent KS in this patient who is status post PTCA and stenting to the LAD that was done on 04/02/2024 presenting back to the hospital with diarrhea fever with rigors and chills. On today's evaluation that is 04/09/2024, patient has been afebrile, patient is breathing comfortably and is currently on room air, patient denies having any significant cough no chest pain shortness of breath, patient denies nausea vomiting or abdominal pain and diarrhea has slowed down mention slightly forming of stool. Patient white count normalized to 7.21 creatinine 0.9 culture has been negative so far Objective - Vital Signs Vital signs: Vital Signs Temp 98.3 F 04/09/24 08:00 Pulse 73 04/09/24 08:00 Resp 18 04/09/24 08:00 BP 102/59 04/09/24 08:00 Pulse Ox 96 04/09/24 08:00 FiO2 Intake & Output 04/08/24 04/09/24 04/09/24 18:59 06:59 18:59 Intake Total 1054 0 Balance 1054 0 Intake: Intake, IV Titration 700 Amount Ampicillin-Sulbactam 3 gm 100 In Sodium Chloride 0.9% 100 ml @ 200 mls/hr IVPB Q6HR [facility] Rx#:[id number] Sodium Chloride 0.9% 1, 600 000 ml @ 75 mls/hr IV . [id number] [facility] Rx#:[id number] Oral 354 0 Other: Voiding Method Toilet # Voids 1 - Exam GENERAL DESCRIPTION: Middle-age male lying in bed in no distress RESPIRATORY SYSTEM: Unlabored breathing , decreased breath sounds at bases HEART: S1 S2 regular rate and rhythm , ABDOMEN: Soft , no tenderness EXTREMITIES: No edema feet - Labs CBC & Chem 7: 04/09/24 05:20 04/09/24 05:20 Labs: Abnormal Lab Results - Last 24 Hours (Table) 04/07/24 04/09/24 04/09/24 Range/Units 01:45 05:20 05:20 RBC 3.75 L (4.40-5.60) X 10*6/uL Hgb 10.9 L (13.0-17.0) g/dL Hct 32.4 L (39.6-50.0) % MPV 9.2 L (9.5-12.2) FL Immature Gran # 0.05 H (0.00-0.04) X 10*3/uL Monocytes # 1.08 H (0.20-1.00) X 10*3/uL Potassium 3.3 L (3.5-5.5) mmol/L Carbon Dioxide 20.8 L (21.6-31.8) mmol/L Anion Gap 14.20 H (4.00-12.00) mmol/L BUN 6.8 L (9.0-27.0) mg/dL BUN/Creatinine Ratio 7.56 L (12.00-20.00) Ratio Calcium 8.6 L (8.7-10.3) mg/dL Total Bilirubin 0.2 L (0.3-1.2) mg/dL C-Reactive Protein 15.40 H (0.00-0.80) mg/dL Total Protein 5.8 L (6.2-8.2) g/dL Albumin 3.6 L (3.8-4.9) g/dL Stool Calprotectin 50.7 H (<50) mcg/g Microbiology - Last 24 Hours (Table) 04/06/24 11:10 Blood Culture - Preliminary Blood 04/06/24 11:35 Blood Culture - Preliminary Blood Assessment and Plan (1) Diarrhea Status: Acute Code(s): R19.7 - DIARRHEA, UNSPECIFIED SNOMED Code(s): 72178732 (2) Fever Status: Acute Code(s): R50.9 - FEVER, UNSPECIFIED SNOMED Code(s): 823791750 Plan: 1patient presented hospital with SIRS/sepsis in this patient who did have a fev er elevated white count with recent history of KS s/p PTCA and stenting to the LAD patient did have a chest x-ray that was negative for any pneumonia echocardiogram did not show any effusion patient main symptom remains to be diarrhea stool for C. difficile was negative and no evidence of any swelling or hematoma to the right groin area with a question of possible abdominal source 2-C. difficile PCR came back negative stool culture currently pending 3- CT of abdominal pelvis did not show any acute abnormality 4patient has shown clinical improvement fever has resolved white count has normalized patient has been insisting on going home we will consider 10-day course of oral Augmentin on discharge and close outpatient follow-up discussed with FISHING TOOL SUPERVISOR for admitting team Dictation was produced using [employer] dictation software. please excuse any grammatical, word or spelling errors. Time with Patient: Less than 30
== END 2024-04-09 13:15 | disposition home or self-care (01) | DRG 720 ==
LOC: EC 10:24 → 6NMEDSUR 15:16 → OBSVTOIN 15:17 → 6NMEDSUR 18:23
PROVIDERS: ADMIT Student in an Organized Health Care Education/Training Program; ATTEND Student in an Organized Health Care Education/Training Program
DX: A41.9 Sepsis, unspecified organism (principal); I21.3 ST elevation (STEMI) myocardial infarction of unspecified site; E87.20 Acidosis, unspecified; E87.1 Hypo-osmolality and hyponatremia; I10 Essential (primary) hypertension; E66.01 Morbid (severe) obesity due to excess calories; Z68.37 Body mass index [BMI] 37.0-37.9, adult; F32.A Depression, unspecified; D64.9 Anemia, unspecified; E87.3 Alkalosis; Z28.310 Unvaccinated for COVID-19; K52.9 Noninfective gastroenteritis and colitis, unspecified; E87.6 Hypokalemia; R82.71 Bacteriuria; I25.5 Ischemic cardiomyopathy; I25.10 Atherosclerotic heart disease of native coronary artery without angina pectoris; E78.5 Hyperlipidemia, unspecified; Z79.82 Long term (current) use of aspirin; Z79.84 Long term (current) use of oral hypoglycemic drugs; Z79.02 Long term (current) use of antithrombotics/antiplatelets; Z79.899 Other long term (current) drug therapy; Z95.5 Presence of coronary angioplasty implant and graft; Z86.718 Personal history of other venous thrombosis and embolism
CPT/HCPCS: 36415; 71046; 74177; 80053; 81001; 83605; 83630; 83735; 83880; 83993; 84145; 84484; 85025; 85027; 85652; 86140; 87040; 87045; 87046; 87324; 87449; 87493; 87636; 93005; 93308; 96361; 96374; 96375; 99285

== ENCOUNTER → 2024-05-31 | Outpatient (CLI) | payer OTHER ==
[2024-05-31 17:35] LABS: ALT 129 U/L (10-49); AST 56 U/L (14-35); Chol/HDL Ratio 2.71 Ratio; LDL Cholesterol,Calculated 43.4 mg/dL (0.0-131.0)
== END | disposition home or self-care (01) ==
LOC: LABWHC1 09:41
PROVIDERS: ATTEND Internal Medicine Interventional Cardiology
DX: E78.2 Mixed hyperlipidemia (principal)
CPT/HCPCS: 36415; 80061; 84450; 84460

== ENCOUNTER 2025-01-05 07:40 | Emergency (ER) | payer OTHER ==
--- NOTE | 2025-01-05 07:53 | ED ---
General Adult HPI - General Chief complaint: Extremity Injury, Lower Stated complaint: Left foot injury with nail Time Seen by Provider: 01/05/25 07:45 Source: patient, RN notes reviewed Mode of arrival: ambulatory Limitations: no limitations - History of Present Illness Initial comments: 39-year-old male presents to the emergency department for evaluation of nail puncture wound to his left foot. Patient states that he stepped on a board with 3 nail sticking out of it yesterday. He notes that he stepped onto the nail with his boot on. He states that the nail punctured through his boot. He was able to remove this. He states that he is unsure if there is a possibility of foreign body in his foot. He states that he had a tetanus shot greater than 5 years ago. - Related Data Home Medications Medication Instructions Recorded Confirmed Atorvastatin [Lipitor] 40 mg PO DAILY 12/17/24 12/17/24 Escitalopram [Lexapro] 20 mg PO DAILY 12/17/24 12/17/24 Folic Acid 1 mg PO DAILY 12/17/24 12/17/24 Vitamin B Complex 1 cap PO DAILY 12/17/24 12/17/24 Previous Rx's Medication Instructions Recorded Aspirin 81 mg PO DAILY #30 tab 04/04/24 Ezetimibe [Zetia] 10 mg PO DAILY #30 tab 04/04/24 Losartan [Cozaar] 12.5 mg PO BID #30 tab 04/04/24 Spironolactone [Aldactone] 12.5 mg PO DAILY #30 tab 04/04/24 Ticagrelor [Brilinta] 90 mg PO BID #60 tab 04/04/24 Cholecalciferol [Vitamin D3 (25 100 mcg PO DAILY #120 tab 12/18/24 Mcg = 1000 Iu)] Dapagliflozin Propanediol [Farxiga] 10 mg PO DAILY #90 tab 12/18/24 Pantoprazole [Protonix] 40 mg PO AC-BRKFST #60 tab 12/18/24 Ciprofloxacin HCl [Cipro] 500 mg PO Q12HR #10 tablet 01/05/25 HYDROcodone/APAP 5-325MG [Frontenac 5] 1 each PO Q6HR PRN #12 tab 01/05/25 Allergies Allergy/AdvReac Type Severity Reaction Status Date / Time No Known Allergies Allergy Verified 01/05/25 07:44 Review of Systems ROS Statement: Those systems with pertinent positive or pertinent negative responses have been documented in the HPI. ROS Other: All systems not noted in ROS Statement are negative. Past Medical History Past Medical History: Hypertension, Myocardial Infarction (IA) Additional Past Medical History / Comment(s): dvt- right leg Last Myocardial Infarction Date:: 04/02/24 History of Any Multi-Drug Resistant Organisms: None Reported Past Surgical History: Appendectomy Additional Past Surgical History / Comment(s): right shoulder Additional Past Anesthesia/Blood Transfusion Reaction / Comment(s): difficulty coming out of anesthesia after shoulder surgery Past Psychological History: Depression Smoking Status: Never smoker Past Alcohol Use History: None Reported Past Drug Use History: Marijuana General Exam Limitations: no limitations General appearance: alert, in no apparent distress Head exam: Present: atraumatic, normocephalic, normal inspection Eye exam: Present: normal appearance, PERRL, EOMI. Absent: scleral icterus, conjunctival injection, periorbital swelling Extremities exam: Present: normal inspection, full ROM, normal capillary refill, other (2 mm puncture wound to the lateral left midfoot). Absent: tenderness, pedal edema, joint swelling, calf tenderness Neurological exam: Present: alert, oriented X3 Psychiatric exam: Present: normal affect, normal mood Skin exam: Present: warm, dry, normal color. Absent: intact Course Vital Signs 01/05/25 01/05/25 07:42 09:14 Temperature 97.9 F 98.6 F Pulse Rate 67 48 L Respiratory 20 18 Rate Blood Pressure 124/74 110/65 O2 Sat by Pulse 99 97 Oximetry Medical Decision Making - Medical Decision Making Was pt. sent in by a medical professional or institution (, PA, AGER OPERATOR, urgent care, hospital, or residential...) When possible be specific @ -No Did you speak to anyone other than the patient for history (EMS, parent, family, police, friend...)? What history was obtained from this source @ -No Did you review nursing and triage notes (agree or disagree)? Why? @ -I reviewed and agree with nursing and triage notes Were old charts reviewed (outside hosp., previous admission, EMS record, old EKG, old radiological studies, urgent care reports/EKG's, residential records)? Report findings @ -No old charts were reviewed Differential Diagnosis (chest pain, altered mental status, abdominal pain women, abdominal pain men, vaginal bleeding, weakness, fever, dyspnea, syncope, headache, dizziness, GI bleed, back pain, seizure, CVA, palpatations, mental health, musculoskeletal)? @ -Differential Musculoskeletal Muscular strain, contusion, ligament sprain, fracture, arthritis, septic arthritis, bursitis, cellulitis, muscle spasm, nerve compression, DVT, arterial occlusion, herpes zoster, electrolyte abnormality, tumor.... This is not meant to be in all inclusive list EKG interpreted by me (3pts min.). @ -EKG shows sinus bradycardia first-degree AV block rate of 44, MA 212, QRS 95, QTQTc [id number] X-rays interpreted by me (1pt min.). @ -X-ray of the left foot shows no evidence of foreign body CT interpreted by me (1pt min.). @ -None done U/S interpreted by me (1pt. min.). @ -None done What testing was considered but not performed or refused? (CT, X-rays, U/S, labs)? Why? @ -None What meds were considered but not given or refused? Why? @ -None Did you discuss the management of the patient with other professionals (professionals i.e. , PA, AGER OPERATOR, lab, RT, psych nurse, social media strategist, business lawyer, teacher, licensing officer, case checker)? Give summary @ -No Was smoking cessation discussed for >3mins.? @ -No Was critical care preformed (if so, how long)? @ -No Were there social determinants of health that impacted care today? How? (Homelessness, low income, unemployed, alcoholism, drug addiction, transportation, low edu. Level, literacy, decrease access to med. care, skilled nursing, rehab)? @ -No Was there de-escalation of care discussed even if they declined (Discuss DNR or withdrawal of care, Hospice)? DNR status @ -No What co-morbidities impacted this encounter? (DM, HTN, Smoking, COPD, CAD, Cancer, CVA, ARF, Chemo, Hep., AIDS, mental health diagnosis, sleep apnea, morbid obesity)? @ -None Was patient admitted / discharged? Hospital course, mention meds given and route , prescriptions, significant lab abnormalities, going to OR and other pertinent info. @ -Discharged. Patient presented emergency department for evaluation of puncture wound to his left foot. Patient has a small puncture wound to the lateral left midfoot on the plantar surface of the foot. This occurred yesterday. There is signs of infection at this time. X-rays obtained which show no evidence of foreign body. Patient was updated on his tetanus vaccine. He was provided Toradol for pain. An EKG was performed to evaluate the QTQTc as the patient is on QT prolonging medications and he should be on ciprofloxacin for Pseudomonas coverage. QTc appropriate and the patient will be started on Cipro. He is understanding agreeable with this plan. Patient stable at time of discharge. Case discussed with Dr. Haynes. Undiagnosed new problem with uncertain prognosis? @ -No Drug Therapy requiring intensive monitoring for toxicity (Heparin, Nitro, Insulin, Cardizem)? @ -No Were any procedures done? @ -No Diagnosis/symptom? @ -Puncture wound to the left foot Acute, or Chronic, or Acute on Chronic? @ -Acute Uncomplicated (without systemic symptoms) or Complicated (systemic symptoms)? @ -Uncomplicated Side effects of treatment? @ -No Exacerbation, Progression, or Severe Exacerbation? @ -No Poses a threat to life or bodily function? How? (Chest pain, [place], [place], pneumonia, PE, COPD, DKA, ARF, appy, cholecystitis, CVA, Diverticulitis, Homicidal, Suicidal, threat to staff... and all critical care pts) @ -No Disposition Clinical Impression: Puncture wound of foot Disposition: HOME SELF-CARE Condition: Stable Instructions (If sedation given, give patient instructions): Puncture Wound (ED) Additional Instructions: Please lease picker antibiotics and take to completion. Follow up with your primary care provider. Return to the emergency department for new or worsening symptoms. Prescriptions: Ciprofloxacin HCl [Cipro] 500 mg PO Q12HR #10 tablet HYDROcodone/APAP 5-325MG [Frontenac 5] 1 each PO Q6HR PRN #12 tab PRN Reason: Pain Is patient prescribed a controlled substance at d/c from ED?: No Referrals: Lloyd Mayes MD [Primary Care Provider] - 1-2 days
[2025-01-05] MEDS: KETOROLAC 15 MG/ML 1 ML VIAL IM STA (08:30)
[2025-01-05] MEDS: DIPH,PERTUS(ACELL)TETVAC-LF 0.5 ML VIAL IM ONE (08:31)
--- NOTE | 2025-01-05 08:34 | XR ---
EXAMINATION TYPE: XR foot complete LT DATE OF EXAM: 01/05/2025 8:28 AM INDICATION: Patient age:Male; 39 years old; Reason for study: puncture wound from nail; PHH. pain COMPARISON: None TECHNIQUE: The left foot was examined in the AP, oblique, and lateral projections. FINDINGS: No evidence of any acute osseous pathology. No evidence of soft tissue swelling. Joints are preserve d. Incidental note is made of symphalangism of the fifth distal interphalangeal joint. Tiny plantar c alcaneal enthesophyte. No radiopaque foreign body. IMPRESSION: No evidence of acute fracture. No radiopaque foreign body. [facility], , 01/05/2025 8:31 AM
[2025-01-05] MEDS: CIPROFLOXACIN HCL 500 MG TAB PO STA (09:12)
[2025-01-05 09:16] VITALS: BP 110/65; PULSE 48; RESP 18; TEMP 98.6
== END 2025-01-05 09:15 | disposition home or self-care (01) ==
LOC: EC 07:40
DX: S91.332A Puncture wound without foreign body, left foot, initial encounter (principal); I44.0 Atrioventricular block, first degree; R00.1 Bradycardia, unspecified; Z23 Encounter for immunization; W45.0XXA Nail entering through skin, initial encounter
CPT/HCPCS: 99283; 96372; 90471; 93005; 73630; 90715; J1885